=== PATIENT | male | born 1945 | race Caucasian/White ===

== ENCOUNTER → 2019-06-27 13:55 | Outpatient (CLI) | payer MEDICARE, SELFPAY ==
[2016-03-03 15:43] VITALS: BMI 28.8
--- NOTE | 2019-06-27 14:52 | ART_ITS ---
Reason For Study: Diminished pulses Procedure A bilateral lower extremity continuous wave Doppler with analog waveform analysis,segmental pressures,and ankle brachial indexes without exercise. Left Segmental Pressures Left brachial= 130mmHg. Left posterior tibial artery = 225mmHg. Left dorsalis pedis artery = 220mmHg. Left digit = 140 mmHg. The left dorsalis pedis waveforms are triphasic. The left posterior tibial artery waveforms are triphasic. Right Segmental Pressures Right brachial= 131mmHg. Right posterior tibial artery = >254mmHg. Right dorsalis pedis artery = 189mmHg. Right digit = >254 mmHg. The right dorsalis pedis waveforms are triphasic. The right posterior tibial artery waveforms are triphasic. Indices The right ankle brachial index by the dorsalis pedis is 1.44. The right ankle brachial index by the posterior tibial artery is NC. The right digital-brachial index is NC. The left ankle brachial index by the dorsalis pedis is 1.68. The left ankle brachial index by the posterior tibial artery is 1.72. The left digital-brachial index is 1.07. Interpretation Summary Triphasic Doppler waveforms are noted at ankle level bilaterally. Pulse-volume recording waveform amplitudes appear satisfactory at low-thigh, calf, ankle, and digital levels bilaterally. Resting ankle-brachial indices are supra-normal bilaterally. The right digital-brachial index could not be determined due to the non-compressibility of the vasculature. The left digital-brachial index is normal. There is no evidence of arterial occlusive disease at ankle and digital level bilaterally. However, there is evidence of arterial calcification at ankle level bilaterally, and at digital level on the right. Ordering Physician: Amos Church Referring Physician: Jada Castellanos M.D. Performed By: Stephie Patterson RVT
== END ==
PROVIDERS: Family Provider Internal Medicine; PCP Internal Medicine; Referring Provider Podiatrist Foot & Ankle Surgery; Visit Provider Podiatrist Foot & Ankle Surgery
DX: R09.89 Other specified symptoms and signs involving the circulatory and respiratory systems (principal); M86.9 Osteomyelitis, unspecified
CPT/HCPCS: 93923

== ENCOUNTER 2019-07-01 05:56 | Day surgery (SDC) | payer MEDICARE, SELFPAY ==
[2016-03-03 15:43] VITALS: BMI 28.8
[2019-07-01] VITALS (7 sets, daily range): BP systolic 111–145; BP diastolic 51–72; PULSE 70–86; RESP 16; TEMP 36.2–36.7; O2SAT 97–100; BMI 27.1
[2019-07-01] MEDS: Lactated Ringers 1,000 ML 100 ML IV ×2 (06:35→09:35)
[2019-07-01 07:01] LABS: Bedside Glucose 127 mg/dL (70-110)
--- NOTE | 2019-07-01 07:30 | RAD_ITS ---
STUDY: X-RAY RIGHT FOOT, FOURTH TOE REASON FOR EXAM: Male, 74 years old. Pain, surgery. TECHNIQUE: 6 view(s) of the toe were obtained . COMPARISON: None. FINDINGS: Normal visualized metatarsus. The patient is status post amputation of the fourth toe from the distal aspect of the proximal phalanx. There is soft tissue swelling of distal to this level, nonspecific. RAD/Toe(s) Min 2 Views IMPRESSION: Status post amputation of the fourth toe from the distal aspect of the proximal phalanx with nonspecific soft tissue swelling at this level. Electronically Signed: Jo Cortes MD at 0:33 EDT , Service support ,
--- NOTE | 2019-07-01 07:30 | BON_PTH ---
PATIENT: OLAYINKA LICONA [place] [facility] [place][id number] AGE/SX: 74/M ROOM: RE07/01/[address]: Dr. Amos Church DPM : 1945 BED: DIS: 07/01/2019 SPEC #: [id number] RECD: 07/01/19 11:17 STATUS: ALDO REQ #: [id number] RUDDY: 07/01/19 07:[address]: Amos Church DEPT: SURGICAL PATHOLOGY RECD BY: Farzad Butler ENTERED: 07/01/19 13:19 SP TYPE: Bone OTHR DR: Dr. Jada Castellanos MD Tissues: Bone of foot, NOS Procedures: Decalcification bone/plaque Surgery Specimen Level III HEADER OPERATION: Amputation toe, distal Symes, fourth PRE-OP DIAGNOSIS: Osteomyelitis fourth toe right foot TISSUE SUBMITTED: Fourth toe proximal phalanx MICROSCOPIC DIAGNOSIS Fourth toe proximal phalanx, amputation toe: Pieces of bone with reactive changes, negative for acute osteomyelitis. DIMPLE:lc 07/06/19 MICROSCOPIC DESCRIPTION Slides are reviewed. GROSS DESCRIPTION Received in fixative is one container labeled with the patient's name and designated fourth toe proximal phalanx. The specimen consists of three pieces of bone that in aggregate measure 1.5 x 0.6 x 0.3 cm. The entire specimen is submitted in one cassette after decalcification. / DIMPLE:lc 07/01/19 TC:5 CPT: 13529, 63109
--- NOTE | 2019-07-01 09:03 | RAD_ITS ---
STUDY: X-RAY - RIGHT FOOT CLINICAL: Male, 74 years old. Fourth toe amputation. TECHNIQUE: 3 view(s) of the foot. COMPARISON: None. FINDINGS: There is enthesophyte at the Achilles tendon insertion site. Otherwise normal talus, calcaneus, and tarsal bones. There is multilevel degenerative disease involving the visualized subtalar, talonavicular, calcaneocuboid, tarsal and tarsometatarsal articulations. Normal metatarsi. There is degenerative arthrosis of the metatarsophalangeal joint of the hallux . Normal tibial and fibular sesamoid bones. There is degenerative arthrosis of the interphalangeal joint of the great toe. Normal phalanges of the great toe. Normal second through fifth metatarsophalangeal joints. The patient is status post amputation of the fourth finger from the proximal interphalangeal joints distally. There is soft tissue swelling at this level with small amount of air which may be related to recent amputation. An infectious process cannot be entirely excluded. There is narrowing of the interphalangeal joints and phalanges of the lesser toes. Vascular calcifications noted. There is no demonstrated fracture. RAD/Foot min 3 Views IMPRESSION: Is post amputation of the fourth toe from the proximal interphalangeal joint distally. Associated soft tissue swelling with air which may be related to recent surgery. Cannot exclude infectious process in the appropriate clinical context. Clinical correlation recommended. Electronically Signed: Jo Cortes MD at 0:32 EDT , Service support ,
--- NOTE | 2019-07-01 09:07 | DCINST_ITS ---
Discharge Activity: - - walk with post-op shoe. limit walking to bare minimum. elevate foot whenever nonambulatory May shower in (days): 14 Weight Bearing Status: Partial weight bearing - wear post-op shoe Keep extremity elevated above heart level: Operative Extremity Call your doctor if your incision/area has: Continuous Slow Oozing, Sudden Increased Bleeding, Foul Smelling Discharge, Swelling at the incision site Call your doctor if you observe: Fever of 101 or Higher Allergies/Adverse Reactions: Allergies adhesive tape Allergy (Verified 06/28/19 10:43) Rash bacitracin [From Neosporin ([id number])] Allergy (Verified 06/28/19 10:43) Other bacitracin zinc [From Neosporin ([id number]-ojm-ismvz)] Allergy (Verified 06/28/19 10:43) Other neomycin sulfate [From Neosporin (ybn-sjk-zdybo)] Allergy (Verified 06/28/19 10:43) Other polymyxin B [From Neosporin (ygf-xbt-ajnbm)] Allergy (Verified 06/28/19 10:43) Other polymyxin B sulfate [From Polysporin] Allergy (Verified 06/28/19 10:43) Rash Medications to take at Discharge Super Beta Prostate 2 tab PO BID 02/25/16 Cephalexin [Keflex] 500 mg PO TID 06/28/19 Vit A/Vit C/Vit E/Zinc/Copper [Preservision Areds Softgel] 1 ea PO BID 06/28/19 Primary Care Physician: Jada Castellanos MD [Primary Care Provider] - Test Results: Test results from this visit will be discussed in further detail at your follow- up appointment, if applicable. Please Follow Up With: Amos Church DPM - on thursday
[2019-07-01 10:16] LABS: Bedside Glucose 120 mg/dL (70-110)
--- NOTE | 2019-07-02 07:03 | PCM.OPRPT ---
Report of Operation Date of Procedure: 07/01/19 Pre-Operative Diagnosis: osteomyelitis of right 4th toe Post-Operative Diagnosis: osteomyelitis of right 4th toe Surgery/Procedure Performed:: partial amputation, right 4th toe Description of Surgical Findings:: nonviable distal phalanx, right hallux. no purulence in surgical field clinically healthy bone, right 4th toe proximal phalanx Type of Anesthesia:: General/Regional Specimen's removed: right 4th toe proximal phalanx for pathology and micro Drains: none Estimated Blood Loss (mL): 3 cc Description of Procedure: Patient is a 74 year old male who approximately 4 weeks ago, sustained direct injury to his 4th toe. He developed sore to his 4th toe that about 1 week ago developed redness. He presented to urgent care and was given keflex. He saw me last where a tissue culture was performed and revealed gram positive cocci. xrays taken last week were concerning for osteomyelitis of distal phalanx. I saw patient and discussed conservative vs surgical options. conservative options include wound care, antibiotics, possible hyperbarics. surgical options discussed with patient include partial 4th toe amputation. patient would like to pursue partial 4th toe amputation. I have ordered pvr and discussed these results with vascular who feels confident patient will heal. I have referred patient for clearance and he has been cleared both medically and cardiovascularly. I have discussed risks of this procedure not limited to infection, pain, swelling, bleeding, slow wound healing, loss of toe, cardiac arrest, dvt, . patient understands that if he has small vessel disease, he could be at risk of further amputation. patient also understands that if infection progresses to proximal phalanx, either he will require antibiotics vs further amputation. patient consents to procedure. patient was transferred from pre-op holding area and placed on operating room table in supine position. He was administered anesthesia and local field block was given to the 4th toe. a tourniquet was applied to the right leg but was never used. the right lower extremity was prepped and draped in the usual aseptic technique. Attention was directed to the 4th toe where an incision was made disarticuating the toe at pipj. there was no viable bone at distal phalanx. the toe was disarticulated at pipj. Using a sagittal saw, the head of proximal phalanx was resected and sent for pathology and micro. no purulence was present during case. all nonviable tissue was debrided. the toe was irrigated with 2500 cc of saline. the surgical incision was closed with 2-0 and 3-0 nylon. wound edges came together nicely without tension. counts were correct at time of closure. patient was transferred to pacu in stable condition. he was given percocet for pain. he will continue with antibiotic. he will ambulate with post-op shoe. - Complications none
== END 2019-07-01 11:01 | disposition home or self-care (01) ==
LOC: SDC 05:56 → AC 05:57
PROVIDERS: Family Provider Internal Medicine; PCP Internal Medicine; Referring Provider Podiatrist Foot & Ankle Surgery; Visit Provider Podiatrist Foot & Ankle Surgery
PROC: (CPT 28825; principal; 2019-07-01 07:15)
DX: M86.9 Osteomyelitis, unspecified (principal); Z85.038 Personal history of other malignant neoplasm of large intestine
CPT/HCPCS: 28825; 73630; 73660; 76000; 82962; 87015; 87070; 87075; 87077; 87102; 87116; 87176; 87205; 87206; 88304; 88311; J7120; J2405

== ENCOUNTER 2020-01-29 18:37 | Inpatient (IN) | payer MEDICARE, SELFPAY ==
[2019-07-01 06:20] VITALS: BMI 27.1
[2020-01-29 18:39] VITALS: BP 143/69; PULSE 89; RESP 26; TEMP 37.9; O2SAT 100; BMI 26.8
[2020-01-29 18:48] VITALS: BP 143/69; PULSE 89; RESP 26; TEMP 37.9; O2SAT 100
--- NOTE | 2020-01-29 18:58 | EKG12_ITS ---
Test Reason : CP, FEVER Blood Pressure : / mmHG Vent. Rate : 110 BPM Atrial Rate : 110 BPM P-R Int : 134 ms QRS Dur : 136 ms QT Int : 378 ms P-R-T Axes : 026 -75 090 degrees QTc Int : 511 ms Atrial-sensed ventricular-paced rhythm Abnormal ECG Confirmed by SADIQ HOLLINS, RAIZA ([id number]), editor in chief newspaper PATRICIA YOUNGBLOOD ([id number]) on 01/31/2020 3:21:29 PM Referred By: CONG PEARCE Confirmed By:RAIZA BABCOCK MD
--- NOTE | 2020-01-29 19:01 | ED.DCSUM_ITS ---
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 Temperature for EMS 100.9. He states that yesterday he was in his normal state of health. He mowed about 4 acres of grass. He states that today he started shaking and could not stop. He states he has a little bit of discomfort in his chest. He denies any cough or shortness of breath. He denies any runny nose sore throat diarrhea. He denies any changes with his urination. He states he always has problems with his stream and is treated for BPH. He also has a pacemaker for complete heart block and a history of A. fib for which he takes Xarelto. He denies seeing any rashes or skin lesions. Past Medical History - Allergies and Home Meds Allergies/Adverse Reactions: Allergies adhesive tape Allergy (Verified 01/29/20 18:43) Rash bacitracin [From Neosporin (kjl-ikd-pdpda)] Allergy (Verified 01/29/20 18:43) Other bacitracin zinc [From Neosporin (kvz-qnk-lwgxz)] Allergy (Verified 01/29/20 18:43) Other neomycin sulfate [From Neosporin (iqz-kty-ukciv)] Allergy (Verified 01/29/20 18:43) Other polymyxin B [From Neosporin (mln-pdk-rnwzp)] Allergy (Verified 01/29/20 18:43) Other polymyxin B sulfate [From Polysporin] Allergy (Verified 01/29/20 18:43) Rash Primary Care Physician: Jada Castellanos MD [Primary Care Provider] - Surgical History: no surgical history Smoking Status: Never smoker Review of Systems General: Reports: Chills, Fever. Denies: Sweats Eyes: Denies: Visual changes - bilaterally, Diplopia ENT: Denies: Bilateral ear pain, Left ear pain, Right ear pain, Rhinorrhea, Sore throat Cardiovascular: Reports: Chest pain. Denies: Palpitations Respiratory: Denies: Dyspnea, Cough, Dyspnea on exertion Gastrointestinal: Denies: Abdominal pain, Nausea, Vomiting, Diarrhea, Melena, Hematochezia Genitourinary: Denies: Dysuria, Hematuria, Frequency Musculoskeletal: Reports: Myalgias. Denies: Back pain, Extremity Pain Skin: Denies: Rash, Wounds Neurological: Denies: Headache, Weakness, Numbness Physical Exam Vital Signs/Narrative: Vital Signs Temp Pulse Resp BP Pulse Ox 01/29/20 18:48 100.3 F H 89 26 H 143/69 H 100 01/29/20 18:39 100.3 F H 89 26 H 143/69 H 100 Inital Vital Signs reviewed: Yes General: Well nourished, Well developed, No Acute Distress Head: Normocephalic, Atraumatic Eyes: Perrl, EOMI ENT: Moist mucous membranes, No rhinorrhea Neck: Supple, Nontender Cardiovascular: Regular rate, No murmurs, Tachycardia Respiratory: No distress, CTA bilaterally, Chest nontender Abdomen: Soft, Nontender, Nondistended, Normal bowel sounds Back: Nontender, Normal Inspection Extremities: Nontender, No edema Skin: Normal color, No rash Neurological: Alert, Oriented x3, Cranial nerves II-XII grossly intact, Normal Strength, Normal Sensation Psychological: Normal affect, Normal Mood Diagnostic/Tx/Re-eval Clinical Impression(s) from Imaging Studies Chest X-Ray 01/29/20 20:10 IMPRESSION: Slightly prominent bronchopulmonary marking pattern of the lungs, appearing similar to the previous study. There is no evidence of jamie infiltrate, atelectasis, or pleural effusion. Degenerative changes of the thoracic spine. Electronically Signed: Tone Ibrahim MD at 20:44 EDT , Service support , Laboratory Last Values WBC 10.8 K/mm3 (4.4-11.0) 01/29/20 18:45 RBC 4.53 M/mm3 (4.6-6.2) L 01/29/20 18:45 Hgb 13.0 g/dL (13.0-16.5) 01/29/20 18:45 Hct 41.4 % (40-54) 01/29/20 18:45 MCV 91.4 fL (80-94) 01/29/20 18:45 MCH 28.7 pg (27.0-32.0) 01/29/20 18:45 MCHC 31.4 g/dL (32-36) L 01/29/20 18:45 RDW Std Deviation 49.5 fl (35.1-43.9) H 01/29/20 18:45 RDW Coeff of Isael 14.7 % (11.6-14.6) H 01/29/20 18:45 Plt Count 143 K/mm3 (150-450) L 01/29/20 18:45 MPV 12.6 fl (6.2-12.0) H 01/29/20 18:45 Immature Gran % (Auto) 0.600 % (0.0-0.9) 01/29/20 18:45 Neut % (Auto) 88.9 % (47-70) H 01/29/20 18:45 Lymph % (Auto) 8.0 % (19-41) L 01/29/20 18:45 Traill % (Auto) 1.7 % (0-10) 01/29/20 18:45 Eos % (Auto) 0.6 % (0-5) 01/29/20 18:45 Baso % (Auto) 0.2 % (0-1) 01/29/20 18:45 Absolute Neuts (auto) 9.6 X10^3/uL (2.0-7.7) H 01/29/20 18:45 Absolute Lymphs (auto) 0.86 X10^3/uL (0.83-4.51) 01/29/20 18:45 Nucleated RBC % 0 % (0-5) 01/29/20 18:45 PT 15.5 SECONDS (11.7-14.9) H 01/29/20 18:45 INR 1.3 01/29/20 18:45 APTT 36.9 Seconds (24.1-36.2) H 01/29/20 18:45 Sodium 139 mmol/L (136-145) 01/29/20 18:45 Potassium 3.7 mmol/L (3.5-5.1) 01/29/20 18:45 Chloride 105 mmol/L (98-107) 01/29/20 18:45 Carbon Dioxide 30.0 mmol/L (21.0-32.0) 01/29/20 18:45 Anion Gap 4 (5-15) L 01/29/20 18:45 BUN 21 mg/dL (7-18) H 01/29/20 18:45 Creatinine 0.86 mg/dL (0.70-1.30) 01/29/20 18:45 Estim Creat Clear Calc 77.83 ml/min 01/29/20 18:45 Est GFR (MDRD) Af Amer 111 mL/min (>60) 01/29/20 18:45 Est GFR (MDRD) Non-Af 92 mL/min (>60) 01/29/20 18:45 BUN/Creatinine Ratio 24.4 RATIO (10-20) H 01/29/20 18:45 Glucose 101 mg/dL (74-106) 01/29/20 18:45 Lactic Acid 2.7 mmol/L (0.4-1.9) H* 01/29/20 18:45 Calcium 9.3 mg/dL (8.5-10.1) 01/29/20 18:45 Total Bilirubin 0.70 mg/dL (0.20-1.00) 01/29/20 18:45 AST 24 U/L (15-37) 01/29/20 18:45 ALT 28 U/L (16-61) 01/29/20 18:45 Alkaline Phosphatase 97 U/L (45-117) 01/29/20 18:45 Troponin I < 0.015 ng/mL (<0.045) 01/29/20 18:45 Total Protein 7.9 g/dL (6.4-8.2) 01/29/20 18:45 Albumin 4.2 g/dL (3.2-5.0) 01/29/20 18:45 Globulin 3.7 g/dL (2.2-4.2) 01/29/20 18:45 Albumin/Globulin Ratio 1.1 RATIO (0.9-2.4) 01/29/20 18:45 Urine Color Yellow (Yellow) 01/29/20 22: Urine Clarity Clear (Clear) 01/29/20 22: Urine pH 7.0 (5.0 - 8.0) 01/29/20: Ur Specific [place] 1.010 (1.002-1.030) 01/29/20 22: Urine Protein Negative mg/dl (Negative) 01/29/20 22: Urine Glucose (UA) Normal mg/dl (Normal) 01/29/20: Urine Ketones 5 mg/dl (Negative) H 01/29/20 22:27 Urine Occult Blood 25 /ul (Negative) H 01/29/20 22:27 Urine Nitrite Negative (Negative) 01/29/20 22: Urine Bilirubin Negative mg/dL (Negative) 01/29/20 22: Urine Urobilinogen Normal mg/dl (Normal) 01/29/20 22:27 Ur Leukocyte Esterase Negative /ul (Negative) 01/29/20 22:27 Urine RBC 0-5 SEEN /hpf (0-5) 01/29/20 22:27 Urine WBC 0-5 SEEN /hpf (0-5) 01/29/20 22:27 Ur Squamous Epith Cells 0-5 SEEN /hpf (0-5) 01/29/20 22: Urine Bacteria 0 SEEN /hpf (None Seen) 01/29/20 22: Urine Mucus 0 SEEN /hpf (<or=2+) 01/29/20 22:27 COVID-19 (HARITHA) Cancelled 01/29/20 19:02 - EKG Initial EKG Interpretation: - - EKG is ventricularly paced rhythm at a rate of 110 - Medical Decision Making At this point we do not have an obvious source. His COVID is negative. Urine negative chest x-ray with no obvious infiltrate. After blood cultures she received vancomycin and Zosyn. Plan is admission ED Disposition - Plan for ED Patient: Disposition: Acute Care Hospital [facility] Diagnosis: Sepsis, Fever, unknown origin Referrals: Jada Castellanos MD [Primary Care Provider] -
[2020-01-29 19:08] VITALS: BP 126/52; PULSE 110; RESP 20; O2SAT 97
[2020-01-29 19:16] LABS: Absolute Lymphocyte Count 0.86 X10^3/uL (0.83-4.51); Absolute Neutrophil Count 9.6 X10^3/uL (2.0-7.7); Basophil# 0.02 X10^3/uL; Basophil% 0.2 % (0-1); Eosinophil# 0.06 X10^3/uL; Eosinophils% 0.6 % (0-5); Hematocrit 41.4 % (40-54); Lymphocyte # 0.86 X10^3/ul (4.0); Mean Corp Hgb Conc 31.4 g/dL (32-36); Mean Corpuscular Hgb 28.7 pg (27.0-32.0); Mean Corpuscular Volume 91.4 fL (80-94); Mean Platelet Vol. 12.6 fl (6.2-12.0); Monocyte# 0.18 X10^3/uL; Monocyte% 1.7 % (0-10); NRBC Flagged by Analyzer 0 % (0-5); Neutrophil # 9.63 X10^3/uL (2.7-7.7); Neutrophil % 88.9 % (47-70); Platelet Count 143 K/mm3 (150-450); RBC Distribution Width CV 14.7 % (11.6-14.6); RBC Distribution Width SD 49.5 fl (35.1-43.9); Red Blood Count 4.53 M/mm3 (4.6-6.2); White Blood Count 10.8 K/mm3 (4.4-11.0)
[2020-01-29] MEDS: 0.9% Normal Saline 1,000 ML 999 ML IV (19:17)
[2020-01-29] MEDS: Acetaminophen 500 MG Tablet 1000 MG PO (19:18)
[2020-01-29] MEDS: 0.9% Normal Saline 1,000 ML 150 ML IV (19:20)
--- NOTE | 2020-01-29 19:21 | ED.RN ---
THIS NURSE IN THE ROOM COMPLETING EKG. PT STATES PLEASE DON'T LEAVE. I DON'T FEEL GOOD. SOMETHING IS WRONG. THIS NURSE ATTEMPTED TO CLARIFY WHAT THE PT MEANT BY THIS. PT UNABLE TO DESCRIBE FURTHER. DOES STATE I'M DIZZY. HEAD OF BED LOWERED. PT ENCOURAGED TO REST HIS HEAD BACK. PT PLACED ON O2 2L/MIN VIA NC. ADDITIONAL BP ATTEMPTED. BP CUFF NOT WORKING. BP CUFF CHANGED. PLACED ON LEFT UPPER ARM. PT CONTINUES TO COMPLAIN ABOUT SOMETHING NOT BEING RIGHT. PT SYMPTOMS IMPROVING. PT OK WITH THIS NURSE LEAVING THE ROOM. DR PEARCE NOTIFIED OF THE SAME.
[2020-01-29 19:23] LABS: International Normalized Ratio 1.3; Prothrombin Time (Protime)PT. 15.5 SECONDS (11.7-14.9)
[2020-01-29 19:24] LABS: Partial Thromboplast Time 36.9 Seconds (24.1-36.2)
[2020-01-29 19:26] VITALS: BP 126/52; PULSE 111; RESP 15; TEMP 38.3; O2SAT 100
[2020-01-29 19:37] LABS: ALB/GLOB Ratio 1.1 RATIO (0.9-2.4); AST(SGOT) 24 U/L (15-37); Alanine Aminotransfer ALT/SGPT 28 U/L (16-61); Albumin, Serum 4.2 g/dL (3.2-5.0); Alkaline Phosphatase 97 U/L (45-117); Anion Gap 4 (5-15); BUN 21 mg/dL (7-18); BUN/Creat Ratio 24.4 RATIO (10-20); Calcium,Total 9.3 mg/dL (8.5-10.1); Chloride 105 mmol/L (98-107); Creatinine, Serum 0.86 mg/dL (0.70-1.30); EST Glomerular Filtration Rate 92 mL/min (>60); Est Glom Filt Rate - Afr Amer 111 mL/min (>60); Estimated Creatinine Clearance 77.83 ml/min; Globulin 3.7 g/dL (2.2-4.2); Glucose 101 mg/dL (74-106); Potassium 3.7 mmol/L (3.5-5.1); Protein, Total 7.9 g/dL (6.4-8.2); Sodium Level 139 mmol/L (136-145)
[2020-01-29 19:59] LABS: Lactic Acid 2.7 mmol/L (0.4-1.9)
--- NOTE | 2020-01-29 20:10 | RAD_ITS ---
STUDY: X-RAY CHEST REASON FOR EXAM: Male, 74 years old. FEVER, CHEST TIGHTNESS, CHILLS TECHNIQUE: Single AP portable view of the chest. COMPARISON: Prior study of 01/09/2015 FINDINGS: monitoring specialist leads are present. There is a bipolar left-sided pacemaker. There is a slightly prominent bronchopulmonary marking pattern of the lungs. There is no demonstrated pleural abnormality. Normal size heart. Normal mediastinum and [place]. Normal visualized pulmonary arteries. Normal visualized aortic arch and descending thoracic aorta. There are diffuse degenerative changes of the visualized thoracic spine. Normal visualized ribs, clavicles, and shoulders. There is no demonstrated abnormality of the visualized soft tissue structures of the upper abdomen. RAD/Chest 1 View (Portable) IMPRESSION: Slightly prominent bronchopulmonary marking pattern of the lungs, appearing similar to the previous study. There is no evidence of jamie infiltrate, atelectasis, or pleural effusion. Degenerative changes of the thoracic spine. Electronically Signed: Tone Ibrahim MD at 20:44 EDT , Service support ,
[2020-01-29 20:41] VITALS: BP 137/48; PULSE 100; RESP 20; TEMP 37.9
[2020-01-29 22:30] VITALS: BP 103/57; PULSE 106; RESP 15; TEMP 37.3; O2SAT 97
[2020-01-29 22:39] LABS: Bacteria 0 SEEN /hpf (None Seen); Mucous, Urine 0 SEEN /hpf (<or=2+)
--- NOTE | 2020-01-29 22:46 | HP.PCM_ITS ---
Problem List (1) Severe sepsis Status: Acute (2) Sepsis Status: Acute (3) Diabetes Status: Chronic (4) Pacemaker Status: Chronic History of Present Illness Date of Admission: 01/29/20 Chief Complaint: Chills and rigors The patient is a 74 year old M with a significant history of colon cancer status post colectomy and radiation; permanent pacemaker; atrial fibrillation; diabetes mellitus; and BPH who presents emergency department with chills and rigors. His temperature checked by paramedics was 100.9 Fahrenheit. His symptoms started on the same day of presentation. A day before presentation patient was healthy and mowed 4 acres of grass. Patient denies any shortness of breath or cough. He denies any abdominal or new urinary symptoms. A chest x-ray and urinalysis was unrevealing. Lactic acid was 2.7. At the emergency department T-max was 100.9F. Heart rate was more than 90. Respiratory rate was more than 20. Covid test done at emergency department was negative. Past Medical History Past Medical History (Chronic Problems): Chronic Problems Diabetes (Chronic) Pacemaker (Chronic) Allergies adhesive tape Allergy (Verified 01/29/20 18:43) Rash bacitracin [From Neosporin ([id number])] Allergy (Verified 01/29/20 18:43) Other bacitracin zinc [From Neosporin ([id number])] Allergy (Verified 01/29/20 18:43) Other neomycin sulfate [From Neosporin ([id number])] Allergy (Verified 01/29/20 18:43) Other polymyxin B [From Neosporin ([id number])] Allergy (Verified 01/29/20 18:43) Other polymyxin B sulfate [From Polysporin] Allergy (Verified 01/29/20 18:43) Rash Home Medications: Ambulatory Orders Medication Instructions Recorded Super Beta Prostate 2 tab PO BID 02/25/16 Vit A/Vit C/Vit E/Zinc/Copper 1 ea PO BID 06/28/19 [Preservision Areds Softgel] Rivaroxaban [Xarelto] 20 mg PO DAILY 01/29/20 Surgical History: appendectomy, - - Permanent pacemaker; colectomy Smoking Status: Never smoker - *Family History Maternal History Items: Stroke Paternal History Items: - - His father in his late 60s reportedly from fluid around his heart. Review of Systems Constitutional: Reports: Chills, Fever. Denies: Weight Change HEENT: Denies: Head Aches, Sinus Congestion, Sinus Drainage Cardiovascular: Denies: Chest Pain, Palpitations Respiratory: Denies: Cough, Shortness of Breath, Shortness of breath at rest, Sputum production Gastrointestinal: Denies: Abdominal Pain, Nausea, Vomiting Genitourinary: Denies: Dysuria Musculoskeletal: Denies: Joint Pain, Joint Tenderness Skin: Denies: Rash, Wounds Neurological: Denies: Numbness, Tingling, Focal weakness Psychiatric: Denies: Anxiety, Depression, Homicidal Ideations, Suicidal Ideations Hematologic/ Lymphatic: Denies: Easy Bruising, Easy Bleeding VTE Information - Inpt Only VTE Present on Admission: No VTE Mechan Device Prophylaxis: None VTE Pharm Prophylaxis ordered?: No Reason prophylaxis not ordered:: Treatment Not Indicated - Home Xarelto for A. fib continued. Patient Problems: Active and Suspected Problems Sepsis (Acute) Severe sepsis (Acute) - Physical Exam Vitals/I&O's: Vital Signs Temp Pulse Resp BP Pulse Ox 99.2 F H 106 H 15 103/57 L 97 01/29/20 22:30 01/29/20 22:30 01/29/20 22:30 01/29/20 22:30 01/29/20 22:30 Oxygen Flow Rate (L/min) 2 Oxygen Delivery Method Room Air Weight: 87.3 kg Body Mass Index (BMI) 26.8 Finger Stick Blood Glucose 120 General: Alert, Oriented x3, Cooperative HEENT: Atraumatic, PERRLA, EOMI, Normocephalic Neck: Supple, No JVD, Negative Carotid Bruits Lungs: Clear to auscultation, Normal air movement, No rhonchi, No wheeze, No rales, Tachypneic Cardiovascular: Normal S1, Normal S2, No murmurs, Tachycardic Abdomen: Bowel Sounds Present, Soft, Non Tender Extremities: No edema, Capillary Refill Less than 3 Seconds Skin: No rashes, No breakdown Musculoskeletal: No Tenderness to Palpation of Joints or Extremities Neurological: Cranial nerves II-XII grossly intact Psych/Mental Status: Normal Affect, Appropriate Microbiology Past 72 Hours 01/29/20 19:02 Mucosa - Nasopharyngeal Coronavirus COVID-19 PCR - Final Laboratory Results 01/29/20 18:45: WBC 10.8, RBC 4.53 L, Hgb 13.0, Hct 41.4, MCV 91.4, MCH 28.7, MCHC 31.4 L, RDW Std Deviation 49.5 H, RDW Coeff of Isael 14.7 H, Plt Count 143 L, MPV 12.6 H, Immature Gran % (Auto) 0.600, Neut % (Auto) 88.9 H, Lymph % (Auto) 8.0 L, [place] % (Auto) 1.7, Eos % (Auto) 0.6, Baso % (Auto) 0.2, Absolute Neuts (auto) 9.6 H, Absolute Lymphs (auto) 0.86, Nucleated RBC % 0 01/29/20 18:45: PT 15.5 H, INR 1.3, APTT 36.9 H 01/29/20 18:45: Sodium 139, Potassium 3.7, Chloride 105, Carbon Dioxide 30.0, Anion Gap 4 L, BUN 21 H, Creatinine 0.86, Estim Creat Clear Calc 77.83, Est GFR (MDRD) Af Amer 111, Est GFR (MDRD) Non-Af 92, BUN/Creatinine Ratio 24.4 H, Glucose 101, Calcium 9.3, Total Bilirubin 0.70, AST 24, ALT 28, Alkaline Phosphatase 97, Troponin I < 0.015, Total Protein 7.9, Albumin 4.2, Globulin 3.7, Albumin/Globulin Ratio 1.1 01/29/20 18:45: Lactic Acid 2.7 H* 01/29/20 19:02: COVID-19 (HARITHA) Cancelled 01/29/20 22:27: Urine Color Pending, Urine Clarity Pending, Urine pH Pending, Ur Specific [place] Pending, Urine Protein Pending, Urine Glucose (UA) Pending, Urine Ketones Pending, Urine Occult Blood Pending, Urine Nitrite Pending, Urine Bilirubin Pending, Urine Urobilinogen Pending, Ur Leukocyte Esterase Pending, Urine RBC Pending, Urine WBC Pending, Ur Squamous Epith Cells Pending, Urine Bacteria Pending, Urine Mucus Pending Current Medications Sodium Chloride () 1,000 mls @ 150 mls/hr IV .[id number] [facility] Last Admin: 05/24/20 19:20 Dose: 150 mls/hr Documented by: Piperacillin Sod/Tazobactam (Sod 4.5 gm/ Sodium Chloride) 100 mls @ 200 mls/hr IV X1 ONE Stop: 01/29/20 22:52 Vancomycin HCl 2,000 mg/ (Sodium Chloride) 540 mls @ 250 mls/hr IV X1 ONE Stop: 01/30/20 00:39 Assessment/Plan All Active Problems Sepsis (Acute) Severe sepsis (Acute) The patient is a 74 year old M with a significant history of colon cancer status post colectomy and radiation; permanent pacemaker; atrial fibrillation; diabetes mellitus; and BPH who presents emergency department with chills and rigors and found to have SIRS criteria and with elevated lactic acid but no definite source of infection concerning for severe sepsis without a known source. Severe sepsis with unknown origin Patient meets SIRS criteria with fever; tachycardia and tachypnea. Lactic acid 2.7 means he meets severe sepsis criteria. Of note there is no source. COVID screen at emergency department was negative. Repeat covid screening a.m. Placed on enhanced precautions. COVID protocol. Admit to ICU. Consult cubing machine tender. Received vancomycin and Zosyn at emergency department. Continue vancomycin and Zosyn. Urinalysis was unremarkable. Chest x-ray was unr emarkable. Follow blood cultures obtained at emergency department. Lactic acid has been trended. Tylenol PRN. Received IV fluid bolus at emergency department and started on maintenance IV infusion. Continue maintenance IV infusion. Respiratory pathogen panel ordered. History of atrial fibrillation Xarelto continued. BPH: on home medication for BPH DVT prophylaxis: Not indicated since patient is on Xarelto. Xarelto continued. Inpatient E&M: 65136 Init Hosp L3
[2020-01-29 23:11] LABS: Reflex Lactate? Y
[2020-01-29 23:15] LABS: Color, Urine Yellow (Yellow); Glucose, Dipstick Normal (Normal); Ketone-Dipstick 5 mg/dl (Negative); Urine Bilirubin Dipstick Negative (Negative); Urine Clarity Clear (Clear)
[2020-01-29 23:16] LABS: Leukocyte Esterase-Dipstick Negative /ul (Negative); Nitrite-Dipstick Negative (Negative); Occult Blood-Urine 25 /ul (Negative); Protein-Dipstick Negative (Negative); Urine Urobilinogen Normal (Normal)
[2020-01-29 23:18] LABS: Squamous Epithelial Cells - UA 0-5 SEEN /hpf (0-5)
[2020-01-29 23:19] LABS: Red Blood Cells-Urine 0-5 SEEN /hpf (0-5); White Blood Cells 0-5 SEEN /hpf (0-5)
[2020-01-30] VITALS (58 sets, daily range): BP systolic 72–127; BP diastolic 28–63; PULSE 70–98; RESP 10–22; TEMP 36.6–37.2; O2SAT 96–100; BMI 26.4
[2020-01-30 00:59] LABS: Ferritin 482 ng/mL (26-388); Triglycerides 64 mg/dL
[2020-01-30] MEDS: 0.9% Normal Saline 1,000 ML 150 ML IV (01:11)
[2020-01-30 01:17] LABS: Lactic Acid 2.6 mmol/L (0.4-1.9)
--- NOTE | 2020-01-30 01:17 | NURSING ---
Pts primary rn aware of lactic result of 2.6 at this time.
--- NOTE | 2020-01-30 01:36 | PHA.PHARE_ITS ---
Consult Pharmacy has been consulted to manage selected antiobiotic: Vancomycin Type of Consult: New start Labs: Sodium 139 mmol/L (136-145) 01/29/20 18:45 Potassium 3.7 mmol/L (3.5-5.1) 01/29/20 18:45 Chloride 105 mmol/L (98-107) 01/29/20 18:45 Carbon Dioxide 30.0 mmol/L (21.0-32.0) 01/29/20 18:45 Anion Gap 4 (5-15) L 01/29/20 18:45 BUN 21 mg/dL (7-18) H 01/29/20 18:45 Creatinine 0.86 mg/dL (0.70-1.30) 01/29/20 18:45 Est GFR (MDRD) Af Amer 111 mL/min (>60) 01/29/20 18:45 Est GFR (MDRD) Non-Af 92 mL/min (>60) 01/29/20 18:45 BUN/Creatinine Ratio 24.4 RATIO (10-20) H 01/29/20 18:45 Glucose 101 mg/dL (74-106) 01/29/20 18:45 Microbiology: Microbiology 01/29/20 19:02 Mucosa - Nasopharyngeal Coronavirus COVID-19 PCR - Final Goal Trough: 15-20 mcg/mL Pharmacy Plan for Drug Dosing: Pharmacy Service will continue to monitor and adjust dosing as required. Medications Vancomycin HCl 1,250 mg/ (Sodium Chloride) 275 mls @ 167 mls/hr IV Q12H MELO Discontinued Medications Vancomycin HCl 2,000 mg/ (Sodium Chloride) 540 mls @ 250 mls/hr IV X1 ONE Stop: 01/30/20 00:39 Last Admin: 01/30/20 01:29 Dose: Infused Documented by: Follow-Up Labs: Trough Vancomycin Labs to be done on [date and time ordered]: 01/30 @ 1035
--- NOTE | 2020-01-30 02:24 | SEPSIS_ITS ---
Sepsis Note - Physical Exam/Vitals Objective: Chest X-Ray 01/29/20 20:10 IMPRESSION: Slightly prominent bronchopulmonary marking pattern of the lungs, appearing similar to the previous study. There is no evidence of jamie infiltrate, atelectasis, or pleural effusion. Degenerative changes of the thoracic spine. Electronically Signed: Tone Ibrahim MD at 20:44 EDT , Service support , Temp Pulse Resp BP Pulse Ox 98.6 F 72 13 72/35 L 100 01/30/20 00:57 01/30/20 02:00 01/30/20 02:00 01/30/20 02:00 01/30/20 02:00 01/30/20 01/30/20 01/29/20 00:53 00:26 22:27 WBC RBC Hgb Hct MCV MCH MCHC RDW Std Deviation RDW Coeff of Isael Plt Count MPV Immature Gran % (Auto) Neut % (Auto) Lymph % (Auto) [place] % (Auto) Eos % (Auto) Baso % (Auto) Absolute Neuts (auto) Absolute Lymphs (auto) Nucleated RBC % PT INR APTT Sodium Potassium Chloride Carbon Dioxide Anion Gap BUN Creatinine Estim Creat Clear Calc Est GFR (MDRD) Af Amer Est GFR (MDRD) Non-Af BUN/Creatinine Ratio Glucose Lactic Acid 2.6 H* Calcium Ferritin Total Bilirubin AST ALT Alkaline Phosphatase Troponin I Total Protein Albumin Globulin Albumin/Globulin Ratio Triglycerides Procalcitonin Urine Color Yellow Urine Clarity Clear Urine pH 7.0 Ur Specific [place] 1.010 Urine Protein Negative Urine Glucose (UA) Normal Urine Ketones 5 H Urine Occult Blood 25 H Urine Nitrite Negative Urine Bilirubin Negative Urine Urobilinogen Normal Ur Leukocyte Esterase Negative Urine RBC 0-5 SEEN Urine WBC 0-5 SEEN Ur Squamous Epith Cells 0-5 SEEN Urine Bacteria 0 SEEN Urine Mucus 0 SEEN COVID-19 (HARITHA) MRSA (PCR) Pending 01/29/20 01/29/20 01/29/20 19:02 18:45 18:45 WBC RBC Hgb Hct MCV MCH MCHC RDW Std Deviation RDW Coeff of Isael Plt Count MPV Immature Gran % (Auto) Neut % (Auto) Lymph % (Auto) [place] % (Auto) Eos % (Auto) Baso % (Auto) Absolute Neuts (auto) Absolute Lymphs (auto) Nucleated RBC % PT INR APTT Sodium Potassium Chloride Carbon Dioxide Anion Gap BUN Creatinine Estim Creat Clear Calc Est GFR (MDRD) Af Amer Est GFR (MDRD) Non-Af BUN/Creatinine Ratio Glucose Lactic Acid Calcium Ferritin 482 H Total Bilirubin AST ALT Alkaline Phosphatase Troponin I Total Protein Albumin Globulin Albumin/Globulin Ratio Triglycerides 64 Procalcitonin Pending Urine Color Urine Clarity Urine pH Ur Specific [place] Urine Protein Urine Glucose (UA) Urine Ketones Urine Occult Blood Urine Nitrite Urine Bilirubin Urine Urobilinogen Ur Leukocyte Esterase Urine RBC Urine WBC Ur Squamous Epith Cells Urine Bacteria Urine Mucus COVID-19 (HARITHA) Cancelled MRSA (PCR) 01/29/20 01/29/20 01/29/20 18:45 18:45 18:45 WBC RBC Hgb Hct MCV MCH MCHC RDW Std Deviation RDW Coeff of Isael Plt Count MPV Immature Gran % (Auto) Neut % (Auto) Lymph % (Auto) [place] % (Auto) Eos % (Auto) Baso % (Auto) Absolute Neuts (auto) Absolute Lymphs (auto) Nucleated RBC % PT 15.5 H INR 1.3 APTT 36.9 H Sodium 139 Potassium 3.7 Chloride 105 Carbon Dioxide 30.0 Anion Gap 4 L BUN 21 H Creatinine 0.86 Estim Creat Clear Calc 77.83 Est GFR (MDRD) Af Amer 111 Est GFR (MDRD) Non-Af 92 BUN/Creatinine Ratio 24.4 H Glucose 101 Lactic Acid 2.7 H* Calcium 9.3 Ferritin Total Bilirubin 0.70 AST 24 ALT 28 Alkaline Phosphatase 97 Troponin I < 0.015 Total Protein 7.9 Albumin 4.2 Globulin 3.7 Albumin/Globulin Ratio 1.1 Triglycerides Procalcitonin Urine Color Urine Clarity Urine pH Ur Specific [place] Urine Protein Urine Glucose (UA) Urine Ketones Urine Occult Blood Urine Nitrite Urine Bilirubin Urine Urobilinogen Ur Leukocyte Esterase Urine RBC Urine WBC Ur Squamous Epith Cells Urine Bacteria Urine Mucus COVID-19 (HARITHA) MRSA (PCR) 01/29/20 18:45 WBC 10.8 RBC 4.53 L Hgb 13.0 Hct 41.4 MCV 91.4 MCH 28.7 MCHC 31.4 L RDW Std Deviation 49.5 H RDW Coeff of Isael 14.7 H Plt Count 143 L MPV 12.6 H Immature Gran % (Auto) 0.600 Neut % (Auto) 88.9 H Lymph % (Auto) 8.0 L [place] % (Auto) 1.7 Eos % (Auto) 0.6 Baso % (Auto) 0.2 Absolute Neuts (auto) 9.6 H Absolute Lymphs (auto) 0.86 Nucleated RBC % 0 PT INR APTT Sodium Potassium Chloride Carbon Dioxide Anion Gap BUN Creatinine Estim Creat Clear Calc Est GFR (MDRD) Af Amer Est GFR (MDRD) Non-Af BUN/Creatinine Ratio Glucose Lactic Acid Calcium Ferritin Total Bilirubin AST ALT Alkaline Phosphatase Troponin I Total Protein Albumin Globulin Albumin/Globulin Ratio Triglycerides Procalcitonin Urine Color Urine Clarity Urine pH Ur Specific [place] Urine Protein Urine Glucose (UA) Urine Ketones Urine Occult Blood Urine Nitrite Urine Bilirubin Urine Urobilinogen Ur Leukocyte Esterase Urine RBC Urine WBC Ur Squamous Epith Cells Urine Bacteria Urine Mucus COVID-19 (HARITHA) MRSA (PCR) General: Alert, Oriented x3, Cooperative Lungs: Clear to auscultation, Normal air movement Cardiovascular: Regular rate, Regular Rhythm, No murmurs Capillary Refill: <3 seconds Peripheral Pulses: Normal Skin Color: [place] - Attestation Sepsis Attestation: Sepsis re-evaluation was performed
[2020-01-30] MEDS: 0.9% Normal Saline 1,000 ML 500 ML IV (02:32)
[2020-01-30 02:42] LABS: M R Staph aureus DNA By PCR Negative (Negative)
[2020-01-30 02:43] LABS: Probe Check PASS; Specimen Processing Control PASS
[2020-01-30 04:31] LABS: Basophil# 0.01 X10^3/uL; Basophil% 0.1 % (0-1); Eosinophil# 0.01 X10^3/uL; Eosinophils% 0.1 % (0-5); Hematocrit 32.6 % (40-54); Hemoglobin 10.4 g/dL (13.0-16.5); Lymphocyte % 7.8 % (19-41); Mean Corp Hgb Conc 31.9 g/dL (32-36); Mean Corpuscular Hgb 29.3 pg (27.0-32.0); Mean Corpuscular Volume 91.8 fL (80-94); Mean Platelet Vol. 11.1 fl (6.2-12.0); Monocyte% 6.2 % (0-10); NRBC Flagged by Analyzer 0 % (0-5); Neutrophil # 11.03 X10^3/uL (2.7-7.7); Neutrophil % 85.6 % (47-70); POSITIVE COUNT YES; Platelet Count 89 K/mm3 (150-450); RBC Distribution Width CV 15.2 % (11.6-14.6); RBC Distribution Width SD 50.8 fl (35.1-43.9); Red Blood Count 3.55 M/mm3 (4.6-6.2); White Blood Count 12.9 K/mm3 (4.4-11.0)
[2020-01-30 04:32] LABS: Differential Indicated SCAN CRITERIA MET
[2020-01-30 04:41] LABS: Anion Gap 7 (5-15); BUN 17 mg/dL (7-18); BUN/Creat Ratio 18.9 RATIO (10-20); Calcium,Total 7.7 mg/dL (8.5-10.1); Chloride 111 mmol/L (98-107); EST Glomerular Filtration Rate 87 mL/min (>60); Est Glom Filt Rate - Afr Amer 106 mL/min (>60); Estimated Creatinine Clearance 74.37 ml/min; Glucose 128 mg/dL (74-106); Sodium Level 143 mmol/L (136-145)
[2020-01-30 04:51] LABS: Differential Comment SCANNED
--- NOTE | 2020-01-30 05:14 | NURSING ---
Explained to pt risks/benefits of Levophed IV infusion for BP control; also explained increased frequency of BP monitoring. Pt repeated back information and stated understanding.
[2020-01-30] MEDS: 0.9% Saline Lock 10 ML Syringe IV (05:19)
--- NOTE | 2020-01-30 07:55 | CON.PCM_ITS ---
Problem List (1) BPH associated with nocturia Status: Acute (2) Septic shock Status: Acute (3) Sepsis Status: Acute Qualifiers: Sepsis acute organ dysfunction status: with acute organ dysfunction Severe sepsis acute organ dysfunction type: unspecified Severe sepsis shock status: with septic shock (4) Diabetes Status: Chronic (5) Pacemaker Status: Chronic Reason for Consult Date of Consultation: 01/30/20 Reason for Consultation: Septic shock History of Present Illness: The patient is a 74 year old M, with past medical history listed below, who presented to [facility] on 01/29/2020 secondary to fever and chills. Patient reportedly had mowed approximately 2 acres of grass earlier in the day, but on coming back into the house could not stop shaking. Patient did report some mild chest discomfort, but had denied any prodromal cough or shortness of breath. Patient has had constipation and been taking laxatives recently. Patient does report urinary hesitancy at baseline. Patient does have a history of complete heart block, A. fib and pacemaker. Patient takes Xarelto at baseline. No rashes or skin lesions have been reported. In the ER, patient had an extensive work-up. Patient had a negative COVID test, but remains in precaution secondary to continued concern. Chest x-ray showed no acute infiltrate. Blood cultures were obtained and patient was placed on vancomycin and Zosyn. Patient was admitted to the intensive care unit for further monitoring. Overnight, patient became progressively hypotensive. Patient had to be initiated on Levophed at 5 mcg to maintain appropriate blood pressures. Patient reports subjective improvement in overall condition. Patient states his chest pain is reproducible with palpation and he believes it is secondary to a pulled muscle. Patient denies any current dysuria. Patient does take herbal medications for prostate and states that he had surgery several years ago. Patient has been reportedly resistant to medication such as Flomax in the past. Patient did report that he has had some recent constipation. Patient had significant straining and did report hematochezia yesterday. This has not persisted overnight. This was not associated with nausea or vomiting. Patient does not have a history of GI bleed, but does have hemorrhoids per his report. Review of systems otherwise negative from a constitutional, HEENT, respiratory, cardiovascular, GI, genitourinary, musculoskeletal, skin, neurologic, psychiatric and hematologic system unless stated above. Past Medical History Past Medical History (Chronic Problems): Chronic Problems Diabetes (Chronic) Pacemaker (Chronic) Allergies adhesive tape Allergy (Verified 01/29/20 18:43) Rash bacitracin [From Neosporin ([id number])] Allergy (Verified 01/29/20 18:43) Other bacitracin zinc [From Neosporin ([id number])] Allergy (Verified 01/29/20 18:43) Other neomycin sulfate [From Neosporin ([id number])] Allergy (Verified 01/29/20 18:43) Other polymyxin B [From Neosporin ([id number])] Allergy (Verified 01/29/20 18:43) Other polymyxin B sulfate [From Polysporin] Allergy (Verified 01/29/20 18:43) Rash Home Medications: Ambulatory Orders Medication Instructions Recorded Super Beta Prostate 2 tab PO BID 02/25/16 Vit A/Vit C/Vit E/Zinc/Copper 1 ea PO BID 06/28/19 [Preservision Areds Softgel] Rivaroxaban [Xarelto] 20 mg PO DAILY 01/29/20 Surgical History: appendectomy, - - Permanent pacemaker; colectomy Smoking Status: Never smoker - *Family History Maternal History Items: Stroke Paternal History Items: - - His father in his late 60s reportedly from fluid around his heart. Review of Systems Comment: See HPI Patient Problems: Active and Suspected Problems BPH associated with nocturia (Acute) Septic shock (Acute) Sepsis (Acute) Severe sepsis (Acute) Fever, unknown origin (Acute) Objective: All imaging was personally reviewed. Chest x-ray was unremarkable. Patient has not had any recent cardiovascular work-up. Patient has not had any pulmonary function test. - Physical Exam Vitals/I&O's: Vital Signs Temp Pulse Resp BP Pulse Ox 36.6 C 70 15 117/52 L 100 01/30/20 04:00 01/30/20 07:00 01/30/20 07:00 01/30/20 07:00 01/30/20 07:00 Oxygen Flow Rate (L/min) 2 Oxygen Delivery Method Nasal Cannula Weight: 85.8 kg Body Mass Index (BMI) 26.4 Finger Stick Blood Glucose 120 Intake and Output for Last 24 Hours 01/28/20 01/29/20 01/30/20 23:59 23:59 23:59 Intake Total 1100 / 1100 2741.48 / 2741.48 Output Total 525 / 525 Balance 1100 / 1100 2216.48 / 2216.48 General: Alert, Oriented x3, Cooperative, No apparent distress, Well developed, Well nourished, - - Appears stated age. No conversational dyspnea. HEENT: Atraumatic, PERRLA, EOMI, Normocephalic, - - No scleral icterus or injection noted Oral: Moist Mucosa, No Gingival or Mucosal Lesions/ Ulcerations Neck: Supple, No JVD, No Nodes, Trachea Midline Lungs: Clear to auscultation, Normal air movement, No rhonchi, No wheeze, No rales, - - Symmetric expansion. No dullness to percussion. Cardiovascular: Regular rate, Regular Rhythm, Normal S1, Normal S2, No murmurs, No rub noted, No Gallop, - - Paced rhythm Abdomen: Bowel Sounds Present, Soft, Non Tender, Non-Distended Extremities: No clubbing, No cyanosis, No edema, Capillary Refill Less than 3 Seconds Skin: No rashes, No breakdown Musculoskeletal: No Tenderness to Palpation of Joints or Extremities Lymphatic: No Cervical, Supraclavicular, or Inguinal Adenopathy Neurological: Cranial nerves II-XII grossly intact, Neuro grossly intact, Motor Exam 5/5 strength throughout Psych/Mental Status: Alert and oriented to time, place, person, mood and affect Microbiology Past 72 Hours 01/30/20 00:15 Mucosa - Nose Respiratory Panel (PCR) - Final 01/29/20 10:27 Urine, Clean Catch Streptococcus pneumoniae Antigen (M - Final 01/29/20 10:27 Urine, Random Legionella Antigen - Final 01/29/20 19:02 Mucosa - Nasopharyngeal Coronavirus COVID-19 PCR - Final Laboratory Results 01/29/20 18:45: WBC 10.8, RBC 4.53 L, Hgb 13.0, Hct 41.4, MCV 91.4, MCH 28.7, MCHC 31.4 L, RDW Std Deviation 49.5 H, RDW Coeff of Isael 14.7 H, Plt Count 143 L, MPV 12.6 H, Immature Gran % (Auto) 0.600, Neut % (Auto) 88.9 H, Lymph % (Auto) 8.0 L, [place] % (Auto) 1.7, Eos % (Auto) 0.6, Baso % (Auto) 0.2, Absolute Neuts (auto) 9.6 H, Absolute Lymphs (auto) 0.86, Nucleated RBC % 0 01/29/20 18:45: PT 15.5 H, INR 1.3, APTT 36.9 H 01/29/20 18:45: Sodium 139, Potassium 3.7, Chloride 105, Carbon Dioxide 30.0, Anion Gap 4 L, BUN 21 H, Creatinine 0.86, Estim Creat Clear Calc 77.83, Est GFR (MDRD) Af Amer 111, Est GFR (MDRD) Non-Af 92, BUN/Creatinine Ratio 24.4 H, Glucose 101, Calcium 9.3, Total Bilirubin 0.70, AST 24, ALT 28, Alkaline Phosphatase 97, Troponin I < 0.015, Total Protein 7.9, Albumin 4.2, Globulin 3.7, Albumin/Globulin Ratio 1.1 01/29/20 18:45: Lactic Acid 2.7 H* 01/29/20 18:45: Ferritin 482 H, Triglycerides 64 01/29/20 18:45: Procalcitonin Pending 01/29/20 19:02: COVID-19 (HARITHA) Cancelled 01/29/20 22:27: Urine Color Yellow, Urine Clarity Clear, Urine pH 7.0, Ur Sp ecific [place] 1.010, Urine Protein Negative, Urine Glucose (UA) Normal, Urine Ketones 5 H, Urine Occult Blood 25 H, Urine Nitrite Negative, Urine Bilirubin Negative, Urine Urobilinogen Normal, Ur Leukocyte Esterase Negative, Urine RBC 0-5 SEEN, Urine WBC 0-5 SEEN, Ur Squamous Epith Cells 0-5 SEEN, Urine Bacteria 0 SEEN, Urine Mucus 0 SEEN 01/30/20 00:26: Lactic Acid 2.6 H* 01/30/20 00:53: MRSA (PCR) Negative 01/30/20 04:10: WBC 12.9 H, RBC 3.55 L, Hgb 10.4 L, Hct 32.6 L, MCV 91.8, MCH 29.3, MCHC 31.9 L, RDW Std Deviation 50.8 H, RDW Coeff of Isael 15.2 H, Plt Count 89 L, MPV 11.1, Immature Gran % (Auto) 0.200, Neut % (Auto) 85.6 H, Lymph % (Auto) 7.8 L, [place] % (Auto) 6.2, Eos % (Auto) 0.1, Baso % (Auto) 0.1, Absolute Neuts (auto) 11.0 H, Absolute Lymphs (auto) 1.00, Nucleated RBC % 0, Differential Comment SCANNED 01/30/20 04:10: Sodium 143, Potassium 4.0, Chloride 111 H, Carbon Dioxide 25.0, Anion Gap 7, BUN 17, Creatinine 0.90, Estim Creat Clear Calc 74.37, Est GFR (MDRD) Af Amer 106, Est GFR (MDRD) Non-Af 87, BUN/Creatinine Ratio 18.9, Glucose 128 H, Calcium 7.7 L Current Medications Acetaminophen (Tylenol) 650 mg PO Q4H PRN PRN PRN Reason: For fever/pain 1-10. Dextrose (D50w Syringe) 0 gm IV X1 PRN; Protocol PRN Reason: Hypoglycemia Glucagon () 1 mg IM .X1 PRN PRN Reason: Hypoglycemia Vancomycin IV Pharmacy to Dose (1 ea/ Sodium Chloride) 500 mls @ 250 mls/hr IV Q12 M[facility]; Protocol Piperacillin Sod/Tazobactam (Sod 3.375 gm/ Sodium Chloride) 50 mls @ 12.5 mls/hr IV Q8 M[facility] Last Admin: 01/30/20 05:19 Dose: 12.5 mls/hr Documented by: Sodium Chloride () 250 mls @ 15 mls/hr IV .[id number] PRN PRN Reason: Saline Flush Sodium Chloride () 250 mls @ 15 mls/hr IV .[id number] PRN PRN Reason: Additional IVPB Infusion Vancomycin HCl 1,250 mg/ (Sodium Chloride) 275 mls @ 167 mls/hr IV Q12H [facility] Norepinephrine Bitartrate 8 mg (/ Sodium Chloride) 250 mls @ 9.375 mls/hr CONT INF .[id number] COUNTS INCLUDE 234 BEDS AT THE [facility]; Protocol Last Titration: 01/30/20 07:00 Dose: 5 mcg/min, 9.4 mls/hr Documented by: Multivitamins/Minerals (Multivitamin With Minerals (Bkc)) 1 tablet PO DAILY@0800 COUNTS INCLUDE 234 BEDS AT THE [facility] Non-Formulary Medication (Super Beta Prostate) 2 tab PO BID [facility] Ondansetron HCl (Zofran) 4 mg IV Q8H PRN PRN PRN Reason: NAUSEA/VOMITING Rivaroxaban (Xarelto) 20 mg PO DAILY [facility] Sodium Chloride () 10 - 40 ml IV UD PRN PRN Reason: SALINE FLUSH Last Admin: 01/30/20 05:19 Dose: 10 ml Documented by: Clinical Impression(s) from Imaging Studies Chest X-Ray 01/29/20 20:10 IMPRESSION: Slightly prominent bronchopulmonary marking pattern of the lungs, appearing similar to the previous study. There is no evidence of jamie infiltrate, atelectasis, or pleural effusion. Degenerative changes of the thoracic spine. Electronically Signed: Tone Ibrahim MD at 20:44 EDT , Service support , Assessment/Plan Active and Suspected Problems BPH associated with nocturia (Acute) Septic shock (Acute) Sepsis (Acute) Severe sepsis (Acute) Fever, unknown origin (Acute) RECOMMENDATIONS: 1. Continue empiric antibiotics 2. Wean Levophed as tolerated 3. Obtain echocardiogram 4. Wean oxygen as tolerated 5. Cancel repeat COVID test if secondary diagnosis is found IMPRESSIONS: 1. Septic shock of unclear etiology Patient did present with fever and elevated lactic acid. Renal function a ppears to be doing okay at this time. Patient did progressively become hypotensive overnight requiring pressor therapy. Patient is on empiric antibiotics, but work-up thus far has been unremarkable. Await blood cultures. PRN Tylenol is appropriate. Viral work-up has been negative. Patient is not giving any symptomatology of COVID-19 outside of fever at this time. Patient is not having any respiratory or GI complaints. Will obtain an echocardiogram for possible cardiac etiology as patient does have a history of pacer/A. fib. No echo is available for review at this time. 2. History of A. fib/block status post pacemaker No baseline cardiac function is available in our computer. This would not account for patient's fever, but will obtain an echocardiogram for quantification and clarification of function. 3. BPH/advanced age/hemorrhoids Complicates care, management, recovery and prognosis. Patient does not require a Ward at this time as urine output has been appropriate. Patient is on empiric antibiotics. Patient did have some hemorrhoidal bleeding reported yesterday with some fall in hemoglobin. This is likely secondary to dilution as ongoing bleeding has not been reported. No indication for transfusion at this time. TIME: 32 minutes critical care time spent addressing patient's septic shock, ALidya leung, BPH, review of all data and collaboration with care team (7 AM to 8:30 AM) [id number]: [id number] Critical care first hour
--- NOTE | 2020-01-30 08:38 | ECHOD_ITS ---
Reason For Study: OTHER-severe sepsis Procedure This was a 2D Doppler, Color Flow transthoracic echocardiogram. Exam performed portable in ICU/CCU. Left Ventricle Normal LV size. Moderate global left ventricular systolic dysfunction. The estimated ejection fraction is 37 %. There is moderate global hypokinesis of the left ventricle. Apical wall motion abnormality may reflect pacemaker activation. Right Ventricle Normal RV size. Normal systolic function. Atria The left atrium is mildly enlarged. Normal right atrium. Mitral Valve Normal mitral valve. Mild-Moderate (1-2+) eccentric mitral valve insufficiency. Tricuspid Valve Normal tricuspid valve. Mild (1+) tricuspid valve insufficiency. Pulmonary artery systolic pressure is 34 mmHg. Aortic Valve Trisinus/trileaflet aortic valve. Mild focal aortic valve calcification. Pulmonic Valve Normal pulmonic valve. Great Vessels Normal aortic root. The pulmonary artery is normal size. Normal inferior vena cava. Pericardium/Pleural No pericardial effusion. MMode/2D Measurements & Calculations LVIDd: 5.7 cm IVSd: 1.1 cm Ao root diam: 3.0 cm LVIDs: 4.3 cm LVPWd: 1.1 cm RVDd: 3.5 cm FS: 25.7 % LAV(MOD-bp): 69.3 ml LA A4 area: 19.0 cm2 LA dimension(2D): 4.1 cm LAV(MOD-bp) Indexed: 33.7 ml/m2 LAV(MOD-sp2): 74.9 ml LAV(MOD-sp4): 58.3 ml RA A4 area: 14.8 cm2 Time Measurements MV dec time: 0.22 sec Doppler Measurements & Calculations MV E max jeremías: 113.8 cm/sec Lat Peak E' Jeremías: 4.9 cm/sec Med Peak E' Jeremías: 5.8 cm/sec MV A max jeremías: 133.2 cm/sec E/E' lat: 23.2 E/E' med: 19.6 MV E/A: 0.85 Ao V2 max: 158.8 cm/sec LV V1 max: 97.8 cm/sec MR max jeremías: 510.5 cm/sec Ao max P.1 mmHg LV V1 max P.8 mmHg MR max P.3 mmHg MR mean jeremías: 382.0 cm/sec MR mean P.6 mmHg MR VTI: 177.7 cm PA V2 max: 103.2 cm/sec TR max jeremías: 275.7 cm/sec TR max P.4 mmHg Interpretation Summary Normal LV size. Moderate global left ventricular systolic dysfunction. The estimated ejection fraction is 37 %. Mild-Moderate (1-2+) eccentric mitral valve insufficiency. Pulmonary artery systolic pressure is 34 mmHg. Ordering Physician: Mao Felder Referring Physician: Jada Castellanos Performed By: Meagan Taylor RDCS, RVT
[2020-01-30 09:17] LABS: Procalcitonin 0.18 ng/mL (0.00-0.09)
[2020-01-30] MEDS: Multivitamins,Ther W-Minerals Tablet 1 TABLET PO (12:12)
[2020-01-30] MEDS: Rivaroxaban 20 MG Tablet PO (12:13)
--- NOTE | 2020-01-30 12:20 | PN_ITS ---
Patient Problems: Active and Suspected Problems BPH associated with nocturia (Acute) Septic shock (Acute) Sepsis (Acute) Severe sepsis (Acute) Fever, unknown origin (Acute) Reason for Visit: septic shock Subjective: breathing better. coughing. Vitals/I&O's: Vital Signs Temp Pulse Resp BP Pulse Ox 37.1 C 70 20 H 114/51 L 100 01/30/20 08:00 01/30/20 10:00 01/30/20 10:00 01/30/20 10:00 01/30/20 10:00 Oxygen Flow Rate (L/min) 2 Oxygen Delivery Method Nasal Cannula Weight: 85.8 kg Body Mass Index (BMI) 26.4 Finger Stick Blood Glucose 120 Intake and Output for Last 24 Hours 01/28/20 01/29/20 01/30/20 23:59 23:59 23:59 Intake Total 1100 / 1100 2819.68 / 2819.68 Output Total 525 / 525 Balance 1100 / 1100 2294.68 / 2294.68 General: Alert, Cooperative, No apparent distress HEENT: Atraumatic, Normocephalic Oral: Moist Mucosa, No Gingival or Mucosal Lesions/ Ulcerations Neck: No Nodes, Trachea Midline Lungs: Diminished, - - crackles RLL. Cardiovascular: Regular rate, Regular Rhythm, Normal S1, Normal S2 Abdomen: Bowel Sounds Present, Soft, Non Tender, Non-Distended, No Hepato- splenomegaly Extremities: No edema, No Calf Tenderness Skin: No rashes, No breakdown Psych/Mental Status: Normal Affect, Appropriate Microbiology Past 72 Hours 01/30/20 00:15 Mucosa - Nose Respiratory Panel (PCR) - Final 01/29/20 10:27 Urine, Clean Catch Streptococcus pneumoniae Antigen (M - Final 01/29/20 10:27 Urine, Random Legionella Antigen - Final 01/29/20 19:02 Mucosa - Nasopharyngeal Coronavirus COVID-19 PCR - Final Laboratory Results 01/29/20 18:45: WBC 10.8, RBC 4.53 L, Hgb 13.0, Hct 41.4, MCV 91.4, MCH 28.7, MCHC 31.4 L, RDW Std Deviation 49.5 H, RDW Coeff of Isael 14.7 H, Plt Count 143 L, MPV 12.6 H, Immature Gran % (Auto) 0.600, Neut % (Auto) 88.9 H, Lymph % (Auto) 8.0 L, [place] % (Auto) 1.7, Eos % (Auto) 0.6, Baso % (Auto) 0.2, Absolute Neuts (a uto) 9.6 H, Absolute Lymphs (auto) 0.86, Nucleated RBC % 0 01/29/20 18:45: PT 15.5 H, INR 1.3, APTT 36.9 H 01/29/20 18:45: Sodium 139, Potassium 3.7, Chloride 105, Carbon Dioxide 30.0, Anion Gap 4 L, BUN 21 H, Creatinine 0.86, Estim Creat Clear Calc 77.83, Est GFR (MDRD) Af Amer 111, Est GFR (MDRD) Non-Af 92, BUN/Creatinine Ratio 24.4 H, Glucose 101, Calcium 9.3, Total Bilirubin 0.70, AST 24, ALT 28, Alkaline Phosphatase 97, Troponin I < 0.015, Total Protein 7.9, Albumin 4.2, Globulin 3.7, Albumin/Globulin Ratio 1.1 01/29/20 18:45: Lactic Acid 2.7 H* 01/29/20 18:45: Ferritin 482 H, Triglycerides 64 01/29/20 18:45: Procalcitonin 0.18 H 01/29/20 19:02: COVID-19 (HARITHA) Cancelled 01/29/20 22:27: Urine Color Yellow, Urine Clarity Clear, Urine pH 7.0, Ur Specific [place] 1.010, Urine Protein Negative, Urine Glucose (UA) Normal, Urine Ketones 5 H, Urine Occult Blood 25 H, Urine Nitrite Negative, Urine Bilirubin Negative, Urine Urobilinogen Normal, Ur Leukocyte Esterase Negative, Urine RBC 0-5 SEEN, Urine WBC 0-5 SEEN, Ur Squamous Epith Cells 0-5 SEEN, Urine Bacteria 0 SEEN, Urine Mucus 0 SEEN 01/30/20 00:26: Lactic Acid 2.6 H* 01/30/20 00:53: MRSA (PCR) Negative 01/30/20 04:10: WBC 12.9 H, RBC 3.55 L, Hgb 10.4 L, Hct 32.6 L, MCV 91.8, MCH 29.3, MCHC 31.9 L, RDW Std Deviation 50.8 H, RDW Coeff of Isael 15.2 H, Plt Count 89 L, MPV 11.1, Immature Gran % (Auto) 0.200, Neut % (Auto) 85.6 H, Lymph % (Auto) 7.8 L, [place] % (Auto) 6.2, Eos % (Auto) 0.1, Baso % (Auto) 0.1, Absolute Neuts (auto) 11.0 H, Absolute Lymphs (auto) 1.00, Nucleated RBC % 0, Differential Comment SCANNED 01/30/20 04:10: Sodium 143, Potassium 4.0, Chloride 111 H, Carbon Dioxide 25.0, Anion Gap 7, BUN 17, Creatinine 0.90, Estim Creat Clear Calc 74.37, Est GFR (MDRD) Af Amer 106, Est GFR (MDRD) Non-Af 87, BUN/Creatinine Ratio 18.9, Glucose 128 H, Calcium 7.7 L Current Medications Acetaminophen (Tylenol) 650 mg PO Q4H PRN PRN PRN Reason: For fever/pain 1-10. Dextrose (D50w Syringe) 0 gm IV X1 PRN; Protocol PRN Reason: Hypoglycemia Glucagon () 1 mg IM .X1 PRN PRN Reason: Hypoglycemia Piperacillin Sod/Tazobactam (Sod 3.375 gm/ Sodium Chloride) 50 mls @ 12.5 mls/hr IV Q8 [facility] Last Infusion: 01/30/20 09:19 Dose: Infused Documented by: Sodium Chloride () 250 mls @ 15 mls/hr IV .[id number] PRN PRN Reason: Saline Flush Sodium Chloride () 250 mls @ 15 mls/hr IV .[id number] PRN PRN Reason: Additional IVPB Infusion Vancomycin HCl 1,250 mg/ (Sodium Chloride) 275 mls @ 167 mls/hr IV Q12H [facility] Last Admin: 01/30/20 12:12 Dose: 167 mls/hr Documented by: Norepinephrine Bitartrate 8 mg (/ Sodium Chloride) 250 mls @ 9.375 mls/hr CONT INF .[id number] [facility]; Protocol Last Titration: 01/30/20 10:00 Dose: 5 mcg/min, 9.4 mls/hr Documented by: Vancomycin IV Pharmacy to Dose (1 ea/ Sodium Chloride) 500 mls @ 250 mls/hr IV PRN PRN; Protocol Multivitamins/Minerals (Multivitamin With Minerals (Bkc)) 1 tablet PO DAILY@0800 [facility] Last Admin: 01/30/20 12:12 Dose: 1 tablet Documented by: Non-Formulary Medication (Super Beta Prostate) 2 tab PO BID [facility] Last Admin: 01/30/20 09:28 Dose: 2 tab Documented by: Ondansetron HCl (Zofran) 4 mg IV Q8H PRN PRN PRN Reason: NAUSEA/VOMITING Rivaroxaban (Xarelto) 20 mg PO DAILY [facility] Last Admin: 01/30/20 12:13 Dose: 20 mg Documented by: Sodium Chloride () 10 - 40 ml IV UD PRN PRN Reason: SALINE FLUSH Last Admin: 01/30/20 05:19 Dose: 10 ml Documented by: STROKE Vital Signs/Narrative: Vital Signs Pulse Resp BP Pulse Ox 01/30/20 10:00 70 20 H 114/51 L 100 01/30/20 09:00 74 20 H 116/57 L 99 Medical Necessity - Tobacco Use Smoking Status: Never smoker Assessment/Plan All Active Problems BPH associated with nocturia (Acute) Septic shock (Acute) Sepsis (Acute) Severe sepsis (Acute) Fever, unknown origin (Acute) 1. septic shock * present on arrival * possible pneumonia * resp panel negative, strep antigen, legionella negative * COVID negative x 1, recheck ordered * continue vanc and pip/tazo for now 2. BPH * very concerned about being on his normal regimen for Super Beta Prostate * PRN straight cath if needed. 3. afib: * anticoagulated on rivaroxaban 4. VTE prophylaxis: low risk as already anticoagulated. Inpatient E&M: [id number] [facility] Hosp L2
[2020-01-30] MEDS: TITRATION PARAMETER CHANGE 1 EACH IV (21:07)
[2020-01-31] VITALS (42 sets, daily range): BP systolic 97–146; BP diastolic 38–90; PULSE 70–90; RESP 13–25; TEMP 36.6–37; O2SAT 93–100
[2020-01-31] MEDS: TITRATION PARAMETER CHANGE 1 EACH IV (00:07)
[2020-01-31 06:12] LABS: Absolute Lymphocyte Count 1.34 X10^3/uL (0.83-4.51); Absolute Neutrophil Count 3.6 X10^3/uL (2.0-7.7); Basophil# 0.02 X10^3/uL; Basophil% 0.3 % (0-1); Eosinophil# 0.09 X10^3/uL; Eosinophils% 1.5 % (0-5); Hematocrit 35.1 % (40-54); Hemoglobin 11.3 g/dL (13.0-16.5); Lymphocyte # 1.34 X10^3/ul (4.0); Lymphocyte % 22.6 % (19-41); Mean Corp Hgb Conc 32.2 g/dL (32-36); Mean Corpuscular Volume 90.2 fL (80-94); Mean Platelet Vol. 12.1 fl (6.2-12.0); Monocyte# 0.85 X10^3/uL; Monocyte% 14.3 % (0-10); NRBC Flagged by Analyzer 0 % (0-5); Neutrophil # 3.58 X10^3/uL (2.7-7.7); Neutrophil % 60.5 % (47-70); POSITIVE COUNT YES; Platelet Count 97 K/mm3 (150-450); Red Blood Count 3.89 M/mm3 (4.6-6.2); White Blood Count 5.9 K/mm3 (4.4-11.0)
[2020-01-31 06:34] LABS: Anion Gap 6 (5-15); BUN 13 mg/dL (7-18); BUN/Creat Ratio 15.7 RATIO (10-20); Calcium,Total 8.2 mg/dL (8.5-10.1); Chloride 109 mmol/L (98-107); Creatinine, Serum 0.83 mg/dL (0.70-1.30); EST Glomerular Filtration Rate 96 mL/min (>60); Est Glom Filt Rate - Afr Amer 116 mL/min (>60); Estimated Creatinine Clearance 80.64 ml/min; Glucose 118 mg/dL (74-106); Potassium 3.8 mmol/L (3.5-5.1); Sodium Level 141 mmol/L (136-145)
--- NOTE | 2020-01-31 06:46 | RAD_ITS ---
STUDY: X-RAY CHEST REASON FOR EXAM: Male, 74 years old. Possible pneumonia TECHNIQUE: PA and lateral views of the chest. COMPARISON: Comparison is made with prior study dated January 29, 2020. FINDINGS: EKG electrodes are seen. Stable mild elevation of the right hemidiaphragm. Blunting of the posterior costophrenic angles. Normal size heart. A left-sided dual-chamber pacemaker is seen. Normal mediastinum and [place]. Normal visualized pulmonary arteries. There is atherosclerotic calcification of the aortic arch with tortuosity. There are diffuse degenerative changes of the visualized thoracic spine. Normal visualized ribs, clavicles, and shoulders. There is no demonstrated abnormality of the visualized soft tissue structures of the upper abdomen. RAD/Chest PA and Lateral IMPRESSION: There is blunting of the costophrenic angles posteriorly Electronically Signed: Rodrigo Zamudio, at 12:24 EDT , Service support ,
--- NOTE | 2020-01-31 06:50 | PN_ITS ---
Subjective: Patient did okay overnight. Patient has been weaned to room air and was taken on respiratory precautions secondary to a second negative COVID test. Patient feels subjectively improved compared to yesterday, but is still requiring minimal Levophed to maintain appropriate perfusion. Patient is not reporting any diarrhea or respiratory complaints at this time. Objective: Echo has not been completed at this time. General: Alert, Oriented x3, Cooperative, No apparent distress, - - No convers ational dyspnea. HEENT: Atraumatic, PERRLA, EOMI, Normocephalic, - - No scleral injection or icterus. Oral: Moist Mucosa, No Gingival or Mucosal Lesions/ Ulcerations Neck: Supple, No JVD, No Nodes, Trachea Midline Lungs: No rhonchi, No wheeze, No rales, Diminished, - - Symmetric expansion. No dullness to percussion. Cardiovascular: Regular rate, Regular Rhythm, Normal S1, Normal S2, No murmurs, No rub noted, No Gallop Abdomen: Bowel Sounds Present, Soft, Non Tender, Non-Distended Extremities: No clubbing, No cyanosis, No edema, Capillary Refill Less than 3 Seconds Skin: No rashes, No breakdown Musculoskeletal: No Tenderness to Palpation of Joints or Extremities Lymphatic: No Cervical, Supraclavicular, or Inguinal Adenopathy Neurological: Cranial nerves II-XII grossly intact, Neuro grossly intact, Motor Exam 5/5 strength throughout Psych/Mental Status: Alert and oriented to time, place, person, mood and affect Vital Signs Temp Pulse Resp BP Pulse Ox 36.7 C 70 17 108/76 98 01/31/20 05:00 01/31/20 06:00 01/31/20 06:00 01/31/20 06:00 01/31/20 06:00 Oxygen Flow Rate (L/min) 2 Oxygen Delivery Method Room Air Weight: 87 kg Body Mass Index (BMI) 26.4 Finger Stick Blood Glucose 120 Intake and Output for Last 24 Hours 01/29/20 01/30/20 01/31/20 23:59 23:59 23:59 Intake Total 1100 / 1100 4577.47 / 4699.82 600.37 / 600.37 Output Total 525 / 750 925 / 925 Balance 1100 / 1100 4052.47 / 3949.82 -324.63 / -324.63 Labs (Last 48 Hours) 01/29/20 01/29/20 01/29/20 18:45 18:45 18:45 WBC 10.8 RBC 4.53 L Hgb 13.0 Hct 41.4 MCV 91.4 MCH 28.7 MCHC 31.4 L RDW Std Deviation 49.5 H RDW Coeff of Isael 14.7 H Plt Count 143 L MPV 12.6 H Immature Gran % (Auto) 0.600 Neut % (Auto) 88.9 H Lymph % (Auto) 8.0 L [place] % (Auto) 1.7 Eos % (Auto) 0.6 Baso % (Auto) 0.2 Absolute Neuts (auto) 9.6 H Absolute Lymphs (auto) 0.86 Nucleated RBC % 0 Differential Comment PT 15.5 H INR 1.3 APTT 36.9 H Sodium 139 Potassium 3.7 Chloride 105 Carbon Dioxide 30.0 Anion Gap 4 L BUN 21 H Creatinine 0.86 Estim Creat Clear Calc 77.83 Est GFR (MDRD) Af Amer 111 Est GFR (MDRD) Non-Af 92 BUN/Creatinine Ratio 24.4 H Glucose 101 Lactic Acid Calcium 9.3 Ferritin Total Bilirubin 0.70 AST 24 ALT 28 Alkaline Phosphatase 97 Troponin I < 0.015 Total Protein 7.9 Albumin 4.2 Globulin 3.7 Albumin/Globulin Ratio 1.1 Triglycerides Procalcitonin Urine Color Urine Clarity Urine pH Ur Specific [place] Urine Protein Urine Glucose (UA) Urine Ketones Urine Occult Blood Urine Nitrite Urine Bilirubin Urine Urobilinogen Ur Leukocyte Esterase Urine RBC Urine WBC Ur Squamous Epith Cells Urine Bacteria Urine Mucus COVID-19 (HARITHA) MRSA (PCR) 01/29/20 01/29/20 01/29/20 18:45 18:45 18:45 WBC RBC Hgb Hct MCV MCH MCHC RDW Std Deviation RDW Coeff of Isael Plt Count MPV Immature Gran % (Auto) Neut % (Auto) Lymph % (Auto) [place] % (Auto) Eos % (Auto) Baso % (Auto) Absolute Neuts (auto) Absolute Lymphs (auto) Nucleated RBC % Differential Comment PT INR APTT Sodium Potassium Chloride Carbon Dioxide Anion Gap BUN Creatinine Estim Creat Clear Calc Est GFR (MDRD) Af Amer Est GFR (MDRD) Non-Af BUN/Creatinine Ratio Glucose Lactic Acid 2.7 H* Calcium Ferritin 482 H Total Bilirubin AST ALT Alkaline Phosphatase Troponin I Total Protein Albumin Globulin Albumin/Globulin Ratio Triglycerides 64 Procalcitonin 0.18 H Urine Color Urine Clarity Urine pH Ur Specific [place] Urine Protein Urine Glucose (UA) Urine Ketones Urine Occult Blood Urine Nitrite Urine Bilirubin Urine Urobilinogen Ur Leukocyte Esterase Urine RBC Urine WBC Ur Squamous Epith Cells Urine Bacteria Urine Mucus COVID-19 (HARITHA) MRSA (PCR) 01/29/20 01/29/20 01/30/20 19:02 22:27 00:26 WBC RBC Hgb Hct MCV MCH MCHC RDW Std Deviation RDW Coeff of Isael Plt Count MPV Immature Gran % (Auto) Neut % (Auto) Lymph % (Auto) [place] % (Auto) Eos % (Auto) Baso % (Auto) Absolute Neuts (auto) Absolute Lymphs (auto) Nucleated RBC % Differential Comment PT INR APTT Sodium Potassium Chloride Carbon Dioxide Anion Gap BUN Creatinine Estim Creat Clear Calc Est GFR (MDRD) Af Amer Est GFR (MDRD) Non-Af BUN/Creatinine Ratio Glucose Lactic Acid 2.6 H* Calcium Ferritin Total Bilirubin AST ALT Alkaline Phosphatase Troponin I Total Protein Albumin Globulin Albumin/Globulin Ratio Triglycerides Procalcitonin Urine Color Yellow Urine Clarity Clear Urine pH 7.0 Ur Specific [place] 1.010 Urine Protein Negative Urine Glucose (UA) Normal Urine Ketones 5 H Urine Occult Blood 25 H Urine Nitrite Negative Urine Bilirubin Negative Urine Urobilinogen Normal Ur Leukocyte Esterase Negative Urine RBC 0-5 SEEN Urine WBC 0-5 SEEN Ur Squamous Epith Cells 0-5 SEEN Urine Bacteria 0 SEEN Urine Mucus 0 SEEN COVID-19 (HARITHA) Cancelled MRSA (PCR) 01/30/20 01/30/20 01/30/20 00:53 04:10 04:10 WBC 12.9 H RBC 3.55 L Hgb 10.4 L Hct 32.6 L MCV 91.8 MCH 29.3 MCHC 31.9 L RDW Std Deviation 50.8 H RDW Coeff of Isael 15.2 H Plt Count 89 L MPV 11.1 Immature Gran % (Auto) 0.200 Neut % (Auto) 85.6 H Lymph % (Auto) 7.8 L [place] % (Auto) 6.2 Eos % (Auto) 0.1 Baso % (Auto) 0.1 Absolute Neuts (auto) 11.0 H Absolute Lymphs (auto) 1.00 Nucleated RBC % 0 Differential Comment SCANNED PT INR APTT Sodium 143 Potassium 4.0 Chloride 111 H Carbon Dioxide 25.0 Anion Gap 7 BUN 17 Creatinine 0.90 Estim Creat Clear Calc 74.37 Est GFR (MDRD) Af Amer 106 Est GFR (MDRD) Non-Af 87 BUN/Creatinine Ratio 18.9 Glucose 128 H Lactic Acid Calcium 7.7 L Ferritin Total Bilirubin AST ALT Alkaline Phosphatase Troponin I Total Protein Albumin Globulin Albumin/Globulin Ratio Triglycerides Procalcitonin Urine Color Urine Clarity Urine pH Ur Specific [place] Urine Protein Urine Glucose (UA) Urine Ketones Urine Occult Blood Urine Nitrite Urine Bilirubin Urine Urobilinogen Ur Leukocyte Esterase Urine RBC Urine WBC Ur Squamous Epith Cells Urine Bacteria Urine Mucus COVID-19 (HARITHA) MRSA (PCR) Negative 01/31/20 01/31/20 06:00 06:00 WBC 5.9 RBC 3.89 L Hgb 11.3 L Hct 35.1 L MCV 90.2 MCH 29.0 MCHC 32.2 RDW Std Deviation 50.0 H RDW Coeff of Isael 15.0 H Plt Count 97 L MPV 12.1 H Immature Gran % (Auto) 0.800 Neut % (Auto) 60.5 Lymph % (Auto) 22.6 [place] % (Auto) 14.3 H Eos % (Auto) 1.5 Baso % (Auto) 0.3 Absolute Neuts (auto) 3.6 Absolute Lymphs (auto) 1.34 Nucleated RBC % 0 Differential Comment PT INR APTT Sodium 141 Potassium 3.8 Chloride 109 H Carbon Dioxide 26.0 Anion Gap 6 BUN 13 Creatinine 0.83 Estim Creat Clear Calc 80.64 Est GFR (MDRD) Af Amer 116 Est GFR (MDRD) Non-Af 96 BUN/Creatinine Ratio 15.7 Glucose 118 H Lactic Acid Calcium 8.2 L Ferritin Total Bilirubin AST ALT Alkaline Phosphatase Troponin I Total Protein Albumin Globulin Albumin/Globulin Ratio Triglycerides Procalcitonin Urine Color Urine Clarity Urine pH Ur Specific [place] Urine Protein Urine Glucose (UA) Urine Ketones Urine Occult Blood Urine Nitrite Urine Bilirubin Urine Urobilinogen Ur Leukocyte Esterase Urine RBC Urine WBC Ur Squamous Epith Cells Urine Bacteria Urine Mucus COVID-19 (HARITHA) MRSA (PCR) Microbiology 01/30/20 19:50 Mucosa - Nasopharyngeal Coronavirus COVID-19 PCR - Final 01/30/20 00:15 Mucosa - Nose Respiratory Panel (PCR) - Final 01/29/20 10:27 Urine, Clean Catch Streptococcus pneumoniae Antigen (M - Final 01/29/20 10:27 Urine, Random Legionella Antigen - Final 01/29/20 19:02 Mucosa - Nasopharyngeal Coronavirus COVID-19 PCR - Final Medical Necessity - Tobacco Use Smoking Status: Never smoker Assessment/Plan All Active Problems BPH associated with nocturia (Acute) Septic shock (Acute) Sepsis (Acute) Severe sepsis (Acute) Fever, unknown origin (Acute) RECOMMENDATIONS: 1. Continue empiric antibiotics. Discontinue vancomycin 2. Wean Levophed as tolerated 3. Await echocardiogram 4. Wean oxygen as tolerated 5. Await culture results IMPRESSIONS: 1. Septic shock of unclear etiology Patient did present with fever and elevated lactic acid. Renal function appears to be doing okay at this time. Patient appears to be improving with empiric antibiotics. Nasal MRSA was negative, so will discontinue vancomycin. Patient did have significant improvement in leukocytosis, so bacterial infection would be suspected. Cultures have been negative thus far. We will continue Zosyn for another 24 hours and then likely narrow antibiotic spectrum. COVID testing has been negative x2. Precautions have been discontinued. 2. History of A. fib/block status post pacemaker No baseline cardiac function is available in our computer. This would not account for patient's fever, but will obtain an echocardiogram for quantification and clarification of function. Await echocardiogram. 3. BPH/advanced age/hemorrhoids/thrombocytopenia Complicates care, management, recovery and prognosis. Patient does not require a Wrad at this time as urine output has been appropriate. Patient is on empiric antibiotics. Patient did have some hemorrhoidal bleeding reported prior to admission with some fall in hemoglobin. No indication for transfusion at this time. Hemoglobin is improved today. TIME: 33 minutes critical care time spent addressing patient's septic shock, A. fib, BPH, review of all data and collaboration with care team (6 AM to 6:55 AM) [phone] [id number] Critical care first hour
[2020-01-31] MEDS: Rivaroxaban 20 MG Tablet PO (09:24)
[2020-01-31] MEDS: Multivitamins,Ther W-Minerals Tablet 1 TABLET PO (09:24)
--- NOTE | 2020-01-31 11:42 | PN_ITS ---
Patient Problems: Active and Suspected Problems BPH associated with nocturia (Acute) Septic shock (Acute) Sepsis (Acute) Severe sepsis (Acute) Fever, unknown origin (Acute) Reason for Visit: septic shock Subjective: Feels well. No shortness of breath. Vitals/I&O's: Vital Signs Temp Pulse Resp BP Pulse Ox 36.7 C 75 20 H 138/55 H 99 01/31/20 05:00 01/31/20 10:53 01/31/20 10:53 01/31/20 10:53 01/31/20 10:53 Oxygen Flow Rate (L/min) 2 Oxygen Delivery Method Room Air Weight: 87 kg Body Mass Index (BMI) 26.4 Finger Stick Blood Glucose 120 Intake and Output for Last 24 Hours 01/29/20 01/30/20 01/31/20 23:59 23:59 23:59 Intake Total 1100 / 1100 4577.47 / 4699.82 668.93 / 668.93 Output Total 525 / 750 925 / 925 Balance 1100 / 1100 4052.47 / 3949.82 -256.07 / -256.07 General: Alert, No apparent distress HEENT: Atraumatic, Normocephalic Oral: Moist Mucosa, No Gingival or Mucosal Lesions/ Ulcerations Neck: No Nodes, Trachea Midline Lungs: Clear to auscultation, Normal air movement, No rhonchi, No wheeze Cardiovascular: Regular rate, Regular Rhythm, Normal S1, Normal S2, No murmurs Abdomen: Bowel Sounds Present, Soft, Non Tender, Non-Distended, No Hepato- splenomegaly Extremities: No edema, No Calf Tenderness Psych/Mental Status: Normal Affect, Appropriate Microbiology Past 72 Hours 01/29/20 22:27 Urine, Clean Catch Urine Culture - Final Mixed Gram Positive Organisms 01/30/20 19:50 Mucosa - Nasopharyngeal Coronavirus COVID-19 PCR - Final 01/30/20 00:15 Mucosa - Nose Respiratory Panel (PCR) - Final 01/29/20 10:27 Urine, Clean Catch Streptococcus pneumoniae Antigen (M - Final 01/29/20 10:27 Urine, Random Legionella Antigen - Final 01/29/20 19:02 Mucosa - Nasopharyngeal Coronavirus COVID-19 PCR - Final Laboratory Results 01/31/20 06:00: WBC 5.9, RBC 3.89 L, Hgb 11.3 L, Hct 35.1 L, MCV 90.2, MCH 29.0, MCHC 32.2, RDW Std Deviation 50.0 H, RDW Coeff of Isael 15.0 H, Plt Count 97 L, MPV 12.1 H, Immature Gran % (Auto) 0.800, Neut % (Auto) 60.5, Lymph % (Auto) 22.6, [place] % (Auto) 14.3 H, Eos % (Auto) 1.5, Baso % (Auto) 0.3, Absolute Neuts (auto) 3.6, Absolute Lymphs (auto) 1.34, Nucleated RBC % 0 01/31/20 06:00: Sodium 141, Potassium 3.8, Chloride 109 H, Carbon Dioxide 26.0, Anion Gap 6, BUN 13, Creatinine 0.83, Estim Creat Clear Calc 80.64, Est GFR (MDRD) Af Amer 116, Est GFR (MDRD) Non-Af 96, BUN/Creatinine Ratio 15.7, Glucose 118 H, Calcium 8.2 L Current Medications Acetaminophen (Tylenol) 650 mg PO Q4H PRN PRN PRN Reason: For fever/pain 1-10. Dextrose (D50w Syringe) 0 gm IV X1 PRN; Protocol PRN Reason: Hypoglycemia Glucagon () 1 mg IM .X1 PRN PRN Reason: Hypoglycemia Piperacillin Sod/Tazobactam (Sod 3.375 gm/ Sodium Chloride) 50 mls @ 12.5 mls/hr IV Q8 [facility] Last Infusion: 01/31/20 09:34 Dose: Infused Documented by: Sodium Chloride () 250 mls @ 15 mls/hr IV .[id number] PRN PRN Reason: Saline Flush Sodium Chloride () 250 mls @ 15 mls/hr IV .[id number] PRN PRN Reason: Additional IVPB Infusion Norepinephrine Bitartrate 8 mg (/ Sodium Chloride) 250 mls @ 9.375 mls/hr CONT INF .[id number] [facility]; Protocol Last Admin: 01/31/20 11:25 Dose: Not Given Documented by: Multivitamins/Minerals (Multivitamin With Minerals (Bkc)) 1 tablet PO DAILY@0800 [facility] Last Admin: 01/31/20 09:24 Dose: 1 tablet Documented by: Non-Formulary Medication (Super Beta Prostate) 2 tab PO BID [facility] Last Admin: 01/31/20 09:24 Dose: 2 tab Documented by: Ondansetron HCl (Zofran) 4 mg IV Q8H PRN PRN PRN Reason: NAUSEA/VOMITING Rivaroxaban (Xarelto) 20 mg PO DAILY [facility] Last Admin: 01/31/20 09:24 Dose: 20 mg Documented by: Sodium Chloride () 10 - 40 ml IV UD PRN PRN Reason: SALINE FLUSH Last Admin: 01/30/20 05:19 Dose: 10 ml Documented by: STROKE Vital Signs/Narrative: Vital Signs Pulse Resp BP Pulse Ox 01/31/20 10:53 75 20 H 138/55 H 99 01/31/20 09:00 84 20 H 136/52 H 99 01/31/20 08:00 87 19 H 97/82 H 96 Medical Necessity - Tobacco Use Smoking Status: Never smoker Assessment/Plan All Active Problems BPH associated with nocturia (Acute) Septic shock (Acute) Sepsis (Acute) Severe sepsis (Acute) Fever, unknown origin (Acute) 1. septic shock * present on arrival * possible pneumonia * resp panel negative, strep antigen, legionella negative * COVID negative x 2 * continue vanc and pip/tazo for now * BCx negative so far * on norephi 5 mcg/m 2. BPH * very concerned about being on his normal regimen for Super Beta Prostate * PRN straight cath if needed. 3. afib: * anticoagulated on rivaroxaban 4. VTE prophylaxis: low risk as already anticoagulated. Inpatient E&M: [id number] [facility] L2
--- NOTE | 2020-01-31 11:46 | CASEMGMT ---
RN CM Assessment Note Presentation: chills, rigor Diagnosis: sepsis PMH: colon cancer with colectomy, radiation, perm pacemaker, DM, BPH Introduced role of CM and purpose of RN CM assessment for care coordination and discharge planning. Pt is awake, alert and able to participate in assessment. Pt comfortably sitting in chair. Demographics, PCP and Pharmacy verified. Pt states he is very independent @ home and plans to return home when able. PCP: Dr. Castellanos Specialists: Dr. Swartz, cardiology @ [facility] (placed pacemaker) Insurance: [facility] Preferred Pharmacy: [facility] Prescription Benefit: yes LNOK : , Shani Evangelista Living Arrangements: Lives independently with in split level home. Pt denies difficulty navigating stairs at home. States he is independent with ADL's and denies care needs Transportation: drives DME: cane, walker @ home. States only uses cane intermittently when needed. HHC: none SNF: none Patient DC goals: Home DC PLAN: Home. No needs identified @ this time. CM available for dc planning coordination. RN CM advised patient to contact for any concerns/needs that may arise. Karen LATIFN RN ACM
[2020-01-31] MEDS: VIT C/E/ZN/COPPR/LUTEIN/ZEAXAN 1 EACH CAPSULE PO (20:37)
[2020-02-01] VITALS (20 sets, daily range): BP systolic 95–133; BP diastolic 44–81; PULSE 74–79; RESP 13–23; TEMP 36.2–36.8; O2SAT 13–100
[2020-02-01 04:46] LABS: Absolute Lymphocyte Count 1.51 X10^3/uL (0.83-4.51); Absolute Neutrophil Count 3.4 X10^3/uL (2.0-7.7); Basophil# 0.03 X10^3/uL; Basophil% 0.5 % (0-1); Eosinophil# 0.11 X10^3/uL; Eosinophils% 1.9 % (0-5); Hematocrit 35.9 % (40-54); Hemoglobin 11.5 g/dL (13.0-16.5); Lymphocyte # 1.51 X10^3/ul (4.0); Lymphocyte % 25.5 % (19-41); Mean Corpuscular Hgb 28.5 pg (27.0-32.0); Mean Corpuscular Volume 89.1 fL (80-94); Mean Platelet Vol. 12.6 fl (6.2-12.0); Monocyte# 0.86 X10^3/uL; Monocyte% 14.5 % (0-10); NRBC Flagged by Analyzer 0 % (0-5); Neutrophil # 3.36 X10^3/uL (2.7-7.7); Neutrophil % 56.8 % (47-70); Platelet Count 126 K/mm3 (150-450); RBC Distribution Width CV 14.7 % (11.6-14.6); RBC Distribution Width SD 48.4 fl (35.1-43.9); Red Blood Count 4.03 M/mm3 (4.6-6.2); White Blood Count 5.9 K/mm3 (4.4-11.0)
[2020-02-01 05:02] LABS: Anion Gap 6 (5-15); BUN 15 mg/dL (7-18); BUN/Creat Ratio 17.3 RATIO (10-20); Calcium,Total 8.5 mg/dL (8.5-10.1); Chloride 107 mmol/L (98-107); Creatinine, Serum 0.87 mg/dL (0.70-1.30); EST Glomerular Filtration Rate 91 mL/min (>60); Est Glom Filt Rate - Afr Amer 110 mL/min (>60); Estimated Creatinine Clearance 76.93 ml/min; Glucose 115 mg/dL (74-106); Potassium 3.8 mmol/L (3.5-5.1); Sodium Level 140 mmol/L (136-145)
--- NOTE | 2020-02-01 07:35 | PCM.PN.INT ---
Subjective: Patient did well overnight. No acute issues were reported. Patient states that he is feeling closer to baseline. Patient did not have any acute issues and was able to be taken off of Levophed yesterday afternoon. Patient did report some transient dizziness with initial standing, but this did not persist. Objective: Echocardiogram showed moderate LV systolic dysfunction with an EF of 37%. Pulmonary artery pressure was elevated at 34 mmHg. General: Alert, Oriented x3, Cooperative, No apparent distress, Well developed, Well nourished, - - No conversational dyspnea. HEENT: Atraumatic, PERRLA, EOMI, Normocephalic, - - No scleral icterus or injection noted Oral: Moist Mucosa, No Gingival or Mucosal Lesions/ Ulcerations Neck: Supple, No JVD, No Nodes, Trachea Midline Lungs: Clear to auscultation, Normal air movement, No rhonchi, No wheeze, No rales, - - Symmetric expansion. No dullness to percussion. Cardiovascular: Regular rate, Regular Rhythm, Normal S1, Normal S2, No murmurs, No rub noted, No Gallop Abdomen: Bowel Sounds Present, Soft, Non Tender, Non-Distended Extremities: No clubbing, No cyanosis, No edema, Capillary Refill Less than 3 Seconds Skin: No rashes, No breakdown Musculoskeletal: No Tenderness to Palpation of Joints or Extremities Lymphatic: No Cervical, Supraclavicular, or Inguinal Adenopathy Neurological: Cranial nerves II-XII grossly intact, Neuro grossly intact, Motor Exam 5/5 strength throughout Psych/Mental Status: Alert and oriented to time, place, person, mood and affect Vital Signs Temp Pulse Resp BP Pulse Ox 36.6 C 75 17 95/50 L 96 02/01/20 04:00 02/01/20 06:00 02/01/20 06:00 02/01/20 06:00 02/01/20 06:00 Oxygen Flow Rate (L/min) 2 Oxygen Delivery Method Room Air Weight: 84.5 kg Body Mass Index (BMI) 26.4 Finger Stick Blood Glucose 120 Intake and Output for Last 24 Hours 01/30/20 01/31/20 02/01/20 23:59 23:59 23:59 Intake Total 4577.47 / 4699.82 1478.93 / 1478.93 250 / 250 Output Total 525 / 750 1675 / 1675 700 / 700 Balance 4052.47 / 3949.82 -196.07 / -196.07 -450 / -450 Labs (Last 48 Hours) 01/29/20 01/31/20 01/31/20 18:45 06:00 06:00 WBC 5.9 RBC 3.89 L Hgb 11.3 L Hct 35.1 L MCV 90.2 MCH 29.0 MCHC 32.2 RDW Std Deviation 50.0 H RDW Coeff of Isael 15.0 H Plt Count 97 L MPV 12.1 H Immature Gran % (Auto) 0.800 Neut % (Auto) 60.5 Lymph % (Auto) 22.6 [place] % (Auto) 14.3 H Eos % (Auto) 1.5 Baso % (Auto) 0.3 Absolute Neuts (auto) 3.6 Absolute Lymphs (auto) 1.34 Nucleated RBC % 0 Sodium 141 Potassium 3.8 Chloride 109 H Carbon Dioxide 26.0 Anion Gap 6 BUN 13 Creatinine 0.83 Estim Creat Clear Calc 80.64 Est GFR (MDRD) Af Amer 116 Est GFR (MDRD) Non-Af 96 BUN/Creatinine Ratio 15.7 Glucose 118 H Calcium 8.2 L Procalcitonin 0.18 H 02/01/20 02/01/20 04:35 04:35 WBC 5.9 RBC 4.03 L Hgb 11.5 L Hct 35.9 L MCV 89.1 MCH 28.5 MCHC 32.0 RDW Std Deviation 48.4 H RDW Coeff of Isael 14.7 H Plt Count 126 L MPV 12.6 H Immature Gran % (Auto) 0.800 Neut % (Auto) 56.8 Lymph % (Auto) 25.5 [place] % (Auto) 14.5 H Eos % (Auto) 1.9 Baso % (Auto) 0.5 Absolute Neuts (auto) 3.4 Absolute Lymphs (auto) 1.51 Nucleated RBC % 0 Sodium 140 Potassium 3.8 Chloride 107 Carbon Dioxide 27.0 Anion Gap 6 BUN 15 Creatinine 0.87 Estim Creat Clear Calc 76.93 Est GFR (MDRD) Af Amer 110 Est GFR (MDRD) Non-Af 91 BUN/Creatinine Ratio 17.3 Glucose 115 H Calcium 8.5 Procalcitonin Microbiology 01/29/20 22:27 Urine, Clean Catch Urine Culture - Final Mixed Gram Positive Organisms 05/25/20 19:50 Mucosa - Nasopharyngeal Coronavirus COVID-19 PCR - Final 01/30/20 00:15 Mucosa - Nose Respiratory Panel (PCR) - Final Clinical Impression(s) from Imaging Studies Chest X-Ray 01/31/20 06:46 IMPRESSION: There is blunting of the costophrenic angles posteriorly Electronically Signed: Rodrigo Zamudio, at 12:24 EDT , Service support , Medical Necessity - Tobacco Use Smoking Status: Never smoker Assessment/Plan All Active Problems BPH associated with nocturia (Acute) Septic shock (Acute) Sepsis (Acute) Severe sepsis (Acute) Fever, unknown origin (Acute) RECOMMENDATIONS: 1. Consider narrowing of antibiotic spectrum 2. Check orthostatics if blood pressure becomes marginal 3. Consider cardiology evaluation, possibly as an outpatient 4. Walking oximetry prior to discharge 5. Await culture results 6. Okay to leave the intensive care unit from my perspective IMPRESSIONS: 1. Septic shock of unclear etiology Patient did present with fever and elevated lactic acid. Renal function appears to be doing okay at this time. Patient appears to be improving with empiric antibiotics. Cultures have been negative thus far. However, patient is off of pressors and afebrile. Clinical suspicion for a urinary source, but culture was not definitive. Likely okay to transition to p.o. antibiotics from my perspective. Okay to leave the intensive care unit 2. History of A. fib/block status post pacemaker/chronic systolic congestive heart failure No baseline cardiac function is available in our computer. Patient appears to have poor insight into his current cardiac function. Patient should likely follow with cardiology for optimization. Patient may have a lower blood pressure at baseline secondary to function. Patient was on no medications for systolic congestive heart failure on presentation. 3. BPH/advanced age/hemorrhoids/thrombocytopenia Complicates care, management, recovery and prognosis. Patient does not require a Ward at this time as urine output has been appropriate. Patient is on empiric antibiotics. Patient did have some hemorrhoidal bleeding reported prior to admission with some fall in hemoglobin, but there is been no recurrence. No indication for transfusion at this time. Inpatient E&M: [id number] [facility] [place] L3
[2020-02-01] MEDS: Rivaroxaban 20 MG Tablet PO (07:53)
[2020-02-01] MEDS: Multivitamins,Ther W-Minerals Tablet 1 TABLET PO (07:53)
[2020-02-01] MEDS: VIT C/E/ZN/COPPR/LUTEIN/ZEAXAN 1 EACH CAPSULE PO ×2 (07:55→20:08)
[2020-02-01] MEDS: Cefdinir 300 MG Capsule PO ×2 (13:33→20:55)
--- NOTE | 2020-02-01 13:52 | PCM.PN.HOSP ---
Patient Problems: Active and Suspected Problems BPH associated with nocturia (Acute) Septic shock (Acute) Sepsis (Acute) Severe sepsis (Acute) Fever, unknown origin (Acute) Reason for Visit: septic shock Subjective: Constipated since Thursday. Breathing well. Wants a laxative. Vitals/I&O's: Vital Signs Temp Pulse Resp BP Pulse Ox 36.6 C 75 19 H 126/62 H 95 02/01/20 12:00 02/01/20 13:00 02/01/20 13:00 02/01/20 13:00 02/01/20 13:00 Oxygen Flow Rate (L/min) 2 Oxygen Delivery Method Room Air Weight: 84.5 kg Body Mass Index (BMI) 26.4 Finger Stick Blood Glucose 120 Intake and Output for Last 24 Hours 01/30/20 01/31/20 02/01/20 23:59 23:59 23:59 Intake Total 4577.47 / 4699.82 1478.93 / 1478.93 500 / 500 Output Total 525 / 750 1675 / 1675 700 / 700 Balance 4052.47 / 3949.82 -196.07 / -196.07 -200 / -200 General: Alert, No apparent distress HEENT: Atraumatic, Normocephalic Oral: Moist Mucosa, No Gingival or Mucosal Lesions/ Ulcerations Neck: No Nodes, Thyroid Normal Size and Texture Lungs: Clear to auscultation, Normal air movement, No rhonchi, No wheeze, No rales Cardiovascular: Regular rate, Regular Rhythm, Normal S1, Normal S2, No murmurs Abdomen: Bowel Sounds Present, Soft, Non Tender, Non-Distended, No Hepato-splenomegaly Extremities: No edema, No Calf Tenderness Psych/Mental Status: Normal Affect, Appropriate Microbiology Past 72 Hours 01/29/20 18:52 Blood Culture (Wb) - Anticubital Left Blood Culture - Preliminary 01/29/20 18:45 Blood Culture (Wb) - Anticubital Right Blood Culture - Preliminary No growth in 48 hours. 01/29/20 22:27 Urine, Clean Catch Urine Culture - Final Mixed Gram Positive Organisms 01/30/20 19:50 Mucosa - Nasopharyngeal Coronavirus COVID-19 PCR - Final 01/30/20 00:15 Mucosa - Nose Respiratory Panel (PCR) - Final 01/29/20 10:27 Urine, Clean Catch Streptococcus pneumoniae Antigen (M - Final 01/29/20 10:27 Urine, Random Legionella Antigen - Final 01/29/20 19:02 Mucosa - Nasopharyngeal Coronavirus COVID-19 PCR - Final Laboratory Results 02/01/20 04:35: WBC 5.9, RBC 4.03 L, Hgb 11.5 L, Hct 35.9 L, MCV 89.1, MCH 28.5, MCHC 32.0, RDW Std Deviation 48.4 H, RDW Coeff of Isael 14.7 H, Plt Count 126 L, MPV 12.6 H, Immature Gran % (Auto) 0.800, Neut % (Auto) 56.8, Lymph % (Auto) 25.5, Ashley % (Auto) 14.5 H, Eos % (Auto) 1.9, Baso % (Auto) 0.5, Absolute Neuts (auto) 3.4, Absolute Lymphs (auto) 1.51, Nucleated RBC % 0 02/01/20 04:35: Sodium 140, Potassium 3.8, Chloride 107, Carbon Dioxide 27.0, Anion Gap 6, BUN 15, Creatinine 0.87, Estim Creat Clear Calc 76.93, Est GFR (MDRD) Af Amer 110, Est GFR (MDRD) Non-Af 91, BUN/Creatinine Ratio 17.3, Glucose 115 H, Calcium 8.5 Current Medications Acetaminophen (Tylenol) 650 mg PO Q4H PRN PRN PRN Reason: For fever/pain 1-10. Cefdinir (Omnicef [Equiv]) 300 mg PO BID [facility] Stop: 02/04/20 22:01 Last Admin: 02/01/20 13:33 Dose: 300 mg Documented by: Dextrose (D50w Syringe) 0 gm IV X1 PRN; Protocol PRN Reason: Hypoglycemia Glucagon () 1 mg IM .X1 PRN PRN Reason: Hypoglycemia Sodium Chloride () 250 mls @ 15 mls/hr IV .[id number] PRN PRN Reason: Saline Flush Sodium Chloride () 250 mls @ 15 mls/hr IV .[id number] PRN PRN Reason: Additional IVPB Infusion Multivitamins/Minerals (Multivitamin With Minerals (Bkc)) 1 tablet PO DAILY@0800 [facility] Last Admin: 02/01/20 07:53 Dose: 1 tablet Documented by: Non-Formulary Medication (Super Beta Prostate) 2 tab PO BID [facility] Last Admin: 02/01/20 07:53 Dose: 1 tab Documented by: Ondansetron HCl (Zofran) 4 mg IV Q8H PRN PRN PRN Reason: NAUSEA/VOMITING Rivaroxaban (Xarelto) 20 mg PO DAILY [facility] Last Admin: 02/01/20 07:53 Dose: 20 mg Documented by: Sodium Chloride () 10 - 40 ml IV UD PRN PRN Reason: SALINE FLUSH Last Admin: 01/30/20 05:19 Dose: 10 ml Documented by: STROKE Vital Signs/Narrative: Vital Signs Temp Pulse Resp BP BP Pulse Ox 02/01/20 13:00 75 19 H 126/62 H 95 02/01/20 12:00 36.6 C 76 18 133/81 H 133/81 H 13 02/01/20 11:00 75 23 H 114/49 L 95 02/01/20 10:00 77 18 129/47 H 95 Medical Necessity - Tobacco Use Smoking Status: Never smoker Assessment/Plan All Active Problems BPH associated with nocturia (Acute) Septic shock (Acute) Sepsis (Acute) Severe sepsis (Acute) Fever, unknown origin (Acute) 1. septic shock present on arrival possible pneumonia resp panel negative, strep antigen, legionella negative COVID negative x 2 on Cefdinir BCx negative so far norepi off 2. BPH very concerned about being on his normal regimen for Super Beta Prostate PRN straight cath if needed. 3. afib: anticoagulated on rivaroxaban has had what sounds like a MAZE procedure in the past s/p pacemaker 4. Cardiomyopathy EF 37% unclear if new or chronic sees cardiology at [place], will check records If new, then may need to consult cardiology 5. Constipatoin give dulcolax and start daily Miralax take Miralax occasionally at home 6. VTE prophylaxis: low risk as already anticoagulated. Inpatient E&M: [id number] [facility] Hosp L2
--- NOTE | 2020-02-01 14:18 | NURSING ---
report called to [facility] for transfer to room 104 per wheelchair with belongings pt own meds
[2020-02-01] MEDS: Polyethylene Glycol 3350 17 GM PACKET PO (15:09)
[2020-02-01] MEDS: Bisacodyl 5 MG Tablet 10 MG PO (15:09)
[2020-02-02 03:00] VITALS: BP 94/74; PULSE 84; RESP 18; TEMP 36.3; O2SAT 99
[2020-02-02 03:23] VITALS: PULSE 80
[2020-02-02 07:14] VITALS: O2SAT 95
[2020-02-02 07:38] VITALS: BP 118/56; PULSE 83; RESP 16; TEMP 36.4; O2SAT 97
[2020-02-02 07:45] VITALS: PULSE 99
[2020-02-02] MEDS: Cefdinir 300 MG Capsule PO (09:19)
[2020-02-02] MEDS: VIT C/E/ZN/COPPR/LUTEIN/ZEAXAN 1 EACH CAPSULE PO (09:19)
[2020-02-02] MEDS: Rivaroxaban 20 MG Tablet PO (09:20)
[2020-02-02] MEDS: Multivitamins,Ther W-Minerals Tablet 1 TABLET PO (09:20)
[2020-02-02] MEDS: Polyethylene Glycol 3350 17 GM PACKET PO (09:21)
--- NOTE | 2020-02-02 11:17 | DCINST_ITS ---
- Discharge Diagnoses Current Active Problems: Current Active and Chronic Problems BPH associated with nocturia (Acute) Sepsis (Acute) Severe sepsis (Acute) Fever, unknown origin (Acute) You will use the following diet at home:: Calorie/Carbohydrate Controlled (specify 1200, 1400, etc) - 1800 rui / day, Cardiac Your food should be the consistency of: Regular Your liquids should be the consistency of: Regular/Thin Discharge Activity: Return to Normal Activity Allergies/Adverse Reactions: Allergies adhesive tape Allergy (Verified 01/29/20 18:43) Rash bacitracin [From Neosporin ([id number])] Allergy (Verified 01/29/20 18:43) Other bacitracin zinc [From Neosporin ([id number])] Allergy (Verified 01/29/20 18:43) Other neomycin sulfate [From Neosporin ([id number])] Allergy (Verified 01/29/20 18:43) Other polymyxin B [From Neosporin ([id number]-[id number]-[id number])] Allergy (Verified 01/29/20 18:43) Other polymyxin B sulfate [From Polysporin] Allergy (Verified 01/29/20 18:43) Rash Medications to take at Discharge Super Beta Prostate 2 tab PO BID 02/25/16 Vit A/Vit C/Vit E/Zinc/Copper [Preservision Areds Softgel] 1 ea PO BID 06/28/19 Rivaroxaban [Xarelto] 20 mg PO DAILY 01/29/20 Carvedilol [Coreg] 6.25 mg PO BID #60 tablet 02/02/20 Cefdinir [Omnicef [equiv]] 300 mg PO BID #8 capsule 02/02/20 Lisinopril 5 mg PO DAILY #30 tablet 02/02/20 Vit C/E/Zn/Coppr/Lutein/Zeaxan [Preservision Areds 2 Softgel] 1 each PO BID capsule 02/02/20 The following prescriptions were given: Carvedilol [Coreg] 6.25 mg PO BID #60 tablet Lisinopril 5 mg PO DAILY #30 tablet Cefdinir [Omnicef [equiv]] 300 mg PO BID #8 capsule Primary Care Physician: Jada Castellanos MD [Primary Care Provider] - Please follow up with your Primary Care Physician in: 1-2 weeks Test Results: Test results from this visit will be discussed in further detail at your follow- up appointment, if applicable. Please Follow Up With: [facility] When: Call today to set up follow up as they direct Proposed Discharge Date: 02/02/20
--- NOTE | 2020-02-02 13:16 | PCM.PN.INT ---
Subjective: Patient did well overnight. No acute issues were reported. Patient has been saturating well on room air. No orthostatic type symptoms have been reported. General: Alert, Oriented x3, Cooperative, No apparent distress, Well developed, Well nourished, - - Speaking in full sentences HEENT: Atraumatic, PERRLA, EOMI, Normocephalic, - - No scleral icterus or injection noted Oral: Moist Mucosa, No Gingival or Mucosal Lesions/ Ulcerations Neck: Supple, No JVD, No Nodes, Trachea Midline Lungs: Clear to auscultation, Normal air movement, No rhonchi, No wheeze, No rales Cardiovascular: Normal S1, Normal S2, No murmurs, Irregular Rate, No rub noted, No Gallop Abdomen: Bowel Sounds Present, Soft, Non Tender, Non-Distended Extremities: No clubbing, No cyanosis, No edema, Capillary Refill Less than 3 Seconds Skin: No rashes, No breakdown Musculoskeletal: No Tenderness to Palpation of Joints or Extremities Lymphatic: No Cervical, Supraclavicular, or Inguinal Adenopathy Neurological: Cranial nerves II-XII grossly intact, Neuro grossly intact, Motor Exam 5/5 strength throughout Psych/Mental Status: Alert and oriented to time, place, person, mood and affect Vital Signs Temp Pulse Resp BP Pulse Ox 36.4 C L 99 16 118/56 L 97 02/02/20 07:38 02/02/20 07:45 02/02/20 07:38 02/02/20 07:38 02/02/20 07:38 Oxygen Flow Rate (L/min) 2 Oxygen Delivery Method Room Air Weight: 84.5 kg Body Mass Index (BMI) 26.4 Finger Stick Blood Glucose 120 Intake and Output for Last 24 Hours 01/31/20 02/01/20 02/02/20 23:59 23:59 23:59 Intake Total 1478.93 / 1478.93 500 / 750 500 / 500 Output Total 1675 / 1675 700 / 700 Balance -196.07 / -196.07 -200 / 50 500 / 500 Labs (Last 48 Hours) 02/01/20 02/01/20 04:35 04:35 WBC 5.9 RBC 4.03 L Hgb 11.5 L Hct 35.9 L MCV 89.1 MCH 28.5 MCHC 32.0 RDW Std Deviation 48.4 H RDW Coeff of Isael 14.7 H Plt Count 126 L MPV 12.6 H Immature Gran % (Auto) 0.800 Neut % (Auto) 56.8 Lymph % (Auto) 25.5 [place] % (Auto) 14.5 H Eos % (Auto) 1.9 Baso % (Auto) 0.5 Absolute Neuts (auto) 3.4 Absolute Lymphs (auto) 1.51 Nucleated RBC % 0 Sodium 140 Potassium 3.8 Chloride 107 Carbon Dioxide 27.0 Anion Gap 6 BUN 15 Creatinine 0.87 Estim Creat Clear Calc 76.93 Est GFR (MDRD) Af Amer 110 Est GFR (MDRD) Non-Af 91 BUN/Creatinine Ratio 17.3 Glucose 115 H Calcium 8.5 Microbiology 01/29/20 18:52 Blood Culture (Wb) - Anticubital Left Blood Culture - Preliminary 01/29/20 18:45 Blood Culture (Wb) - Anticubital Right Blood Culture - Preliminary No growth in 48 hours. Medical Necessity - Tobacco Use Smoking Status: Never smoker Assessment/Plan All Active Problems BPH associated with nocturia (Acute) Septic shock (Acute) Sepsis (Acute) Severe sepsis (Acute) Fever, unknown origin (Acute) RECOMMENDATIONS: 1. Complete a total of 7 days of antibiotics 2. Walking oximetry prior to discharge 3. Consider cardiology evaluation, possibly as an outpatient 4. Okay to discharge from a pulmonary perspective. No outpatient follow-up would be indicated IMPRESSIONS: 1. Septic shock of unclear etiology Patient did present with fever and elevated lactic acid. Renal function appears to be doing okay at this time. Patient appears to be improving with empiric antibiotics. Cultures have been aggressive thus far. However, patient is off of pressors and afebrile. Clinical suspicion for a urinary source, but culture was not definitive. Patient tolerated transition to p.o. antibiotics. Recommend completing a 7-day course. No indication for outpatient follow-up with pulmonary. 2. History of A. fib/block status post pacemaker/chronic systolic congestive heart failure No baseline cardiac function is available in our computer. Patient appears to have poor insight into his current cardiac function. Patient should likely follow with cardiology for optimization. Patient may have a lower blood pressure at baseline secondary to function. Patient was on no medications for systolic congestive heart failure on presentation. 3. BPH/advanced age/hemorrhoids/thrombocytopenia Complicates care, management, recovery and prognosis. Patient does not require a Ward at this time as urine output has been appropriate. Patient is on empiric antibiotics. Patient did have some hemorrhoidal bleeding reported prior to admission with some fall in hemoglobin, but there is been no recurrence. No indication for transfusion at this time. Inpatient E&M: [id number] [facility] Hosp L2
--- NOTE | 2020-02-02 14:45 | DS.PCM_ITS ---
<TraAmmon - Last Filed: 02/02/20 14:45> Discharge Date and Diagnosis Date of Admission: 01/29/20 Date of Discharge: 02/02/20 - Primary Discharge Diagnosis Acute Problems: Septic shock Afib Hx Pacemaker Hx cardiomyopathy, unclear type BPH DMt2 Hx colon cancer in remission. - Secondary Discharge Diagnosis Chronic Problems: Chronic Problems Diabetes (Chronic) Pacemaker (Chronic) Hospital Course and Treatment Imaging Results: RAD/Chest 1 View (Portable) IMPRESSION: Slightly prominent bronchopulmonary marking pattern of the lungs, appearing similar to the previous study. There is no evidence of jamie infiltrate, atelectasis, or pleural effusion. Degenerative changes of the thoracic spine. 2D Echo: Interpretation Summary Normal LV size. Moderate global left ventricular systolic dysfunction. The estimated ejection fraction is 37 %. Mild-Moderate (1-2+) eccentric mitral valve insufficiency. Pulmonary artery systolic pressure is 34 mmHg. RAD/Chest PA and Lateral IMPRESSION: There is blunting of the costophrenic angles posteriorly Consults: [place] - Pulm/Crit Care Operations: None, herniorrhaphy - Laparoscopic ventral incisional and umbilical hernia repair with mesh Procedures: 2-D Echocardiogram Summary of Care Provided: Hospital Course: The patient is a 74 year old M with pmhx as above who presented to the ER with c/o chills and rigors starting the day of presentation. In the ER he had a neg CXR, LA elevated at 2.7, Temp of 100.9. He was admitted to the ICU and placed on zosyn. Overnight he became hypotensive and was placed on norepinephrine drip. Vanc was added. He was felt to have an underlying pneumonia. covid was negative. resp panel was negative. blood cultures were neg, urine antigens were negative. Urine showed mixed gram pos organisms. An echo was obtained and showed a reduced EF at 37%. His fpga engineer at [place] was contacted and recommended adding lisinopril and coreg. He will follow up with them as an outaptient as directed. He was transitioned to omnicef and transitioned to the PCU. He did well with no further issues. He was complete 7 days of oral abx with cefdinir. He will need follow up with his PCP in 1-2 weeks. He was discharged home in stable condition. This patient was seen by Ammon Dutta PA-C under the supervision of Dr. Henderson.[] - Physical Exam Vitals/I&O's: Vital Signs Temp Pulse Resp BP Pulse Ox 97.6 F L 99 16 118/56 L 97 02/02/20 07:38 02/02/20 07:45 02/02/20 07:38 02/02/20 07:38 02/02/20 07:38 Oxygen Flow Rate (L/min) 2 Oxygen Delivery Method Room Air Weight: 186 lb 4.65 oz Body Mass Index (BMI) 26.4 Finger Stick Blood Glucose 120 Intake and Output for Last 24 Hours 01/31/20 02/01/20 02/02/20 23:59 23:59 23:59 Intake Total 1478.93 / 1478.93 500 / 750 500 / 500 Output Total 1675 / 1675 700 / 700 Balance -196.07 / -196.07 -200 / 50 500 / 500 General: Alert, Oriented x3, Cooperative HEENT: Atraumatic, PERRLA, EOMI, Normocephalic Neck: Supple, No JVD, Negative Carotid Bruits Lungs: Clear to auscultation, Normal air movement Cardiovascular: Regular rate, No murmurs Abdomen: Bowel Sounds Present, Soft, Non Tender Extremities: No edema, Capillary Refill Less than 3 Seconds Skin: No rashes, No breakdown Musculoskeletal: No Tenderness to Palpation of Joints or Extremities Neurological: Cranial nerves II-XII grossly intact Psych/Mental Status: Normal Affect, Appropriate, Alert and oriented to time, place, person, mood and affect Microbiology Past 72 Hours 01/29/20 18:52 Blood Culture (Wb) - Anticubital Left Blood Culture - Preliminary 01/29/20 18:45 Blood Culture (Wb) - Anticubital Right Blood Culture - Preliminary No growth in 48 hours. 01/29/20 22:27 Urine, Clean Catch Urine Culture - Final Mixed Gram Positive Organisms 01/30/20 19:50 Mucosa - Nasopharyngeal Coronavirus COVID-19 PCR - Final Discharge Diet: Low fat/ Low Cholesterol, 1800 Calorie Control Diet, 2000 mg Sodium Diet Discharge Activity: Return to Normal Activity Home Medications: Medications to take at Discharge Super Beta Prostate 2 tab PO BID 02/25/16 Vit A/Vit C/Vit E/Zinc/Copper [Preservision Areds Softgel] 1 ea PO BID 10/22/19 Rivaroxaban [Xarelto] 20 mg PO DAILY 01/29/20 Carvedilol [Coreg] 6.25 mg PO BID #60 tab 02/02/20 Cefdinir [Omnicef [equiv]] 300 mg PO BID #8 cap 02/02/20 Lisinopril 5 mg PO DAILY #30 tab 02/02/20 Vit C/E/Zn/Coppr/Lutein/Zeaxan [Preservision Areds 2 Softgel] 1 ea PO BID cap 02/02/20 Following Prescrptions Were Given to Patient: Carvedilol [Coreg] 6.25 mg PO BID #60 tab Transmission Status: Received by [facility]30 Lisinopril 5 mg PO DAILY #30 tab Transmission Status: Received by [facility] Cefdinir [Omnicef [equiv]] 300 mg PO BID #8 cap Transmission Status: Received by [facility] Primary Care Physician: Jada Castellanos MD [Primary Care Provider] - Please follow up with your Primary Care Physician in: 1-2 weeks Please Follow Up With: [facility] When: Call today to set up follow up as they direct Please Follow Up With: Jada Castellanos MD Disposition: Home Minutes spent on discharge:: 35 Patient Condition:: Stable Medical Necessity - Tobacco Use Smoking Status: Never smoker Meaningful Use Info Meaningful Use Diagnoses (Choose all that apply): None applicable <Talon Henderson - Last Filed: 02/02/20 15:17> Discharge Date and Diagnosis - Secondary Discharge Diagnosis Chronic Problems: Chronic Problems Diabetes (Chronic) Pacemaker (Chronic) Hospital Course and Treatment Operations: None Procedures: 2-D Echocardiogram Summary of Care Provided: Patient seen and examined independently. Data reviewed. I agree with the above note by the physician product development assistant. 1. septic shock * present on arrival * possible pneumonia * resp panel negative, strep antigen, legionella negative * COVID negative x 2 * on Cefdinir * BCx negative so far * norepi off 2. BPH * very concerned about being on his normal regimen for Super Beta Prostate * PRN straight cath if needed. 3. afib: * anticoagulated on rivaroxaban * has had what sounds like a MAZE procedure in the past * s/p pacemaker 4. Cardiomyopathy * EF 37% * unclear if new or chronic * sees cardiology at [place], will check records * If new, then may need to consult cardiology * Spoke with Dr. Gotti's (pt's fpga engineer) about echocardiogram. I told her i would start lisinopril and carvedilol, she said she would have someone call to schedule an appt for the pt for next week. She requested a fax of the echocardiogram to their office. 5. Constipatoin * give dulcolax and start daily Miralax * take Miralax occasionally at home [] - Physical Exam Vitals/I&O's: Vital Signs Temp Pulse Resp BP Pulse Ox 36.4 C L 99 16 118/56 L 97 02/02/20 07:38 02/02/20 07:45 02/02/20 07:38 02/02/20 07:38 02/02/20 07:38 Oxygen Flow Rate (L/min) 2 Oxygen Delivery Method Room Air Weight: 84.5 kg Body Mass Index (BMI) 26.4 Finger Stick Blood Glucose 120 Intake and Output for Last 24 Hours 01/31/20 02/01/20 02/02/20 23:59 23:59 23:59 Intake Total 1478.93 / 1478.93 500 / 750 500 / 500 Output Total 1675 / 1675 700 / 700 Balance -196.07 / -196.07 -200 / 50 500 / 500 General: Alert, Cooperative HEENT: Atraumatic, Normocephalic Lungs: Clear to auscultation, Normal air movement, No rhonchi, No wheeze Cardiovascular: Regular rate, No murmurs Abdomen: Bowel Sounds Present, Soft, Non Tender, Non-Distended Psych/Mental Status: Normal Affect, Appropriate Microbiology Past 72 Hours 01/29/20 18:52 Blood Culture (Wb) - Anticubital Left Blood Culture - Preliminary 01/29/20 18:45 Blood Culture (Wb) - Anticubital Right Blood Culture - Preliminary No growth in 48 hours. 01/29/20 22:27 Urine, Clean Catch Urine Culture - Final Mixed Gram Positive Organisms 01/30/20 19:50 Mucosa - Nasopharyngeal Coronavirus COVID-19 PCR - Final Discharge Diet: Low fat/ Low Cholesterol, 1800 Calorie Control Diet, 2000 mg Sodium Diet Discharge Activity: Return to Normal Activity Disposition: Home Minutes spent on discharge:: 35 Patient Condition:: Stable Medical Necessity - Tobacco Use Smoking Status: Never smoker Inpatient E&M: [id number] [facility] Hosp
--- NOTE | 2020-02-03 15:28 | CASEMGMT ---
BEVERLEY RIVERO Discharge Follow-Up Phone Call. Lace: 12 Strata: 3 Discharge Date: 02/02/20 Adm Dx: Severe Sepsis Attempted discharge follow-up phone call. No answer. VM message left for pt to return call if he has any needs/concerns/questions. Phone number provided for call-back if desired. Chelsea HUSTON RN CM
== END 2020-02-02 13:40 | disposition home or self-care (01) | DRG 871 ==
LOC: ED 23:25 → ICU 01-30 03:43 → PCU 02-01 17:00
PROVIDERS: Internal Medicine Critical Care Medicine; Admitting Provider Hospitalist; Emergency Provider Emergency Medicine; PCP Internal Medicine
DX: A41.9 Sepsis, unspecified organism (principal); R65.21 Severe sepsis with septic shock; I42.9 Cardiomyopathy, unspecified; I50.22 Chronic systolic (congestive) heart failure; R71.0 Precipitous drop in hematocrit; I48.91 Unspecified atrial fibrillation; N40.1 Benign prostatic hyperplasia with lower urinary tract symptoms; R35.1 Nocturia; K64.9 Unspecified hemorrhoids; D69.6 Thrombocytopenia, unspecified; E11.9 Type 2 diabetes mellitus without complications; Z85.038 Personal history of other malignant neoplasm of large intestine; Z95.0 Presence of cardiac pacemaker; Z79.01 Long term (current) use of anticoagulants; Z82.3 Family history of stroke; Z90.49 Acquired absence of other specified parts of digestive tract; K59.00 Constipation, unspecified
CPT/HCPCS: 71045; 71046; 80048; 80053; 81001; 82728; 83605; 84145; 84478; 84484; 85025; 85610; 85730; 87040; 87077; 87086; 87088; 87449; 87633; 87635; 87641; 93005; 93306; 94762; 96361; 96365; 97162; 97166; 97802; 99285; G2023; J7030; J7040; J7050; A4216; U0004

== ENCOUNTER 2021-09-10 07:07 | Day surgery (SDC) | payer MEDICARE, SELFPAY ==
[2021-09-10] VITALS (7 sets, daily range): BP systolic 91–120; BP diastolic 50–74; PULSE 70–84; RESP 16–18; TEMP 35.9–36.2; O2SAT 97–99; BMI 27.3
--- NOTE | 2021-09-10 | COLBX_PTH ---
PATIENT: OLAYINKA LICONA LOC: EN U#:[id number] AGE/SX: 76/M ROOM: RE09/10/[address]: Dr. Edmundo Winslow MD : 1945 BED: DIS: 09/10/2021 SPEC #: [id number] RECD: 09/10/21 11:11 STATUS: ALDO MATTHEWSKian #: [id number] RDUDY: 09/10/21 00:[address]: Edmundo Winslow DEPT: SURGICAL PATHOLOGY RECD BY: Farzad Butler ENTERED: 09/10/21 11:12 SP TYPE: COLON BX OTHR DR: Dr. Jada Castellanos MD Tissues: Sigmoid colon biopsy Procedures: Surgery Specimen Level IV HEADER OPERATION: Colonoscopy (MAC) PRE-OP DIAGNOSIS: History of malignant neoplasm of large intestine TISSUE SUBMITTED: Distal sigmoid polyp biopsy MICROSCOPIC DIAGNOSIS Distal sigmoid polyp, biopsy: Hyperplastic polyp. SJ:lc 09/11/2021 MICROSCOPIC DESCRIPTION Slides are reviewed. GROSS DESCRIPTION Received in fixative is one container labeled with the patient's name and designated distal sigmoid polyp biopsy. The specimen consists of two irregular fragments of light zapata soft tissue that in aggregate measure 0.6 x 0.6 x 0.1 cm. The specimen is totally submitted in one cassette. / AM:lc 09/10/21 TC:1 CPT: 15873
[2021-09-10] MEDS: Lactated Ringers 1,000 ML 15 ML IV (07:40)
[2021-09-10 07:46] LABS: Bedside Glucose 140 mg/dL (70-110)
--- NOTE | 2021-09-10 07:53 | HP.PCM_ITS ---
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 Food Required: No Is patient in pain?: No Allergies adhesive tape Allergy (Verified 06/20/21 08:12) Rash bacitracin [From Neosporin ([id number])] Allergy (Verified 06/20/21 08:12) Other bacitracin zinc [From Neosporin (mrk-cqs-[id number])] Allergy (Verified 06/20/21 08:12) Other neomycin sulfate [From Neosporin (ysf-fpc-ktlsm)] Allergy (Verified 06/20/21 08:12) Other polymyxin B [From Neosporin (udv-ahk-xhblt)] Allergy (Verified 06/20/21 08:12) Other polymyxin B sulfate [From Polysporin] Allergy (Verified 06/20/21 08:12) Rash Medications Super Beta Prostate 2 tab PO BID 02/25/16 [History Confirmed 06/20/21] vitamins A,C,Z-kdto-ldcelt 1 ea PO BID 06/28/19 [History Confirmed 06/20/21] rivaroxaban 20 mg PO DAILY 01/29/20 [History Confirmed 06/20/21] carvedilol 6.25 mg PO BID #60 tab 02/02/20 [Rx Confirmed 06/20/21] vit C,W-Wj-pwptp-lutein-zeaxan 1 ea PO BID cap 02/02/20 [Rx Confirmed 06/20/21] lisinopril 5 mg tablet 2.5 mg PO DAILY tab 06/20/21 [History] PFSH Medical History (Updated 06/20/21 @ 08:[address] Edmundo Winslow MD) BPH associated with nocturia Diabetes Fever, unknown origin Fever, unknown origin Heart disease Pacemaker Sepsis Septic shock Severe sepsis Surgical History (Updated 06/20/21 @ 08:16 by Precious Samuels) Hx laparoscopic cholecystectomy S/P cardiac pacemaker procedure S/P skin cancer resection S/P tonsillectomy S/P TURP Social History (Updated 06/20/21 @ 08:16 by Precious Samuels) Smoking Status: Never smoker alcohol intake: never HPI HPI HPI: OLAYINKA LICONA, is a 76 M who presents to the office today for surgical consultation regarding colonoscopy. The patient is referred by his primary care physician Dr. Jada Castellanos. His most recent endoscopy was January 04, 2016. He is on Xarelto and has been provided instructions he may stop that 1 day prior to surgery. He has a personal history of colon cancer. He Dr. Church is done some toe surgery for him within the past year. This went without complication. The patient denies abdominal pain bright red blood per rectum or melena. He is enjoying a good quality of life. Most recent colonoscopy on him was January 04, 2016. He was having right lower quadrant pain at that time. Work-up for recurrent colon cancer was negative. Colonoscopy demonstrated patent ileocolonic anastomosis. Diverticular disease of the sigmoid. Follow-up exam at 5 years recommended. His previous laparoscopic right colectomy was August 26, 2006. ROS General General: Yes colon cancer; No weight change, appetite, fatigue, breast cancer or weakness HEENT HEENT: No difficulty swallowing, eye injury, eye surgery, swollen glands or hoarseness Endo Endocrine: Yes diabetes mellitus; No thyroid disease, thyroid cancer, Hair loss, heat intolerance or cold intolerance Skin Skin: No rash or changing moles Breast Breast: No left breast lump, right breast lump, nipple discharge, breast pain, abnormal mammogram, abnormal US or breast enlargement Musc Musculoskeletal: No back problems, arthritis, rheumatoid arthritis, gout or joint pain Cardio Cardiovascular: Yes pacemaker and heart disease; No murmur, atrial fibrillation, high blood pressure, heart attack, heart stent, palpitations, shortness of breat with exertion or chest pain Psych Psychiatric: No depression, anxiety or hearing voices Resp Respiratory: No shortness of breath, No sleep apnea, No cough, No COPD, No asthma, No emphysema and No wheezing Gastro Gastrointestinal: No abdominal pain, No nausea or vomiting, No diarrhea, No constipation, No blood in stool, No acid reflux, No hemorrhoids, No ulcers, No gallbladder problem and No black,tarry stools Daren Hematologic: Yes blood thinners, No blood disorders, No bleeding, No anemia and No blood clots Neuro Neurologic: No system reviewed and no additional complaints, except as documented, No as per HPI, No abnormal gait, No abnormal hearing, No abnormal movements, No abnormal speech, No behavioral changes, No burning sensations, No confusion, No convulsions, No disequilibrium, No dizziness, No localized weakness, No frequent falls, No headache(s), No lack of coordination, No loss of vision, No memory loss, No numbness, No other visual disturbances, No radicular pain, No restless legs, No sensory deficit, No syncope, No tingling, No tremor(s), No weakness and No other Exam Const General: cooperative, healthy appearing and comfortable Nutritional Appearance: average body habitus [facility] Head: normal to inspection Eyes General: appearance normal, both eyes and all related structures Resp Effort & Inspection: normal respiratory effort Auscultation: clear to auscultation bilaterally Cardio Rate: regular rate Rhythm: regular rhythm GI Palpation: soft and no hepatosplenomegaly Musc Cervical Spine: normal cervical lordosis Skin General: no rashes or lesions noted Neuro General: patient alert and patient awake Extrem General: no calf tenderness Psych Appearance: grossly normal Assessment and Plan Assessment and Plan (1) Personal history of malignant neoplasm of large intestine: Status: Acute Plan - Dr. Edmundo Winslow MD: I recommended the patient a colonoscopy with possible biopsy or polypectomy as indicated. We will have him hold his Xarelto 1 to 2 days ahead of time. That will be what he is comfortable with. I recommend monitoring anesthesia care as the patient has a pacemaker in place. He is aware of technique, benefit, risk and alternatives. He has had an opportunity ask and have questions answered. In addition we discussed COVID-19 and vaccination. He has not yet been vaccinated. I did do recommend that he further consider that as a preventive health measure. I appreciate the opportunity of assisting with surgical care. We will schedule procedure at his discretion Copy: Dr. Jada Winslow M.D., F.A.C.S. I have re-examined the patient. There are no clinical changes since date of exam.
--- NOTE | 2021-09-10 08:25 | OP.COLON_ITS ---
Patient Name: Quinn Evangelista Procedure Date: 09/10/2021 7:57 AM Date of : 1945 Age: 76 Procedure: Colonoscopy Indications: High risk colon cancer surveillance: Personal history of colon cancer Providers: Edmundo Winslow MD Medicines: See the Anesthesia note for documentation of the administered medications Patient Profile: Last Colonoscopy: December 2015. Complications: No immediate complications. Procedure: Pre-Anesthesia Assessment: - Prior to the procedure, a History and Physical was performed, and patient medications and allergies were reviewed. The patient's tolerance of previous anesthesia was also reviewed. The risks and benefits of the procedure and the sedation options and risks were discussed with the patient. All questions were answered, and informed consent was obtained. Prior Anticoagulants: The patient has taken no previous anticoagulant or antiplatelet agents. ASA Grade Assessment: II - A patient with mild systemic disease. After reviewing the risks and benefits, the patient was deemed in satisfactory condition to undergo the procedure. After I obtained informed consent, the scope was passed under direct vision. Throughout the procedure, the patient's blood pressure, pulse, and oxygen saturations were monitored continuously. The pediatric colonoscope was introduced through the anus and advanced to the ileocolonic anastomosis. The colonoscopy was performed without difficulty. The patient tolerated the procedure well. The quality of the bowel preparation was good. Ileocolonic anastomosis were photographed. Scope In: 8:04:07 AM Scope Withdrawal Time 0 hours 6 minutes 54 seconds Scope Out: 8:16:39 AM Total Procedure Duration Time 0 hours 12 minutes 32 seconds Findings: Hemorrhoids were found on perianal exam. Multiple diverticula were found in the sigmoid colon and descending colon. There was evidence of a prior functional end-to-end ileo-colonic anastomosis in the proximal transverse colon. This was patent. A 3 mm polyp was found in the distal sigmoid colon. The polyp was sessile. The polyp was removed with a cold biopsy forceps. Resection and retrieval were complete. Impression: - Hemorrhoids found on perianal exam. - Diverticulosis in the sigmoid colon and in the descending colon. - Patent functional end-to-end ileo-colonic anastomosis. - One 3 mm polyp in the distal sigmoid colon, removed with a cold biopsy forceps. Resected and retrieved. Recommendation: - Await pathology results. - Repeat colonoscopy in 5 years for surveillance. - Telephone my office for pathology results in 1 week. - Continue present medications. Procedure Code(s): --- Professional --- 78475, Colonoscopy, flexible; with biopsy, single or multiple Diagnosis Code(s): --- Professional --- Z85.038, Personal history of other malignant neoplasm of large intestine K64.9, Unspecified hemorrhoids Z98.0, Intestinal bypass and anastomosis status D12.5, Benign neoplasm of sigmoid colon K57.30, Diverticulosis of large intestine without perforation or abscess without bleeding CPT copyright 2017 [employer]. All rights reserved. The codes documented in this report are preliminary and upon information coder review may be revised to meet current compliance requirements. Edmundo Winslow MD 09/10/2021 8:24:35 AM This report has been signed electronically. Number of Addenda: 0 Note Initiated On: 09/10/2021 7:57 AM
--- NOTE | 2021-09-10 08:25 | OP.CCLET_ITS ---
09/10/2021 Jada Castellanos [address] [place] [address] Re : Colonoscopy procedure for Quinn Evangelista Dear Dr. Castellanos This procedure was performed on Friday, September 10, 2021. My impressions and recommendations are as follows: Impressions : - Hemorrhoids found on perianal exam. - Diverticulosis in the sigmoid colon and in the descending colon. - Patent functional end-to-end ileo-colonic anastomosis. - One 3 mm polyp in the distal sigmoid colon, removed with a cold biopsy forceps. Resected and retrieved. Recommendations : - Await pathology results. - Repeat colonoscopy in 5 years for surveillance. - Telephone my office for pathology results in 1 week. - Continue present medications. My findings are described in the full procedure note, which is enclosed. If I can be of further assistance, please feel free to contact me at Doctor phone number(s): Work: . Sincerely, Edmundo Winslow MD 09/10/2021 8:24:35 AM This report has been signed electronically.
== END 2021-09-10 23:59 | disposition home or self-care (01) ==
LOC: EN 07:08 → AC 07:09
PROVIDERS: PCP Internal Medicine; Referring Provider Internal Medicine; Visit Provider Surgery
PROC: 0DJD8ZZ Inspection of Lower Intestinal Tract, Via Natural or Artificial Opening Endoscopic (ICD-10-PCS; CPT 45378; principal; 2021-09-10 08:10)
DX: K63.5 Polyp of colon (principal); E11.9 Type 2 diabetes mellitus without complications; K57.30 Diverticulosis of large intestine without perforation or abscess without bleeding; K64.9 Unspecified hemorrhoids; Z12.11 Encounter for screening for malignant neoplasm of colon; N40.0 Benign prostatic hyperplasia without lower urinary tract symptoms; Z86.19 Personal history of other infectious and parasitic diseases; Z79.899 Other long term (current) drug therapy; Z95.0 Presence of cardiac pacemaker; I11.9 Hypertensive heart disease without heart failure; Z90.49 Acquired absence of other specified parts of digestive tract; Z85.038 Personal history of other malignant neoplasm of large intestine; G25.81 Restless legs syndrome; Z98.0 Intestinal bypass and anastomosis status
CPT/HCPCS: 45380; 82962; 88305; J7120; J2405

== ENCOUNTER 2024-01-13 13:24 | Emergency (ER) | payer MEDICARE, SELFPAY ==
[2024-01-13 13:25] VITALS: BP 124/60; PULSE 68; RESP 19; TEMP 36.6; O2SAT 94; BMI 26.4
--- NOTE | 2024-01-13 15:14 | ED.VIS.LOWEX ---
HPI History of Present Illness HPI Narrative: Patient presents with pain and swelling to his right second toe that he noticed last night. Patient states he is diabetic and has intermittent pain in his toe. Patient describes his pain as sharp. Patient denies any trauma or injury. Patient admits to some numbness and tingling into his toes but states this is chronic. Patient noticed an open wound to his right second toe last night. Patient denies any discharge or drainage. Patient denies any fevers or chills. Chief Complaint: Wound Onset/Context/Timing Onset: Yesterday Context: Gradual Onset Timing: Waxes and wanes Quality of Pain: Sharp Location: Right second toe Worsened by: Nothing Relieved by: Nothing Associated Symptoms Associated Symptoms: Positive for Parasthesia; Negative for Weakness or Loss of Funtion PFSH PFS Medical History Anemia BPH associated with nocturia Cancer Cardiology follow-up encounter Diabetes Dietary restriction Fever, unknown origin Fever, unknown origin Heart disease History of atrial fibrillation History of stress test Hypertension Leg cramps Non-smoker Pacemaker Prostate disease Restless legs Sepsis Septic shock Severe sepsis Wears glasses Wears hearing aid Home Medications Super Beta Prostate 2 tab PO BID prostate 02/25/16 [History Last Taken 06/30/19] vitamins A,C,N-mrjz-ojvzgi 4,296 mcg-226 mg-90 mg capsule 1 ea PO DAILY supplement 06/28/19 [History Last Taken 06/30/19] rivaroxaban 20 mg tablet 20 mg PO DAILY blood thinner 01/29/20 [History Last Taken Unknown] carvedilol 6.25 mg tablet 6.25 mg PO BID #60 tabs 02/02/20 [Rx Last Taken Unknown] vit C 250 mg-vit E 90 mg-zinc 40 mg-copper 1 nz-hpmrlz-ppaoag capsule 1 ea PO BID 02/02/20 [Rx Last Taken Unknown] lisinopril 5 mg tablet 2.5 mg PO DAILY 06/20/21 [History Last Taken Unknown] cephalexin 500 mg capsule 500 mg PO Q6 #40 CAPSULES 01/13/24 [Rx Last Taken Unknown] Allergy/AdvReac Type Severity Reaction Status Date / Time adhesive tape Allergy Rash Verified 09/10/21 07:24 bacitracin Allergy Other Verified 09/10/21 07:24 [From Neosporin (zoc-atv-coaaz)] bacitracin zinc Allergy Other Verified 09/10/21 07:24 [From Neosporin (uyk-hgt-pwkeq)] neomycin sulfate Allergy Other Verified 09/10/21 07:24 [From Neosporin (vab-dsw-anuxc)] polymyxin B Allergy Other Verified 09/10/21 07:24 [From Neosporin (cwn-hhx-itofq)] polymyxin B sulfate Allergy Rash Verified 09/10/21 07:24 [From Polysporin] Surgical History History of cardiac catheterization Hx laparoscopic cholecystectomy Hx of amputation of lesser toe Hx of colonoscopy Hx of umbilical hernia repair S/P cardiac pacemaker procedure S/P skin cancer resection S/P tonsillectomy S/P TURP Social History Smoking Status: Never smoker alcohol intake: never ROS ROS ED Constitutional Constitutional ED: Denies chills or fever(s) Eyes Eyes: Denies blurry vision or change in vision ENT ENT ED: Denies rhinorrhea or sore throat Cardiovascular Cardiovascular: Denies chest pain or palpitations Respiratory/Chest Respiratory/Chest: Denies cough or dyspnea Gastrointestinal Gastrointestinal: Denies nausea or vomiting Genitourinary Genitourinary ED: Denies dysuria or hematuria Musculoskeletal Musculoskeletal: Denies back pain or neck pain Integumentary Denies abscess or rash Neurologic Neurologic: Denies headache(s) or weakness Allergic/Immunologic Allergic/Immunologic ED: Denies mouth swelling or urticaria EXAM Physical Exam Const Vital Signs: 01/13/24 13:25 Temperature 97.9 F Temperature Source Temporal Pulse Rate 68 Respiratory Rate 19 H Blood Pressure 124/60 H Blood Pressure Mean 81 Pulse Ox 94 Oxygen Delivery Method Room Air Positive well nourished and well developed General Appearance ED: well developed and NAD HEENT Reports moist mucous membranes Neck full ROM and supple Extremity Extremity Narrative: There is mild tenderness and edema over the distal phalanx of the right second toe. There is mild erythema. There is no fluctuance. There is no discharge or drainage noted. Sensation was diminished to light touch in the second, third, and fourth digits. Capillary refill was less than 2 seconds in all digits. Pedal pulses are equal bilaterally. Neuro oriented x3, CN's II-XII intact bilaterally and moves all extremities Sensorium / Orientation: alert Motor Exam: strength 5/5 throughout Psych mental status grossly normal MDM MDM MDM Narrative Medical decision making narrative: Differential diagnosis includes diabetic foot ulceration, osteomyelitis, and toe fracture. CBC will be obtained to assess for leukocytosis and anemia. Basic metabolic profile will be obtained to assess for electrolyte abnormality and renal function. X-rays of the right foot will be obtained to assess for osteomyelitis and occult fracture. Sed rate and CRP will be obtained to assess for acute phase reactants. Lab Data Attestation: I reviewed the patient's lab results. Lab results narrative: CBC was reviewed and was essentially within normal limits. Mild anemia with a hemoglobin of 12.2 and hematocrit of 38.3. Basic metabolic profile was reviewed and was essentially within normal limits. Sed rate was reviewed and was normal at 9. CRP was reviewed and was normal at less than 2.9. Labs: Laboratory Results - last 24 hr 01/13/24 15:55 WBC 4.4 RBC 4.08 L Hgb 12.2 L Hct 38.3 L MCV 93.9 MCH 29.9 MCHC 31.9 L RDW Std Deviation 48.9 H RDW Coeff of Isael 14.2 Plt Count 139 L MPV 12.2 H Immature Gran % (Auto) 0.900 Neut % (Auto) 41.2 L Lymph % (Auto) 44.4 H [place] % (Auto) 11.2 H Eos % (Auto) 1.8 Baso % (Auto) 0.5 Absolute Neuts (auto) 1.8 L Absolute Lymphs (auto) 1.95 Nucleated RBC % 0 ESR 9 Sodium 138 Potassium 4.2 Chloride 104 Carbon Dioxide 29.0 Anion Gap 5 BUN 21 H Creatinine 0.85 Estim Creat Clear Calc 73.82 Est GFR (MDRD) Af Amer 112 Est GFR (MDRD) Non-Af 93 BUN/Creatinine Ratio 24.8 H Glucose 152 H Calcium 9.6 C-React Prot Ext Range < 2.90 Radiography Diagnostic Testing: Clinical Impression(s) from Imaging Studies Foot X-Ray 01/13/24 16:12 IMPRESSION: Previous amputation of the distal aspect of the fourth phalanx. There are no acute osseous abnormalities. Electronically Signed: Андрей Johnson MD at 16:47 EDT , X-rays of the right foot were obtained. There are 3 views. On my independent interpretation, there is no evidence of osteomyelitis or soft tissue gas noted. There is no acute fracture or radiopaque foreign body noted. Radiologist also interpreted the x-rays and agrees. Treatment and Re-Evaluation Narrative: Patient was given a dose of Unasyn and Flagyl here. Patient was advised of his findings. Patient was given a prescription for Keflex. 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 Patient understood and was agreeable with the plan. All questions were answered. Discharge Plan Triage Chief Complaint: Wound ED Provider: Talon Jeffery Dx/Rx/DC Orders Clinical Impression: Diabetes, Diabetic foot ulcer Instructions: ED Diabetic Foot Care, ED Wound Care Prescriptions: New cephalexin [cephalexin] 500 mg capsule 500 mg PO Q6 Qty: 40 0RF No Action lisinopril 5 mg tablet 2.5 mg PO DAILY Super Beta Prostate 2 tab PO BID vitamins A,C,H-hxek-fhezoj 1 EACH capsule 1 ea PO DAILY rivaroxaban 20 MG tablet 20 mg PO DAILY vit C,N-Gc-rznkg-lutein-zeaxan 1 EACH capsule 1 ea PO BID 0RF carvedilol 6.25 MG tablet 6.25 mg PO BID Qty: 60 0RF Primary Care Provider: Jada Castellanos Referrals: Jada Castellanos MD [Primary Care Provider] - Amos Church DPM [Med Staff - Active Staff] - 3-5 Days Disposition Disposition: Home, Self Care
--- NOTE | 2024-01-13 16:12 | RAD_ITS ---
EXAM: XR RIGHT FOOT COMPLETE, 3 OR MORE VIEWS CLINICAL INDICATION: Pain TECHNIQUE: Frontal, lateral and oblique views of the right foot. COMPARISON: No relevant prior studies available. FINDINGS: BONES/JOINTS: There has been an amputation of the fourth toe at the level of the proximal interphalangeal joint. No acute fracture. No subluxation. Normal alignment. No sclerotic or destructive changes observed. SOFT TISSUES: Unremarkable. No soft tissue swelling or gas. No radiopaque foreign body. RAD/Foot min 3 Views IMPRESSION: Previous amputation of the distal aspect of the fourth phalanx. There are no acute osseous abnormalities. Electronically Signed: Андрей Johnson MD at 16:47 EDT ,
[2024-01-13 16:22] LABS: Absolute Lymphocyte Count 1.95 X10^3/uL (0.83-4.51); Absolute Neutrophil Count 1.8 X10^3/uL (2.0-7.7); Basophil# 0.02 X10^3/uL; Basophil% 0.5 % (0-1); Eosinophil# 0.08 X10^3/uL; Eosinophils% 1.8 % (0-5); Hematocrit 38.3 % (40-54); Hemoglobin 12.2 g/dL (13.0-16.5); Lymphocyte # 1.95 X10^3/ul (0.83-4.51); Lymphocyte % 44.4 % (19-41); Mean Corp Hgb Conc 31.9 g/dL (32-36); Mean Corpuscular Hgb 29.9 pg (27.0-32.0); Mean Corpuscular Volume 93.9 fL (80-94); Mean Platelet Vol. 12.2 fl (6.2-12.0); Monocyte# 0.49 X10^3/uL; Monocyte% 11.2 % (0-10); NRBC Flagged by Analyzer 0 % (0-5); Neutrophil # 1.81 X10^3/uL (2.7-7.7); Neutrophil % 41.2 % (47-70); Platelet Count 139 K/mm3 (150-450); RBC Distribution Width CV 14.2 % (11.6-14.6); RBC Distribution Width SD 48.9 fl (35.1-43.9); Red Blood Count 4.08 M/mm3 (4.6-6.2); White Blood Count 4.4 K/mm3 (4.4-11.0)
[2024-01-13 16:26] LABS: Anion Gap 5 (5-15); BUN 21 mg/dL (7-18); BUN/Creat Ratio 24.8 RATIO (10-20); CRP < 2.90 mg/L (0.0-3.0); Calcium,Total 9.6 mg/dL (8.5-10.1); Chloride 104 mmol/L (98-107); Creatinine, Serum 0.85 mg/dL (0.70-1.30); EST Glomerular Filtration Rate 93 mL/min (>60); Est Glom Filt Rate - Afr Amer 112 mL/min (>60); Estimated Creatinine Clearance 73.82 ml/min; Glucose 152 mg/dL (74-106); Potassium 4.2 mmol/L (3.5-5.1); Sodium Level 138 mmol/L (136-145)
[2024-01-13 16:43] LABS: Erythrocyte Sedimentation Rate 9 mm/hr (0-20)
[2024-01-13] MEDS: Ampicillin/Sulbactam 3 GM in 0.9% Normal Saline (100mL MB+) 100 ML IV (17:14)
[2024-01-13] MEDS: metroNIDAZOLE 500 MG/100 ML BAG 100 MG IV (17:57)
[2024-01-13 19:21] VITALS: BP 120/74; PULSE 74; RESP 16; TEMP 36.3; O2SAT 98
== END 2024-01-13 19:22 | disposition home or self-care (01) ==
PROVIDERS: Emergency Provider Emergency Medicine; PCP Internal Medicine; Visit Provider Emergency Medicine
DX: E11.621 Type 2 diabetes mellitus with foot ulcer (principal); I48.91 Unspecified atrial fibrillation; I10 Essential (primary) hypertension; Z79.01 Long term (current) use of anticoagulants; Z79.899 Other long term (current) drug therapy; Z90.49 Acquired absence of other specified parts of digestive tract; Z95.0 Presence of cardiac pacemaker
CPT/HCPCS: 73630; 80048; 85025; 85652; 86140; 96365; 96368; 99283; J7050; A4216; J0295

== ENCOUNTER 2024-05-08 09:37 | Emergency (ER) | payer MEDICARE, SELFPAY ==
[2024-05-08 09:38] VITALS: BP 122/58; PULSE 89; RESP 18; TEMP 36.3; O2SAT 95; BMI 25.0
--- NOTE | 2024-05-08 10:27 | RAD_ITS ---
EXAM: XR RIGHT FOOT COMPLETE, 3 OR MORE VIEWS CLINICAL INDICATION: diabetic foot infection (2nd Toe) TECHNIQUE: Frontal, lateral and oblique views of the right foot. COMPARISON: 01/13/2024 FINDINGS: BONES/JOINTS: Apparent erosion of the second distal phalanx similar to the prior examination perhaps indicative of osteomyelitis. Arthritic changes at the ankle with moderate spurring of the medial lateral malleoli. Articular sclerosis and other arthritic changes within the midfoot. Degenerative changes at the first metatarsal phalangeal joint and first interphalangeal joint. Apparent amputation changes of the fourth digit through the proximal phalangeal head. Calcaneal spurs. SOFT TISSUES: Soft tissue swelling of the first and second digits. No radiopaque foreign body. RAD/Foot min 3 Views IMPRESSION: 1. Apparent erosion of the second distal phalanx similar to the prior examination perhaps indicative of osteomyelitis. 2. Soft tissue swelling of the first and second digits. 3. Apparent amputation changes of the fourth digit through the proximal phalangeal head. Electronically Signed: Joe Gold DO at 11:35 EDT ,
--- NOTE | 2024-05-08 10:29 | EX.ED.DYSGE1 ---
HPI History of Present Illness Chief Complaint: Cellulitis Informant: patient Narrative Narrative: 78-year-old male presenting to the emergency room with diabetic foot infection. Patient states that he had his toenail trimmed with podiatry (Dr. Whalen-[facility]) approximately 9 days ago. He states over the past couple days he developed redness and swelling of the second right toe and now has erythema extending up the foot onto the right leg. He denies any fevers. Not currently on any antibiotics. He does have mild neuropathy of the feet. Patient states he does not take anything for his diabetes. [facility] Medical History Wears hearing aid Wears glasses Cancer Diabetes Prostate disease Anemia Restless legs Dietary restriction Non-smoker Leg cramps Hypertension Cardiology follow-up encounter History of stress test History of atrial fibrillation Heart disease BPH associated with nocturia Septic shock Fever, unknown origin Severe sepsis Fever, unknown origin Sepsis Pacemaker Home Medications ?Medication ?Instructions ?Recorded ?Last Taken ?Type Super Beta Prostate 2 tab PO BID prostate 02/25/16 06/30/19 History vitamins A,C,X-sgea-jedfbx 4,296 1 ea PO DAILY supplement 06/28/19 06/30/19 History mcg-226 mg-90 mg capsule rivaroxaban 20 mg tablet 20 mg PO DAILY blood thinner 01/29/20 Unknown History carvedilol 6.25 mg tablet 6.25 mg PO BID #60 tabs 02/02/20 Unknown Rx vit C 250 mg-vit E 90 mg-zinc 40 1 ea PO BID 02/02/20 Unknown Rx mg-copper 1 pt-eiqjba-sapehw capsule lisinopril 5 mg tablet 2.5 mg PO DAILY 06/20/21 Unknown History cephalexin 500 mg capsule 500 mg PO Q6 #40 CAPSULES 01/13/24 Unknown Rx cephalexin 500 mg capsule 500 mg PO Q6 #40 CAPSULES 05/08/24 Unknown Rx Allergy/AdvReac Type Severity Reaction Status Date / Time adhesive tape Allergy Rash Verified 05/08/24 09:38 bacitracin (From Neosporin Allergy Other Verified 05/08/24 09:38 ([id number])) bacitracin zinc (From Allergy Other Verified 05/08/24 09:38 Neosporin (ams-xkm-vrysp)) neomycin sulfate (From Allergy Other Verified 05/08/24 09:38 Neosporin (zve-jgy-ehdte)) polymyxin B (From Neosporin Allergy Other Verified 05/08/24 09:38 (thg-foy-aqbfq)) polymyxin B sulfate (From Allergy Rash Verified 05/08/24 09:38 Polysporin) Surgical History Hx of colonoscopy History of cardiac catheterization Hx of amputation of lesser toe Hx of umbilical hernia repair S/P skin cancer resection S/P TURP Hx laparoscopic cholecystectomy S/P cardiac pacemaker procedure S/P tonsillectomy Social History Smoking Status: Never smoker alcohol intake: never ROS ROS ED Constitutional Constitutional ED: Denies chills, fever(s), sweats or weight loss Eyes Eyes: Denies change in vision or diplopia ENT ENT ED: Denies ear pain, rhinorrhea or sore throat Cardiovascular Cardiovascular: Denies chest pain, orthopnea, palpitations or racing heartbeat Respiratory/Chest Respiratory/Chest: Denies cough, dyspnea or orthopnea Gastrointestinal Gastrointestinal: Denies abdominal pain, diarrhea, nausea or vomiting Genitourinary Genitourinary ED: Denies dysuria, hematuria or urinary frequency Musculoskeletal Musculoskeletal: Denies arthralgias or myalgias Integumentary Reports rash and other Details: See history of present illness ; Denies abscess Neurologic Neurologic: Denies headache(s) or weakness Psychiatric Psychiatric: Denies anxiety, depression, suicidal ideation or suicidal thoughts Endocrine Endocrinology: Denies polydipsia, polyphagia or polyuria Allergic/Immunologic Allergic/Immunologic ED: Denies mouth swelling, tongue swelling or urticaria EXAM Physical Exam Const Vital Signs: 05/08/24 09:38 05/08/24 11:38 Temperature 97.3 F L 97.6 F L Temperature Source Temporal Oral Pulse Rate 89 Respiratory Rate 18 Blood Pressure 122/58 H 120/59 L Blood Pressure Mean 79 79 Pulse Ox 95 Oxygen Delivery Method Room Air Positive well nourished and well developed General Appearance ED: well developed HEENT Reports normocephalic, head/scalp atraumatic and moist mucous membranes Eyes PERRL and EOMs intact bilaterally Neck no lymphadenopathy, supple and no JVD Resp normal respiratory effort and clear to auscultation bilaterally Cardio regular rate, regular rhythm and no murmurs GI normal to inspection, nondistended, normoactive bowel sounds and non-tender Palpation: soft Back/Spine no CVA tenderness and normal ROM Extremity Extremity Narrative: Right second toe is erythematous and swollen. There is a small area of open skin over the lateral aspect of the distal toe. There is erythema and swelling of the foot and distal leg. There is increased warmth. No subcutaneous emphysema. Neuro oriented x3 and CN's II-XII intact bilaterally Sensorium / Orientation: alert Motor Exam: strength 5/5 throughout Psych mental status grossly normal Mood & Affect: Negative for depressed or tearful MDM MDM MDM Narrative Medical decision making narrative: Differential diagnosis includes but not limited to cellulitis osteomyelitis DVT lymphedema/peripheral vascular disease necrotizing fasciitis abscess White count 7.4 with 63.8 neutrophils 22.5 lymphocytes. Blood glucose is 165 total bilirubin 1.1 direct bilirubin 0.37 lactic acid is elevated 3.3. He is however normotensive not tachycardic alert and oriented appears to be perfusing well. He did have elevation of his lactic acid in January when he had foot infection. My independent interpretation of the plain films of the right foot is possible chronic osteomyelitis of the second toe however I do not see significant change from the x-ray from January of this year. I spoke with the patient and his regarding the above findings. Using shared decision making we agreed upon a treatment plan. He is not febrile he has a normal white count and he has not been on antibiotics. He and presenting different treatment options to him including hospitalization he would prefer to start oral antibiotics after a dose of vancomycin and Zosyn here and follow-up with Dr. Whalen in the office. He notes that he had a similar infection of this toe in January of this year and did well on oral antibiotics. He and his note understanding that he may worsen and require hospitalization. I think that this is a reasonable plan. History & Record Review Discussion w/independent historian: Patient and Family Additional record(s) reviewed:: Prior ED visit and Prior labs Lab Data Attestation: I reviewed the patient's lab results. Labs: Laboratory Results - last 24 hr 05/08/24 10:40 WBC 7.4 RBC 3.67 L Hgb 10.7 L Hct 34.1 L MCV 92.9 MCH 29.2 MCHC 31.4 L RDW Std Deviation 50.0 H RDW Coeff of Isael 14.6 Plt Count 108 L MPV 11.2 Immature Gran % (Auto) 1.900 H Neut % (Auto) 63.8 Lymph % (Auto) 22.5 [place] % (Auto) 11.0 H Eos % (Auto) 0.5 Baso % (Auto) 0.3 Absolute Neuts (auto) 4.7 Absolute Lymphs (auto) 1.66 Nucleated RBC % 0 PT 20.3 H INR 1.7 APTT 39.0 H Sodium 137 Potassium 3.6 Chloride 102 Carbon Dioxide 28.0 Anion Gap 7 BUN 26 H Creatinine 0.93 Estim Creat Clear Calc 67.47 Est GFR (MDRD) Af Amer 101 Est GFR (MDRD) Non-Af 83 BUN/Creatinine Ratio 28.0 H Glucose 165 H Lactic Acid 3.3 H* Calcium 9.0 Total Bilirubin 1.10 H Direct Bilirubin 0.37 H AST 15 ALT 17 Alkaline Phosphatase 85 Total Protein 6.9 Albumin 3.3 Globulin 3.6 Radiography Diagnostic Testing: Clinical Impression(s) from Imaging Studies Foot X-Ray 05/08/24 10:27 IMPRESSION: 1. Apparent erosion of the second distal phalanx similar to the prior examination perhaps indicative of osteomyelitis. 2. Soft tissue swelling of the first and second digits. 3. Apparent amputation changes of the fourth digit through the proximal phalangeal head. Electronically Signed: Joe Gold DO at 11:35 EDT , Discharge Plan Triage Chief Complaint: Cellulitis ED Provider: Jon Russell Dx/Rx/DC Orders Clinical Impression: Cellulitis of foot, Diabetes Instructions: ED Cellulitis Prescriptions: New cephalexin 500 mg capsule 500 mg PO Q6 Qty: 40 0RF No Action lisinopril 5 mg tablet 2.5 mg PO DAILY Super Beta Prostate 2 tab PO BID vitamins A,C,L-tkdh-rzpoda 1 EACH capsule 1 ea PO DAILY rivaroxaban 20 MG tablet 20 mg PO DAILY vit C,P-Ps-sjlca-lutein-zeaxan 1 EACH capsule 1 ea PO BID 0RF carvedilol 6.25 MG tablet 6.25 mg PO BID Qty: 60 0RF cephalexin [cephalexin] 500 mg capsule 500 mg PO Q6 Qty: 40 0RF Primary Care Provider: Jada Castellanos Referrals: Jada Castellanos MD [Primary Care Provider] - Amos Church DPM [Med Staff - Active Staff] - As soon as possible Print Language: Palauan Disposition Disposition: Home, Self Care
[2024-05-08 10:51] LABS: Absolute Lymphocyte Count 1.66 X10^3/uL (0.83-4.51); Absolute Neutrophil Count 4.7 X10^3/uL (2.0-7.7); Basophil# 0.02 X10^3/uL; Basophil% 0.3 % (0-1); Eosinophil# 0.04 X10^3/uL; Eosinophils% 0.5 % (0-5); Hematocrit 34.1 % (40-54); Hemoglobin 10.7 g/dL (13.0-16.5); Lymphocyte # 1.66 X10^3/ul (0.83-4.51); Lymphocyte % 22.5 % (19-41); Mean Corp Hgb Conc 31.4 g/dL (32-36); Mean Corpuscular Hgb 29.2 pg (27.0-32.0); Mean Corpuscular Volume 92.9 fL (80-94); Mean Platelet Vol. 11.2 fl (6.2-12.0); Monocyte# 0.81 X10^3/uL; NRBC Flagged by Analyzer 0 % (0-5); Neutrophil % 63.8 % (47-70); Platelet Count 108 K/mm3 (150-450); RBC Distribution Width CV 14.6 % (11.6-14.6); Red Blood Count 3.67 M/mm3 (4.6-6.2); White Blood Count 7.4 K/mm3 (4.4-11.0)
[2024-05-08] MEDS: Piperacil/Tazobactam 4.5 GM in 0.9% Normal Saline (100mL MB+) 100 ML IV (10:51)
[2024-05-08 10:59] LABS: International Normalized Ratio 1.7; Prothrombin Time (Protime)PT. 20.3 SECONDS (11.7-14.9)
[2024-05-08 11:04] LABS: AST(SGOT) 15 U/L (15-37); Alanine Aminotransfer ALT/SGPT 17 U/L (16-61); Albumin, Serum 3.3 g/dL (3.2-5.0); Alkaline Phosphatase 85 U/L (45-117); Anion Gap 7 (5-15); BUN 26 mg/dL (7-18); Bilirubin, Direct 0.37 mg/dL (0.00-0.30); Chloride 102 mmol/L (98-107); Creatinine, Serum 0.93 mg/dL (0.70-1.30); EST Glomerular Filtration Rate 83 mL/min (>60); Est Glom Filt Rate - Afr Amer 101 mL/min (>60); Estimated Creatinine Clearance 67.47 ml/min; Globulin 3.6 g/dL (2.2-4.2); Glucose 165 mg/dL (74-106); Potassium 3.6 mmol/L (3.5-5.1); Protein, Total 6.9 g/dL (6.4-8.2); Sodium Level 137 mmol/L (136-145)
[2024-05-08 11:22] LABS: Lactic Acid 3.3 mmol/L (0.4-1.9)
[2024-05-08 11:38] VITALS: BP 120/59; TEMP 36.4
[2024-05-08] MEDS: Vancomycin HCl 2,000 MG in 0.9% Normal Saline (500mL Bag) 500 ML 250 MG IV (12:01)
[2024-05-08 13:00] VITALS: BP 104/52; PULSE 72; RESP 16; O2SAT 98
[2024-05-08 14:26] VITALS: BP 115/59; PULSE 65; RESP 18; TEMP 36.4; O2SAT 98
[2024-05-08 14:45] LABS: Reflex Lactate? Y
== END 2024-05-08 14:35 | disposition home or self-care (01) ==
PROVIDERS: Emergency Provider Emergency Medicine; PCP Internal Medicine; Visit Provider Emergency Medicine
DX: L03.115 Cellulitis of right lower limb (principal); I48.91 Unspecified atrial fibrillation; E11.40 Type 2 diabetes mellitus with diabetic neuropathy, unspecified; I10 Essential (primary) hypertension; Z95.0 Presence of cardiac pacemaker; Z79.899 Other long term (current) drug therapy; Z79.01 Long term (current) use of anticoagulants; Z90.49 Acquired absence of other specified parts of digestive tract
CPT/HCPCS: 73630; 80048; 80076; 83605; 85025; 85610; 85730; 87040; 96365; 96366; 99283; J7040; A4216

== ENCOUNTER → 2024-09-29 | Outpatient (CLI) | payer MEDICARE, SELFPAY ==
--- NOTE | 2024-09-29 07:37 | CT_ITS ---
CT LEFT LOWER EXTREMITY WITH 3-D IMAGING CLINICAL INDICATION: Unilateral primary osteoarthritis, left knee. TECHNIQUE: Axial CT images of the left lower extremity (including left hip, left knee, left ankle) was performed without IV contrast material. Coronal and sagittal reformats were provided. The protocol utilizes one or more of the following dose reduction techniques: automated exposure control, adjustment of mA and/or kV according to patient size, and/or use of iterative reconstruction technique. RADIATION DOSAGE (If Supplied By Facility): CTDIvol = ( 19.7 ) mGy, DLP = ( 1309.43 ) mGycm COMPARISON: No relevant prior comparison study available. FINDINGS: Bones: There is mild degenerative arthrosis of the left hip joint. There is pubic symphysis arthrosis. There is tricompartment degenerative arthrosis of the left knee, most pronounced in the lateral femorotibial compartment, where there is joint space narrowing, marginal osteophyte formation, and subchondral sclerosis. There is mild degenerative arthrosis in the left ankle. There are tiny plantar and posterior calcaneal spurs. Osseous structures are intact without evidence of fracture or dislocation. No lytic or blastic osseous masses. Soft Tissues: There is chronic sigmoid diverticulosis without acute diverticulitis. There is a small left knee joint effusion. There are atherosclerotic calcifications. The deep soft tissue structures are otherwise unremarkable. The superficial soft tissues are unremarkable without evidence of edema, hematoma, or foreign body. CT/Extremity Lower without Contra IMPRESSION: Tricompartment degenerative arthrosis of the left knee, most pronounced in the lateral femorotibial compartment. Small left knee joint effusion. Electronically Signed: aKrthik Saunders MD at 8:22 EST ,
== END | disposition home or self-care (01) ==
LOC: CT 07:36
PROVIDERS: PCP Internal Medicine; Referring Provider Specialist; Visit Provider Specialist
DX: M17.12 Unilateral primary osteoarthritis, left knee (principal); M25.562 Pain in left knee
CPT/HCPCS: 73700

== ENCOUNTER 2024-10-24 06:45 | Day surgery (SDC) | payer MEDICARE, SELFPAY ==
--- NOTE | 2024-09-29 07:40 | EKG12_ITS ---
Test Reason : PRE OP Blood Pressure : */* mmHG Vent. Rate : 71 BPM Atrial Rate : 71 BPM P-R Int : 132 ms QRS Dur : 150 ms QT Int : 422 ms P-R-T Axes : 31 -78 86 degrees QTcB Int : 458 ms AV sequential or dual chamber electronic pacemaker When compared with ECG of 29-Jan-2020 19:06, Vent. rate has decreased by 39 bpm Confirmed by LOBO HOLLINS, MICAELA ([id number]), editor index MARV SIMPSON ([id number]) on 10/03/2024 2:10:05 PM Referred By: Adolph Martinez Confirmed By: MICAELA DIAMOND MD
[2024-09-29 08:53] LABS: Absolute Lymphocyte Count 1.47 X10^3/uL (0.83-4.51); Absolute Neutrophil Count 1.8 X10^3/uL (2.0-7.7); Basophil# 0.01 X10^3/uL; Basophil% 0.3 % (0-1); Eosinophil# 0.08 X10^3/uL; Eosinophils% 2.1 % (0-5); Hemoglobin 11.8 g/dL (13.0-16.5); Lymphocyte # 1.47 X10^3/ul (0.83-4.51); Lymphocyte % 37.8 % (19-41); Mean Corp Hgb Conc 31.9 g/dL (32-36); Mean Corpuscular Hgb 29.7 pg (27.0-32.0); Mean Corpuscular Volume 93.2 fL (80-94); Mean Platelet Vol. 12.7 fl (6.2-12.0); Monocyte# 0.46 X10^3/uL; Monocyte% 11.8 % (0-10); NRBC Flagged by Analyzer 0 % (0-5); Neutrophil # 1.83 X10^3/uL (2.7-7.7); Platelet Count 134 K/mm3 (150-450); RBC Distribution Width CV 14.7 % (11.6-14.6); RBC Distribution Width SD 51.2 fl (35.1-43.9); Red Blood Count 3.97 M/mm3 (4.6-6.2); White Blood Count 3.9 K/mm3 (4.4-11.0)
[2024-09-29 09:05] LABS: International Normalized Ratio 1.6; Prothrombin Time (Protime)PT. 19.6 SECONDS (11.7-14.9)
[2024-09-29 09:06] LABS: Partial Thromboplast Time 38.6 Seconds (24.1-36.2)
[2024-09-29 09:19] LABS: Anion Gap 7 (5-15); BUN 25 mg/dL (7-18); BUN/Creat Ratio 29.7 RATIO (10-20); Calcium,Total 9.2 mg/dL (8.5-10.1); Chloride 106 mmol/L (98-107); Creatinine, Serum 0.84 mg/dL (0.70-1.30); EST Glomerular Filtration Rate 93 mL/min (>60); Est Glom Filt Rate - Afr Amer 112 mL/min (>60); Glucose 107 mg/dL (74-106); Potassium 4.1 mmol/L (3.5-5.1); Sodium Level 140 mmol/L (136-145)
[2024-09-29 09:20] LABS: AST(SGOT) 12 U/L (15-37); Alanine Aminotransfer ALT/SGPT 18 U/L (16-61); Albumin, Serum 3.7 g/dL (3.2-5.0); Alkaline Phosphatase 90 U/L (45-117); Globulin 3.9 g/dL (2.2-4.2); Hemoglobin A1c 5.7 % (3.8-5.6); Magnesium 2.1 mg/dL (1.6-2.6); Protein, Total 7.6 g/dL (6.4-8.2)
--- NOTE | 2024-09-29 17:02 | PAT.ANE_ITS ---
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 When Was Last Pacemaker Check JANUARY 2016 06/30/19 10:34 QUESTION #4 FULL TEXT: You/Your Family Experience fever (hyperthermia) with Anesthesia Last Oral Intake Last Oral intake: Last Oral Intake NPO since Meds taken in AM with sips of water? 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: PONV - water safety teacher Female No 09/26/24 08:21 HX of Motion Sickness Yes 09/26/24 08:21 HX of N/V After Surgery No 09/26/24 08:21 Non-Smoker Yes 09/26/24 08:21 Duration of Surgery greater Yes 09/26/24 08:21 than 60 minutes Number of Risk Factors 3 09/26/24 08:21 PONV Score Moderate Risk 09/26/24 08:21 Height & Weight Height & Weight: Anesthesia: Height & Weight Height 5 ft 11 in 05/08/24 09:38 Respiratory Assessment Respiratory Assessment - water safety teacher: Respiratory Tract Infection Hx - water safety teacher Hx Respiratory Tract Infection No 09/26/24 08:21 STOP Sleep Apnea STOP Sleep Apnea - water safety teacher: STOP Sleep Apnea - water safety teacher Hx Hypertension Yes: CONTROLLED WITH MED 09/26/24 08:21 Hx Sleep Apnea No 09/26/24 08:21 CPAP No 09/26/24 08:21 BIPAP No 09/26/24 08:21 Do you snore loudly (louder No 09/26/24 08:21 than talking or can be heard Do you often feel tired/ No 09/26/24 08:21 fatigued/ sleepy during daytime? Has anyone observed you stop No 09/26/24 08:21 breathing during sleep? STOP Results Negative 09/26/24 08:21 QUESTION #5 FULL TEXT : Do you snore loudly (louder than talking or can be heard through closed doors)? 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 Specify any problems Hx of Preganancy in last 3 N/A 09/26/24 08:21 Months Nurse Filling Out Transfusion MGRIFFITH 09/26/24 08:21 & Questions: Date: 09/26/24 09/26/24 08:21 Time: 08:23 09/26/24 08:21 Patient unable to answer at this time (ie. confused, unrespo /Reproduction History /Reproductive History - water safety teacher: /Reproductive Hx- water safety teacher Hx Now Gestational Age (in weeks): EDC: Hx Hx Para Hx Section SAB No 09/03/21 14:25 [facility] Medical History (Updated 09/26/24 @ 08:34 by Letty Vázquez) Arthritis Excessive bleeding History of diverticulitis History of echocardiogram Wears hearing aid Wears glasses Cancer Diabetes Prostate disease Dietary restriction Non-smoker Leg cramps Hypertension Cardiology follow-up encounter History of stress test History of atrial fibrillation Heart disease BPH associated with nocturia Septic shock Fever, unknown origin Severe sepsis Fever, unknown origin Sepsis Pacemaker Home Medications ?Medication ?Instructions ?Recorded ?Last Taken ?Type Super Beta Prostate 2 tab PO BID prostate 02/25/16 06/30/19 History vitamins A,C,T-julx-bccumh 4,296 1 ea PO DAILY supplement 06/28/19 06/30/19 History mcg-226 mg-90 mg capsule rivaroxaban 20 mg tablet 20 mg PO DAILY blood thinner 01/29/20 Unknown History carvedilol 6.25 mg tablet 6.25 mg PO BID #60 tabs 02/02/20 Unknown Rx vit C 250 mg-vit E 90 mg-zinc 40 1 ea PO BID 02/02/20 Unknown Rx mg-copper 1 zl-vtoqfx-jxwajd capsule lisinopril 5 mg tablet 2.5 mg PO DAILY 06/20/21 Unknown History Allergy/AdvReac Type Severity Reaction Status Date / Time adhesive tape Allergy Rash Verified 09/26/24 08:17 bacitracin (From Neosporin Allergy Other Verified 09/26/24 08:17 (cny-[id number])) bacitracin zinc (From Allergy Other Verified 09/26/24 08:17 Neosporin (vfd-gkm-[id number])) neomycin sulfate (From Allergy Other Verified 09/26/24 08:17 Neosporin (pig-gmo-ojvoy)) polymyxin B (From Neosporin Allergy Other Verified 09/26/24 08:17 (unw-obf-hynfi)) polymyxin B sulfate (From Allergy Rash Verified 09/26/24 08:17 Polysporin) Surgical History (Updated 09/26/24 @ 08:21 by Letty Vázquez) History of radiofrequency ablation (RFA) procedure for cardiac arrhythmia Hx of colonoscopy History of cardiac catheterization Hx of amputation of lesser toe Hx of umbilical hernia repair S/P skin cancer resection S/P TURP Hx laparoscopic cholecystectomy S/P cardiac pacemaker procedure S/P tonsillectomy Social History Smoking Status: Never smoker alcohol intake: never Audit: Pertinent Findings Pertinent Findings EKG Perinent findings: September 29, 2024. AV sequential or dual-chamber electronic pacemaker. August 08, 2022. Atrial ventricular dual paced complexes. Stress test pertinent findings: May 14, 2023. Adenosine stress test. EKG portion of adenosine stress test is nondiagnostic for ischemia. On nuclear SPECT no evidence of infarct or ischemia noted. Left ventricular ejection fraction is 55%. Echo (EF%) pertinent findings: May 21, 2023. Ejection fraction 55 to 60%. No aortic stenosis noted. Heart catheterization pertinent findings: January 10, 2015. Normal coronary arteries. Most significant stenosis is 20% in the left main ostial lesion. Ejection fraction is 50 to 55%. Consult pertinent findings: March 11, 2023. Dr. Gotti. 1. Atrial fibrillation-on oral rivaroxaban. Interrogation of device detects no episodes of A-fib. 2. 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 He also complains of vague chest discomfort. Will assess left ventricular function as well as underlying coronary perfusion via stress testing. Plan for echo and stress test. 3. Sinus node dysfunction-status post dual-chamber pacemaker implantation. 4. Cardiac dual-chamber pacemaker-left ventricle right ventricular side to simultaneous. 5. 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 Recommendation Anesthesia Recommendation Anesthesia recommendation: OPTIMIZED for anesthesia
--- NOTE | 2024-10-17 07:32 | PCM.HP.BLA ---
History and Physical History and Physical Patient Name: Quinn Evangelista : 1945From:? RADU SMITH PA-C DATE OF PRE-OPERATIVE EXAM: 10/14/2024 DATE OF SURGERY:? 10/24/2024 SCHEDULED PROCEDURE:? Robotic-assisted left total knee arthroplasty HISTORY OF PRESENT ILLNESS: Preoperative history and physical exam was performed on October 14, 2024.? This is a 79-year-old male who has been having ongoing pain with his left knee for over one year.? Pain can reach 4/10 with activities.? He gets soreness in the knee.? Patient has increased pain going up and down stairs and walking.? He has difficulty putting on his socks and shoes due to limited bending of the knee.? He also states that his activities of daily living including leisure activity such as walking in the once has been affected.? He does report previous remote history of injury in which he has had problems ever since then.? Patient has tried oral medications including Tylenol without relief.? Patient does use a cane for ambulatory assistance.? He has used elastic sleeve without relief.? Denies past history of surgery on the left knee.? After failing conservative measures and discussing treatment options was Dr. Adolph Martinez, the patient does wish to proceed with a robotic assisted left total knee arthroplasty.? Patient has obtain surgical clearance from the primary care provider Antonietta Figueredo CNP and human resources professional Dr. Gotti.? Patient has been instructed to stop his Xarelto 3 days prior to surgery.? He uses this for atrial fibrillation.? Patient does have pacemaker.? He has type 2 diabetes mellitus with his last A1c 5.7.? Patient does have preoperative anemia with hemoglobin currently at 11.8 and platelets at 134.? He has been started on our anemia protocol.? Patient denies any recent chest pain, shunt of breath, fevers chills, or recent infections.? Denies past history of DVT or pulmonary embolism. REVIEW OF SYSTEMS: Review Of Systems: Constitutional: Denies anorexia, anxiety, change in appetite, fever, difficulty sleeping, weight change. Cardiovasular: Reports irregular heartbeat, but denies chest pain, heart murmur and peripheral vascular disease. Respiratory: Denies asthma, cough, pneumonia, sleep apnea, shortness of breath, tuberculosis and wheezing. Gastrointestinal: Denies constipation, diarrhea, heartburn, nausea, rectal itching, bloody stools and vomiting. Genitourinary: Denies incontinence. Musculoskeletal: Reports gait disturbance, pain, trouble walking and weakness, but denies leg swelling. Skin: Denies Raynaud's, history of shingles and tattoo. Neurological: Reports numbness/tingling but denies ambulatory dysfunction, dizziness and tremor. Psychiatric: Denies anxiety, depression, insomnia, mental illness and stress. Hematologic/Lymphatic: Reports anemia and bleeding/bruising tendency, but denies past transfusion. Reviewed and updated. PAST MEDICAL HISTORY: Advance Care Plan: Other Directive, LIVING WILL Effective Date: 05/02/2024 Past Medical History: Medical Problems: Diabetes Cancer - (2005) colon - in remission Pacemaker Afib - stage 3 cardiomyopathy, benji parkinson white syndrome, intermittent complete heart block, anemia, BPH, Peripheral neuropathy, sick sinus syndrome, thrombocytopenia Accidents: None Surgical Hx: Colon Resection - (2005) [facility] Gallbladder - (2005) [facility] Tonsillectomy - (1969) [facility] Revision RMF - (12/22/2007) DR RAMOS [facility] Prostate Surgery - 06/26/10-[facility] Pacemaker - 2013 THEN 2019 Heart Ablation - (1994) [facility] toe amputation - partial - right third and fourth Anesthesia Complications: None Assistive Devices: Glasses Reviewed and updated. 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 Personal Habits:? Cigarette Use: Never.Smokeless Tobacco: Never Used Smokeless Tobacco.E-Cigarette Use: Never used.Alcohol: Denies use.Drug Use: Denies Use.Enjoy Exercising: Exercises 1-3 x/month. Reviewed and updated. VITALS: Ht: 69.8 Wt: 185lb Wt k.916 BMI: 26.7 BP: 128/78 Pulse: 77 Resp: 16 T: 96.7 T: 35.9C Pain Level: 4 O2SatR: 100 ALLERGIES: No Known Drug Allergy MEDICATIONS: Oxycodone HCL 5 mg 1-2 tablets by mouth every 4 hours as needed, Ondansetron HCL 4 mg 1 tablet by mouth every 8 hours as needed for nausea, Famotidine 20 mg 1 tablet by mouth every day, Ferrous Sulfate 325 (65 Fe) MG take 1 tablet by mouth twice a day, Folic Acid 1 mg 1 by mouth every day, Beta Prostate OTC? 1 po q day, Carvedilol 6.25 mg 1 po bid, Drug [place] Unilet Lancets Super Thin 30G 30g, Lisinopril 2.5 mg take 1 tablet by mouth once daily., Freestyle Precision Tai Blood Glucose Test Strips? check blood sugar daily and as needed. e11.9 dm type 2, not on insulin, Xarelto 20 mg 1 po qdaily, Preservision Areds 2 Areds 2 daily PRE-OP EXAM: General appearance:NORMAL? Other: Eyes: Conjunctivae and lids: NORMAL? Pupils: ERR Ears, Nose, Mouth, and Throat: NORMAL? Other: Inspection of lips, teeth and gums: NORMAL?? Other: Neck: Examination of neck: no masses noted. Respiratory: Assessment of respiratory effort: NORMAL?? Other: ? Auscultation of lungs: clear to auscultation no wheezes, rhonchi or rales. Cardiovascular:? Auscultation of heart: regular rate and rhythm, no murmurs, gallops or rubs. PHYSICAL EXAMINATION: Patient does walk with an antalgic gait.? Left knee is without erythema or signs of infection.? Tenderness to palpation over the medial and lateral joint line.? Patient does have valgus alignment.? Stable to varus/fibrous stress test, stable to anterior/posterior drawer exam.? Range of motion: Lacks 5 full extension to 110 flexion left knee.? Sensation intact to light touch. 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 IMPRESSION: 1.? 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 Type 2 diabetes mellitus: A1c 5.7 3.? Atrial fibrillation currently on Rivaroxaban 4.? History pacemaker 5.? Cardiomyopathy 6.? Benign prostatic hyperplasia 7.? Peripheral neuropathy 8.? Preoperative anemia and thrombocytopenia: Started on folic acid and ferrous sulfate 9.? Past history of colon cancer in remission 10.? Overweight with BMI 26.7 PLAN: Dr. Adolph Martinez did discuss and review with the patient all treatment options including surgical versus nonsurgical options.? I will continue plan established by Dr. Adolph Martinez.? Patient does wish to proceed with the above-stated procedure.? Potential risks, benefits, and complications of the procedure were discussed in detail including but not limited to , infection, nerve and blood vessel damage, persistent pain, numbness, tingling, paresthesias, blood clot, pulmonary embolism, and requirement for possible further surgery.? The patient expressed full understanding and has no further questions for the doctor.? Patient does agree to proceed with the above-stated procedure and has signed the surgery consent form. POST-OP MEDICATION PLAN: Pain Medications:? Patient was given the following medications at the preoperative visit: Oxycodone, Zofran, and famotidine.? Patient was instructed to take Extra strength Tylenol, and senna.? Patient was placed on our anemia protocol in which he will be taking ferrous sulfate and folic acid.? Patient was instructed on his preoperative anemia and thrombocytopenia and given a lab order so that he can follow-up with his primary care physician 1 week postoperatively for further treatment.? He did voice understanding.? He will make this appointment on his own.? Patient was instructed to bring his walker to the hospital. DVT Prophylaxis: Patient was instructed by outside provider to stop his Rivaroxaban 3 days prior to surgery.? He will resume this on postoperative day #1 as prescribed.? This will cover him for DVT prophylaxis.? He denies past history of DVT or pulmonary embolism. ? This dictation was created using voice recognition software. Phonetic and/or grammatical errors may exist. ___? I have re-examined the patient.? There are no clinical changes since date of exam. ___? See progress notes for changes. ___? Dictated on admission Date: ? Time: Signature:
[2024-10-24] VITALS (14 sets, daily range): BP systolic 74–117; BP diastolic 43–73; PULSE 72–97; RESP 14–20; TEMP 36–36.3; O2SAT 94–100; BMI 25.9
--- NOTE | 2024-10-24 06:59 | PRE.ANES_ITS ---
ASA Classification* ASA Classification ASA Classification: 3 Assessment & Plan Anesthesia* Anesthesia Assessment Anesthesia Assessment: Discussed sedation and/or anesthesia options, risks, benefits, and alternatives with patient/parents/legal guardian/POA. Questions invited. The patient/parents/legal guardian/POA seems to understand and agrees to proceed with anesthesia plan. Reviewed the physical assessment, medical history, allergy history and patient home medications list prior to surgery/procedure/anesthetic and documented any changes. Performed airway and anesthesia risk assessments. Anesthesia Type Anesthesia Type: Block Anesthesia Focused Assessment* Airway Assessment Mouth opens: >3 cm Mallampati Score: II Focused Labs Anesthesia Preop lab: CBC WBC 3.9 K/mm3 (4.4-11.0) L 09/29/24 08:10 09/29/24 RBC 3.97 M/mm3 (4.6-6.2) L 09/29/24 08:10 09/29/24 Hgb 11.8 g/dL (13.0-16.5) L 09/29/24 08:10 5 Hct 37.0 % (40-54) L 09/29/24 08:10 09/29/24 Plt Count 134 K/mm3 (150-450) L 09/29/24 08:10 09/29/24 CHEMISTRY Potassium 4.1 mmol/L (3.5-5.1) 09/29/24 08:10 09/29/24 Sodium 140 mmol/L (136-145) 09/29/24 08:10 09/29/24 Magnesium 2.1 mg/dL (1.6-2.6) 09/29/24 08:10 09/29/24 BUN 25 mg/dL (7-18) H 09/29/24 08:10 09/29/24 Creatinine 0.84 mg/dL (0.70-1.30) 09/29/24 08:10 09/29/24 Glucose 107 mg/dL (74-106) H 09/29/24 08:10 09/29/24 POC Glucose 140 mg/dL (70-110) H 09/10/21 07:27 09/10/21 COAG PT 19.6 SECONDS (11.7-14.9) H 09/29/24 08:10 09/08 11/29 Pre-Assessment Diagnosis/Proposed Procedure Planned Operative Procedure(s): (L) ROBOTIC ASSISTED LEFT TOTAL KNEE ARTHROPLASTY, ERAS Anesthesia History Anesthesia History - diagnostic cardiac sonographer: Anesthesia History - diagnostic cardiac sonographer Hx Hospitalization No 09/26/24 08:21 Any Problems With Anesthesia No 09/26/24 08:21 Cholinesterase deficiency No 09/26/24 08:21 You/Your Family Experience No 09/26/24 08:21 fever (hyperthermia) with Relationship Recent Exposure to Contagious No 07/01/19 06:20 Disease Does patient have nerve No 09/26/24 08:21 stimulator Patient instructed to have device shut off --Does patient have Pacemaker or ICD? When Was Last Pacemaker Check JANUARY 2016 06/30/19 10:34 QUESTION #4 FULL TEXT: You/Your Family Experience fever (hyperthermia) with Anesthesia Last Oral Intake Last Oral intake: Last Oral Intake NPO since Meds taken in AM with sips of water? Meds patient instructed to take am of surgery PONV PONV - diagnostic cardiac sonographer: PONV - diagnostic cardiac sonographer Female No 09/26/24 08:21 HX of Motion Sickness Yes 09/26/24 08:21 HX of N/V After Surgery No 09/26/24 08:21 Non-Smoker Yes 09/26/24 08:21 Duration of Surgery greater Yes 09/26/24 08:21 than 60 minutes Number of Risk Factors 3 09/26/24 08:21 PONV Score Moderate Risk 09/26/24 08:21 Height & Weight Height & Weight: Anesthesia: Height & Weight Height 5 ft 11 in 05/08/24 09:38 Respiratory Assessment Respiratory Assessment - diagnostic cardiac sonographer: Respiratory Tract Infection Hx - diagnostic cardiac sonographer Hx Respiratory Tract Infection No 09/26/24 08:21 STOP Sleep Apnea STOP Sleep Apnea - diagnostic cardiac sonographer: STOP Sleep Apnea - diagnostic cardiac sonographer Hx Hypertension Yes: CONTROLLED WITH MED 09/26/24 08:21 Hx Sleep Apnea No 09/26/24 08:21 CPAP No 09/26/24 08:21 BIPAP No 09/26/24 08:21 Do you snore loudly (louder No 09/26/24 08:21 than talking or can be heard Do you often feel tired/ No 09/26/24 08:21 fatigued/ sleepy during daytime? Has anyone observed you stop No 09/26/24 08:21 breathing during sleep? STOP Results Negative 09/26/24 08:21 QUESTION #5 FULL TEXT : Do you snore loudly (louder than talking or can be heard through closed doors)? 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 Specify any problems Hx of Preganancy in last 3 N/A 09/26/24 08:21 Months Nurse Filling Out Transfusion MGRIFFITH 09/26/24 08:21 & Questions: Date: 09/26/24 09/26/24 08:21 Time: 08:23 09/26/24 08:21 Patient unable to answer at this time (ie. confused, unrespo /Reproduction History /Reproductive History - diagnostic cardiac sonographer: /Reproductive Hx- diagnostic cardiac sonographer Hx Now Gestational Age (in weeks): EDC: Hx Hx Para Hx Section SAB No 09/03/21 14:25 Active Medications Active Medications: Current Medications Generic Name Dose Route Start Last Admin Trade Name Evelyne PRN Reason Stop Dose Admin Acetaminophen 1,000 mg 10/24/24 08:45 Acetaminophen 500 Mg Tablet PO 10/24/24 08:46 X1 ONE Celecoxib 400 mg 10/24/24 08:45 Celecoxib 200 Mg Capsule PO 10/24/24 08:46 X1 ONE Tranexamic Acid 2,000 mg/ 0 mg 10/24/24 08:45 Sodium Chloride 100 ml OPERA.SITE 10/24/24 08:46 X1 ONE Sodium Chloride 77.4 ml/ 0 ml 10/24/24 08:45 Ropivacaine 200 mg/ OPERA.SITE 10/24/24 08:46 Epinephrine HCl 0.6 mg/ X1 ONE Ketorolac Tromethamine 30 mg/ Morphine Sulfate 5 mg Dexamethasone Sodium Phosphate 10 mg 10/24/24 08:45 Dexamethasone 10 Mg/Ml Vial IV 10/24/24 08:46 X1 ONE Gabapentin 600 mg 10/24/24 08:45 Gabapentin 600 Mg Tablet PO 10/24/24 08:46 X1 ONE Lactated Ringer's 1,000 mls @ 999 mls/hr 10/24/24 08:45 IV 10/24/24 09:45 .Q1H1M MELO Cefazolin Sodium 2 gm/ N/A 20 mls @ 400 mls/hr 10/24/24 08:45 IV 10/24/24 08:47 PREOP ONE Magnesium Sulfate 1 gm/ 102 mls @ 408 mls/hr 10/24/24 08:45 Dextrose IV 10/24/24 08:59 X1 ONE Insulin Human Lispro 1 - 6 unit 10/24/24 08:45 Insulin Lispro 100 Unit/Ml Insuln.Pen SC 10/24/24 14:45 Q4H PRN PRN BG>/= 180, SEE PROTOCOL Protocol PFSH Medical History Arthritis Excessive bleeding History of diverticulitis History of echocardiogram Wears hearing aid Wears glasses Cancer Diabetes Prostate disease Dietary restriction Non-smoker Leg cramps Hypertension Cardiology follow-up encounter History of stress test History of atrial fibrillation Heart disease BPH associated with nocturia Septic shock Fever, unknown origin Severe sepsis Fever, unknown origin Sepsis Pacemaker Home Medications ?Medication ?Instructions ?Recorded ?Last Taken ?Type Super Beta Prostate 2 tab PO BID prostate 06/30/19 History vitamins A,C,R-weip-wtbujz 4,296 1 ea PO DAILY supplem ent 06/28/19 06/30/19 History mcg-226 mg-90 mg capsule rivaroxaban 20 mg tablet 20 mg PO DAILY blood thinner 01/29/20 Unknown History carvedilol 6.25 mg tablet 6.25 mg PO BID #60 tabs 01/06 04/26 Unknown Rx vit C 250 mg-vit E 90 mg-zinc 40 1 ea PO BID 02/02/20 Unknown Rx mg-copper 1 ak-mtzvbi-pqjgjv capsule lisinopril 5 mg tablet 2.5 mg PO DAILY 06/20/21 Unk nown History Allergy/AdvReac Type Severity Reaction Status Date / Time adhesive tape Allergy Rash Verified 09/26/24 08:17 bacitracin (From Neosporin Allergy Other Verified 09/26/24 08:17 ([id number])) bacitracin zinc (From Allergy Other Verified 09/26/24 08:17 Neosporin ([id number])) neomycin sulfate (From Allergy Other Verified 09/26/24 08:17 Neosporin (cxc-ein-[id number])) polymyxin B (From Neosporin Allergy Other Verified 09/26/24 08:17 ([id number])) polymyxin B sulfate (From Allergy Rash Verified 09/26/24 08:17 Polysporin) Surgical History History of radiofrequency ablation (RFA) procedure for cardiac arrhythmia Hx of colonoscopy History of cardiac catheterization Hx of amputation of lesser toe Hx of umbilical hernia repair S/P skin cancer resection S/P TURP Hx laparoscopic cholecystectomy S/P cardiac pacemaker procedure S/P tonsillectomy Social History Smoking Status: Never smoker alcohol intake: never Review of Systems (Anesthesia) ROS Narrative System reviewed and no additional complaints, except as documented.
--- NOTE | 2024-10-24 07:14 | RAD_ITS ---
PROCEDURE: Left knee radiographs REASON FOR EXAM: Postop TECHNIQUE: Two views of the left knee COMPARISON: None. FINDINGS: See impression RAD/Knee 1 or 2 Views IMPRESSION: Expected postsurgical change from left knee prosthesis placement. Alignment is anatomic. Negative for fracture. Reading Location: [facility]
[2024-10-24 07:34] LABS: Bedside Glucose 136 mg/dL (74-106)
[2024-10-24] MEDS: Lactated Ringers 1,000 ML 999 ML IV (08:07)
[2024-10-24] MEDS: Magnesium 1 GM over 15 mins IV (08:07)
[2024-10-24] MEDS: Gabapentin 600 MG Tablet PO (08:08)
[2024-10-24] MEDS: Acetaminophen 500 MG Tablet 1000 MG PO (08:08)
[2024-10-24] MEDS: Celecoxib 200 MG Capsule 400 MG PO (08:08)
[2024-10-24] MEDS: Cefazolin 2 GM in Syringe 10 ML IV (08:45)
--- NOTE | 2024-10-24 08:45 | KNEE_PTH ---
PATIENT: OLAYINKA LICONA LOC: [facility] [place] U#:[id number] AGE/SX: 79/M ROOM: RE10/24/[address]: Dr. Adolph Martinez MD : 1945 BED: DIS: 10/24/2024 SPEC #: [id number] RECD: 10/24/24 13:35 STATUS: ALDO REKian #: [id number] RUDDY: 10/24/24 08:[address]: Adolph Martinez DEPT: SURGICAL PATHOLOGY RECD BY: Ame Stone ENTERED: 10/24/24 13:49 SP TYPE: TOTAL KNEE OTHR DR: Dr. 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 Fibrocartilaginous tissue, fibroadipose tissue, fibroconnective tissue and reactive synovial tissue. : 10/27/2024 MICROSCOPIC DESCRIPTION Slides are reviewed. GROSS DESCRIPTION Received is one container designated bone and soft tissue left knee. The specimen consists of multiple fragments of zapata-yellow bone measuring in aggregate 11 x 10 x 3 cm. Also in the specimen container are multiple fragments of yellow-white soft tissue measuring in aggregate 7.5 x 5 x 1.5 cm. A number of bony fragments contain articular surfaces consistent with tibial plateau and femoral condyle and displaying prominent osteophyte formation, eburnation and bone erosion. [employer] sections are submitted in two cassettes as follows: 1 - soft tissue, 2 - bone after decalcification. / SJ. 10/24/2024 TC:5 CPT: 04998, 77969
[2024-10-24] MEDS: dexAMETHasone 10 MG/ML Vial IV (08:48)
[2024-10-24] MEDS: JPS (Morphine 10mg/ml) OPERA.SITE (09:15)
[2024-10-24] MEDS: TXA in NS 100ml (Placed in Wound) OPERA.SITE (09:15)
--- NOTE | 2024-10-24 09:38 | PCM.OPRPT ---
Operative Report (Standard) Operative Information Date of Procedure: 10/24/24 Pre-Operative Diagnosis: Left knee primary osteoarthritis, left knee valgus alignment Post-Operative Diagnosis: Left knee primary osteoarthritis, left knee valgus alignment Surgery/Procedure Performed: Left knee minimally invasive robotic assisted total knee replacement bee tender: Yes Transitions Manager: José Miguel Salas Tasks completed by assistant professor of philosophy: Other (See operative report) Additional trust operations assistant?: No Type of Anesthesia: Spinal RN Documented Start/Stop Times: Operation Date: 10/24/24 08:45 Case Time Into Pre-Op 10/24/24 06:47 Anesthesia Start 10/24/24 08:30 Into Room 10/24/24 08:30 Procedure Start 10/24/24 08:58 Procedure End 10/24/24 10:14 Anesthesia End 10/24/24 10:18 Out of Room 10/24/24 10:18 Into Recovery 10/24/24 10:23 Procedure Start Time: 08:58 Procedure Stop Time: 10:14 Select all DRAINS/GRAFTS/IMPLANTS that apply: Prosthetic device Prosthetic device details: See operative report Special Medications: 2 g Ancef, 1 g TXA at incision, 1 g TXA closure, 10 mg Decadron, joint cocktail (5 mg Duramorph, 30 mL of 0.5% Ropivicaine, 1000 units of epinephrine, 30 mg of Toradol) Estimated Blood Loss: 150 mL Fluids Replaced: 1000 mL crystalloid Specimen collected: Yes Description of specimen(s) removed: Bony cuts Description of surgery: Implants used: 1. [place] size 5 triathlon cruciate retaining distal femoral press-fit component 2. Jero size 6 press-fit tritanium tibial baseplate 3. Jero X3 10 mm CS polyethylene Brief history operative indications: 79-year-old M with history of left knee osteoarthritis with radiographic findings with loss of joint space, osteophyte formation and subchondral sclerosis. Failed conservative measures as mentioned in the H&P. Discussion of total knee arthroplasty as well as risk and benefits were discussed the patient including but not limited to blood loss, DVTs, PEs, neurovascular damage, general risk of anesthesia including loss of life, and stiffness or instability were discussed with patient. Patient demonstrated understanding and was able to sign informed consent. Procedure: On the date of procedure patient's left lower extremity was marked in the preoperative area. The patient was then taken back to the operating room where the patient was placed on the table in the supine position. All bony prominences were identified a well-padded. Anesthesia assumed control of the C-spine and airway and remained controlled throughout the remainder of the procedure. A tourniquet was placed on the left upper thigh and the leg was prepped in a sterile fashion. The surgeon then scrubbed at this time .Upon reentering the room left lower extremity was draped in a standard orthopedic fashion. A timeout was then called and everyone agreed upon the side, the site, the procedure to be performed, patient's identity and antibiotics given. Esmarch bandage was used to exsanguinate the extremity and the tourniquet was placed up to 250 mmHg with the knee in flexion. A midline skin incision was made and sharp dissection was taken down through skin subcutaneous tissue and fat. The standard medial parapatellar incision was made and the patella was subluxed laterally. An Appropriate deep MCL release was done and the fat pad was resected. Our attention was then directed to the patella. The patella was everted and cartilage was found to be acceptable for retaining negative patella. The knee was then flexed up in 2 femoral pins were placed inside the incision and 2 tibial pins were placed outside the incision in the medial tibia bicortically. Once this was completed the 2 checkpoints in the femur and tibia were placed. Knee was then flexed up and the bony landmarks were registered. Once this was completed knee was taken through range of motion and manually stressed allowing us to a plan for an appropriate tibial cut. The robotic arm was brought into the field sterilely and checkpoint and saw were registered. Based on the patient's deformity the tibial cut was made 2 degrees varus. At this time the tensioner was then placed in the joint and ligament tension was checked at 90 degrees and full extension. Based on the patient's ligamentous tension appropriate adjustments were made to the operative plan and ligament releases were done. Once we were happy with our operative plan with balanced flexion and extension gaps our attention was directed to the femur. The robot was brought into the field sterilely and registered. Posterior condylar cuts, anterior chamfer cuts and anterior cuts were appropriately made for a size 5 femur. When these were completed the saws were switched out in the distal femoral and posterior chamfer cuts were made. Protecting the soft tissue throughout this time. A size 6 tibial base plate was selected. the knee was flexed to 90 degrees and the soft tissues and posterior osteophytes were removed from the joint. 40 cc of the periarticular injection was injected into the posterior medial corner of the joint. The appropriate trials were then placed on the femur and tibia. A trial polyethylene was trialed to ensure proper balancing and stability of the knee. The appropriate tibial internal rotation was then marked with a bovie. Our attention was then directed to the patella. Patellar tracking was checked and deemed appropriate. Once we were happy lug holes were drilled for the femur and trial components were removed. The tibia was subluxed and pinned into place and the keel was punched and drilled appropriately. Final components were verified and opened. The wound was copiously irrigated with normal saline. When the cement was ready the components were impacted into place starting with the tibia then the femur, finally the patella was compressed into place. The trial poly component was placed and the knee was placed in full extension. Once the the implants were secured, the tracking, alignment and balance were verified and a size 10 mm CS polyethylene component was placed. Once the final components were placed a 3-minute dilute Betadine lavage was performed followed by an Irrisept lavage was performed and the wound was copiously irrigated with normal saline solution and the periarticular injection was given. The wound was closed in a layer cordoba fashion using #1 vicryl interrupted sutures for the arthrotomy, 2-0 interrupted Vicryl suture for the subcuticular layer and rafael for final skin closure. A sterile compressive dressing was then placed. The patient was then awakened from anesthesia, transferred to the [facility] and transferred to the PACU for recovery. Post op plan DVT ppx: Resume home dose of Xarelto tomorrow, thigh high compression stockings Follow up: in office in 2 weeks for wound check PT: to start POD #0 at hospital, outpatient PT should be arranged. My physician trust operations assistant was a vital part of this case, they was important because there was not another skilled set of hands available to their training and aptitude needed for safe and appropriate completion of this case. They were important in appropriate retraction during the case, and protection of soft tissues during bony cuts. In particular the experience and skill of this trust operations assistant made for safe retraction and exposure during implantation of medical implants without damage to vital soft tissues or structures. His intimate knowledge of the case and my steps aided in safe and expedient completion of the procedure as well as appropriate position of the leg during the case. He was also vital in assisting with closure under my direct supervision. Due to the complexity of this case robotic arm was used to assist in the surgery to improve accuracy and clinical outcomes. Surgical Findings: Stable knee with good patella tracking. Stage IV osteoarthritis Complications Complications: No Admit VTE Documentation VTE Present on Admission: No VTE Mechan Device Prophylaxis: SCD's and Thigh High NKECHI Hose VTE Pharm Prophylaxis ordered?: Yes
--- NOTE | 2024-10-24 10:24 | PCM.POST.ANE ---
Anesthesia: Postop Eval I Current Vital Signs Temperature: 97 F Pulse Rate: 80 Blood Pressure: 110/72 Respiratory Rate: 20 Pulse Ox: 96 Assessment Airway patent: Yes Spontaneous unlabored respirations: Yes nausea: No Vomiting: No Anesthesia Complication: No Fluid Hydration Crystalloid volume administer (ml): 1,300 Total IV fluid infused: 1,300 Progress Note Anesthesia document: Postop Eval 1 completed: Yes
[2024-10-24 11:08] LABS: Bedside Glucose 169 mg/dL (74-106)
--- NOTE | 2024-10-24 11:08 | POSTOPAN2_ITS ---
Anesthesia Postop Eval I Sum Postop Eval Completion status Anesthesia document: Postop Eval 1 completed: Yes Anesthesia Postop Eval I Summary Anesthesia Postop Eval I Summary: Anesthesia Postop Eval I: Assessment Summary Airway patent Yes 10/24/24 10:24 SOFTWARE MAINTENANCE [email or web address] Spontaneous unlabored Yes 10/24/24 10:24 SOFTWARE MAINTENANCE [email or web address] respirations Mental status nausea No 10/24/24 10:24 SOFTWARE MAINTENANCE [email or web address] Vomiting No 10/24/24 10:24 SOFTWARE MAINTENANCE [email or web address] Anesthesia Postop Eval I: Fluid Summary Crystalloid volume administer 1,300 10/24/24 10:24 SOFTWARE MAINTENANCE [email or web address].CSIR (ml) Colloids volume administered ( ml) Blood Product volume administered (ml) Total IV fluid infused 1,300 10/24/24 10:24 SOFTWARE MAINTENANCE [email or web address].CSIR Anesthesia Postop Eval I: Summary Notes Anesthesia Complication No 10/24/24 10:24 SOFTWARE MAINTENANCE [email or web address].[email or web address] Anesthesia Complication Comment: Post-operative progress note Anesthesia: Postop Eval II Evaluation Mental status: Awake Pain Level: 0 nausea: No Vomiting: No
--- NOTE | 2024-10-24 11:08 | PCM.POSTANE2 ---
Anesthesia Postop Eval I Sum Postop Eval Completion status Anesthesia document: Postop Eval 1 completed: Yes Anesthesia Postop Eval I Summary Anesthesia Postop Eval I Summary: Anesthesia Postop Eval I: Assessment Summary Airway patent Yes 10/24/24 10:24 RETAIL [email or web address] Spontaneous unlabored Yes 10/24/24 10:24 RETAIL [email or web address] respirations Mental status nausea No 10/24/24 10:24 RETAIL [email or web address] Vomiting No 10/24/24 10:24 RETAIL [email or web address] Anesthesia Postop Eval I: Fluid Summary Crystalloid volume administer 1,300 10/24/24 10:24 RETAIL [email or web address] (ml) Colloids volume administered ( ml) Blood Product volume administered (ml) Total IV fluid infused 1,300 10/24/24 10:24 RETAIL [email or web address] Anesthesia Postop Eval I: Summary Notes Anesthesia Complication No 10/24/24 10:24 RETAIL [email or web address] Anesthesia Complication Comment: Post-operative progress note Anesthesia: Postop Eval II Evaluation Mental status: Awake Pain Level: 0 nausea: No Vomiting: No
[2024-10-24] MEDS: Ketorolac 30 MG/ML Syringe IV (12:11)
[2024-10-24] MEDS: Cefazolin 1 GM/50 ML BAG IV (13:32)
[2024-10-24] MEDS: 0.9% Normal Saline (500mL Bag) 500 ML 999 ML IV (14:52)
[2024-10-28 17:45] LABS: Prothrombin Time Fingerstick 11.6 SEC (11.7-14.9)
== END 2024-10-24 16:39 | disposition home or self-care (01) ==
LOC: SDC 06:45 → AC 06:49
PROVIDERS: Anesthesiology; PCP Internal Medicine; Referring Provider Specialist; Visit Provider Specialist
PROC: 0SRD0JZ Replacement of Left Knee Joint with Synthetic Substitute, Open Approach (ICD-10-PCS; CPT 27447; principal; 2024-10-24 08:15)
DX: M17.12 Unilateral primary osteoarthritis, left knee (principal); I48.91 Unspecified atrial fibrillation; E11.42 Type 2 diabetes mellitus with diabetic polyneuropathy; Z79.4 Long term (current) use of insulin; Z95.0 Presence of cardiac pacemaker; D69.6 Thrombocytopenia, unspecified; D64.9 Anemia, unspecified; Z79.01 Long term (current) use of anticoagulants; M21.062 Valgus deformity, not elsewhere classified, left knee; Z85.038 Personal history of other malignant neoplasm of large intestine; I10 Essential (primary) hypertension; Z79.899 Other long term (current) drug therapy
CPT/HCPCS: 27447; S2900; 01402; 64447; 36415; 36416; 73560; 80048; 80076; 82962; 83036; 83735; 85025; 85610; 85730; 87081; 88305; 88311; 93005; 97162; C1776; J2405; J3475

== ENCOUNTER 2024-11-07 13:12 | Emergency (ER) | payer MEDICARE, SELFPAY ==
[2024-11-07 13:13] VITALS: BP 123/48; PULSE 70; RESP 16; TEMP 36.8; O2SAT 100
== END 2024-11-07 14:10 | disposition left against medical advice (07) ==
LOC: ED 14:27
PROVIDERS: PCP Internal Medicine
DX: Z53.21 Procedure and treatment not carried out due to patient leaving prior to being seen by health care provider (principal)

== ENCOUNTER 2025-01-06 10:30 | Outpatient (RCR) | payer MEDICARE, SELFPAY ==
--- NOTE | 2024-12-14 15:33 | HP.PTEVAL ---
Patient's Visit Information Visit Information Visit Information: OLAYINKA LICONA is a 79 year old M referred to Physical Therapy by Dr. Adolph Martinez MD with a diagnosis of L TKA 10/24/24. Date of Evaluation: 12/14/24 Physical Therapist: Shayne Cruz, PT, ATC Visit Plan Frequency: 2x /Week Duration: 4-6 Weeks Plan: Focus on L knee extension ROM and strength at this time. Subjective Subjective: DOS: 10/24/24. Pt reports he had a L TKA performed at that time. Pt notes he had PT afterwards for about six weeks, but his insurance ran out so he decided to come here. Pt reports he has progressed pretty well at this time, but notes his knee is not lined up right right now and wants PT to fix that. Pt reports his doctor wants him to wear a brace, but he doesn't really want one. Pt denies tingling or numbness in that L knee region at this time. Pt reports he has sleep difficulty at night secondary to pain. Pt reports he is able to sleep for about 1-2 hours in bed, but then has to get up to his recliner to sleep for the rest of the night. 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 Pt reports he lives in a split level house, and negotiates his stairs one step at a time. Pt reports 0/10 pain at rest at this time, 4/10 pain at worst Pain L knee: Pain Intensity (Out of 10): 0 Pain Intensity Range: 4 Objective Objective: Neuro: B LE sensation is WNL to light touch Observation: Pt ambulates with lack of heel strike secondary to L knee flexor contracture. TU sec ROM: R knee 0-125 degrees ; L knee 0-17-100 degrees MMT: R knee flex= 30, ex= 44 #F; L knee flex= 23, ext= 24 #F Balance/Special Test Scores Lower Extremity Functional Score: 43 Goals Goal 1:: Increase L knee ext strength x 10 #F to aid with stair negotiation Goal Time Frame: 4-6 Weeks Goal 2:: Increase L knee extension ROM x 10 degrees to aid with restoring a more normalized gait pattern Goal Time Frame: 4-6 Weeks Goal 3:: Pt to perform the TUG in under 10 sec Goal Time Frame: 4-6 Weeks Goal 4:: I with HEP Goal Time Frame: 4-6 Weeks Rehabilitation Potential Physical Therapy Diagnosis: Pt has L knee pain, weakness, and limited ROM secondary to L knee replacement Rehabilitation Potential: Good Anticipated Interventions Patient/Client Instruction: Educate patient on: Condition and Plan of Care For the Purpose of:: To improve self management Therapeutic Exercise to Include: Strength training, Endurance training, Balance training, Flexibilty training, Passive ROM, Active ROM and Dynamic Lumbar Stabilization For the Purpose of:: To decrease pain, To increase ROM and To improve muscle performance and motor function Text: Thank you for the opportunity to evaluate your patient. For Medicare and Medicare HMO plans, please review the plan of care and approve it. It will need to be FAXED BACK to us at [phone] for Medicare purposes. For Medicare only, by signing this I certify the plan of care. Please let me know if there are questions or concerns regarding this plan of care. Physician Signature: Date:
--- NOTE | 2025-03-03 14:00 | HP.PTDCNRP_ITS ---
Patient Information Patient Information: OLAYINKA LICONA was seen in my office for initial evaluation on 12/14/24. The following Plan of Care was established for this patient: POC Established Initial Frequency: 2x /Week Initial Duration: 4-6 Weeks Anticipated Interventions Patient/Client Instruction: Educate patient on: Condition and Plan of Care For the Purpose of:: To improve self management Therapeutic Exercise to Include: Strength training, Endurance training, Balance training, Flexibilty training, Passive ROM, Active ROM and Dynamic Lumbar St abilization For the Purpose of:: To decrease pain, To increase ROM and To improve muscle performance and motor function Last Seen Last Seen: This patient was last seen in our office . Pertinent comments regarding their Physical therapy will appear below: Pt has not returned for greater than 30 days and is discharged at this time. At this point I will be discontinuing this patient from physical therapy. I would be happy to see this patient again in the future if found appropriate by the physician. Thank you! Shayne Cruz, PT, ATC Balance/Gait/Functional tests Balance/Special Test Scores Lower Extremity Functional Score: 43
== END 2025-01-06 19:00 | disposition home or self-care (01) ==
LOC: PT 10:30
PROVIDERS: PCP Internal Medicine; Referring Provider Specialist; Visit Provider Specialist
DX: T84.82XD Fibrosis due to internal orthopedic prosthetic devices, implants and grafts, subsequent encounter (principal)
CPT/HCPCS: 97110; 97161